=== PATIENT | male | born 1940 | race Caucasian/White ===

== ENCOUNTER 2017-02-08 19:48 | Inpatient (IN) | payer OTHER ==
[~2017-02-08] VITALS: Ht 180.3 cm; Wt 93.9 kg
[~2017-02-08 19:48] MED LIST: ASPI81TA28 PO; ATOR-26 PO; FERRTAB18 PO; FLV400 PO; FRS/40 PO; GLIP10TA3 PO; ISOS60TA2 PO; METF-383 PO; METO-217 PO; NSP/1000 PO; NTRGSL/4 UT; SITA1TAB27 PO; SLWMEC PO; WARF5TAB7 PO
[2017-02-08] MEDS ORDERED: SODIUM CHLORIDE 0.9% 1000ML 1,000 ML IV STA (20:06)
[2017-02-08] MEDS ORDERED: OPTIRAY 320 IV PRN (20:15)
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
[2017-02-08 20:18] LABS: BASO % 0.5 %; BASO ABS # 0.04 K/uL (0-0.2); COMPLETE YES; EOS % 2.1 %; HEMATOCRIT 32.8 % (42-52); IG% 0.4 %; LYMPH % 10.5 %; LYMPH ABS # 0.79 K/uL (1.2-3.4); MEAN CELL VOLUME 88.9 fL (80-100); MEAN CORPUSCULAR HEMOGLOBIN 30.1 pg (25-34); MEAN CORPUSCULAR HGB CONC 33.8 g/dl (32-36); MEAN PLATELET VOLUME 10.9 fL (7.4-10.4); MONO % 9.3 %; NEUT % 77.2 %; PLATELET COUNT 155 K/uL (130-400); RED BLOOD COUNT 3.69 M/uL (4.7-6.1); WHITE BLOOD COUNT 7.51 K/uL (4.8-10.8)
[2017-02-08 20:31] LABS: PROTHROMBIN TIME (PATIENT) 41.3 SECONDS (9.0-12.0)
[2017-02-08 20:36] LABS: BUN/CREATININE RATIO 16.3 (10-20); CALCIUM 8.6 mg/dl (8.5-10.1); CREATININE 1.5 mg/dl (0.60-1.40); MAGNESIUM 1.8 mg/dl (1.8-2.4); POTASSIUM 4.9 mmol/L (3.5-5.1)
[2017-02-08 20:37] LABS: INR 3.7 (0.9-1.1)
[2017-02-08] MEDS ORDERED: GLIP5TAB3 PO (20:44)
[2017-02-08] MEDS ORDERED: LISI-789 PO (20:44)
[2017-02-08] MEDS ORDERED: WARF5TAB90 PO ×2 (20:44)
--- NOTE | 2017-02-08 21:29 | DIAGNOSTIC IMAGING REPORT ---
HEAD CT NONCONTRAST CT DOSE: HISTORY: syncope TECHNIQUE: Multiaxial CT images of the head were performed without the use of intravenous contrast. Automated exposure control was utilized for this study. A dose lowering technique was utilized adhering to the principles of ALARA. Comparison: None. Findings: The paranasal sinuses and mastoid air cells are clear. The calvarium and skull base are intact. The ventricles and sulci are within normal limits. There is no mass, hematoma, midline shift, or acute infarct. Impression: No acute intracranial abnormality. Electronically signed by: Kings Rodrigez M.D. 02/08/2017 9:28 PM Dictated Date/Time: 02/08/2017 9:25 PM
--- NOTE | 2017-02-08 21:58 | DIAGNOSTIC IMAGING REPORT ---
CHEST, ABDOMEN AND PELVIS CTA for AORTIC DISSECTION CT DOSE: 4914.46 mGy.cm HISTORY: Syncope. Mid CHEST PAIN, DISSECTION PROTOCOL PER DR MICHAEL TECHNIQUE: Multiaxial CT images of the chest were performed both before and after the intravenous administration of contrast to evaluate the aorta. Maximal intensity projection images were also obtained. A dose lowering technique was utilized adhering to the principles of ALARA. COMPARISON STUDY: None. FINDINGS: Noncontrast imaging through the chest shows no evidence for an intramural hematoma within the thoracic aorta. The heart is mildly enlarged. Left-sided pacemaker is noted. No evidence for an aortic dissection or aneurysm. The central pulmonary arteries are patent. Moderate calcified plaque within the abdominal aorta and iliac arteries. Moderate to large right and small to moderate left pleural effusions. No pericardial effusion. No mediastinal hematoma. Mild mediastinal lymphadenopathy. Dominant subcarinal lymph node measures 2.7 x 1.4 cm. No hilar lymphadenopathy. Poststernotomy changes. The central airways are patent. No pneumothorax. A few scattered punctate calcified granulomas. Bilateral groundglass airspace opacities favor mild posterior edema. Bibasilar densities are nonspecific but favor compressive atelectasis. This is most pronounced within the right lower lobe. Multiple bilateral rib deformities favor old, healed fractures. No pneumoperitoneum. No pneumatosis. A right total hip arthroplasty. There are few small gallstones. The liver, spleen, adrenal glands, and pancreas are unremarkable. No hydronephrosis. There are 2 cysts within the right kidney both measuring approximate 2 cm. No retroperitoneal hematoma. No retroperitoneal lymphadenopathy. Bladder is not well visualized but appears to be unremarkable. Colonic diverticulosis. No bowel wall thickening or obstruction. IMPRESSION: 1. No evidence for an aortic dissection. 2. Moderate to large right and envtf-ar-vepiwoha left pleural effusions. 3. Groundglass airspace opacities within the lungs favor mild pulmonary edema. 4. Right greater than left bibasilar airspace opacities. This favors compressive atelectasis from the pleural effusions. A pneumonia could also have a similar appearance in the appropriate clinical setting. 5. No acute traumatic process within the abdomen or pelvis. 6. Additional findings as described above. Electronically signed by: Kings Rodrigez M.D. 02/08/2017 9:56 PM Dictated Date/Time: 02/08/2017 9:28 PM
[2017-02-08] MEDS ORDERED: FUROSEMIDE 40 MG/4 ML VIAL IV STA (22:28)
[2017-02-09] VITALS (12 sets, daily range): BP systolic 110–155; BP diastolic 38–83; PULSE 53–77; TEMP 36.5–36.8; O2SAT 92–98; Ht 180.3 cm; Wt 93.9 kg
[2017-02-09] MEDS ORDERED: ACETAMINOPHEN 325 MG TAB PO PRN (02:00)
[2017-02-09] MEDS ORDERED: GLUCOSE 10 TABS/TUBE PO PRN (02:15)
[2017-02-09] MEDS ORDERED: DEXTROSE 50% 50 ML SYR IV PRN (02:15)
[2017-02-09] MEDS ORDERED: GLUCOSE 40% GEL 15 GM TUBE PO PRN (02:15)
[2017-02-09] MEDS ORDERED: GLUCAGON FOR INJ 1 MG VIAL SQ PRN (02:15)
[2017-02-09 02:39] LABS: BASO % 0.3 %; BASO ABS # 0.02 K/uL (0-0.2); COMPLETE YES; EOS % 0.4 %; HEMATOCRIT 30.3 % (42-52); IG% 0.3 %; LYMPH % 13.3 %; MEAN CELL VOLUME 88.1 fL (80-100); MEAN CORPUSCULAR HEMOGLOBIN 29.4 pg (25-34); MEAN CORPUSCULAR HGB CONC 33.3 g/dl (32-36); MEAN PLATELET VOLUME 10.2 fL (7.4-10.4); MONO % 6.5 %; NEUT % 79.2 %; PLATELET COUNT 142 K/uL (130-400); RED BLOOD COUNT 3.44 M/uL (4.7-6.1); WHITE BLOOD COUNT 6.75 K/uL (4.8-10.8)
[2017-02-09 02:58] LABS: PROTHROMBIN TIME (PATIENT) 42.6 SECONDS (9.0-12.0)
[2017-02-09 03:00] LABS: INR 3.8 (0.9-1.1)
[2017-02-09 03:08] LABS: CALCIUM 8.5 mg/dl (8.5-10.1); CKMB/CK RATIO 4.4 (0-3.0); CREATININE 1.3 mg/dl (0.60-1.40); POTASSIUM 4.7 mmol/L (3.5-5.1)
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
[2017-02-09 08:05] LABS: BASO % 0.2 %; BASO ABS # 0.01 K/uL (0-0.2); COMPLETE YES; EOS % 1.7 %; HEMATOCRIT 31.1 % (42-52); IG% 0.2 %; LYMPH % 15.7 %; LYMPH ABS # 0.85 K/uL (1.2-3.4); MEAN CELL VOLUME 88.1 fL (80-100); MEAN CORPUSCULAR HEMOGLOBIN 29.5 pg (25-34); MEAN CORPUSCULAR HGB CONC 33.4 g/dl (32-36); MEAN PLATELET VOLUME 9.9 fL (7.4-10.4); NEUT % 74.2 %; PLATELET COUNT 138 K/uL (130-400); RED BLOOD COUNT 3.53 M/uL (4.7-6.1)
[2017-02-09] MEDS: LISINOPRIL 2.5 MG TAB PO SCH (08:12)
[2017-02-09] MEDS: MAGNESIUM CHLORIDE 64MG DELAYED REL TAB PO SCH ×2 (08:12→20:31)
[2017-02-09] MEDS: METOPROLOL SUCC 50MG EXT REL TAB PO SCH (08:12)
[2017-02-09] MEDS: ASPIRIN 81 MG ECTAB PO SCH (08:12)
[2017-02-09] MEDS: ISOSORBIDE MONONITRATE 60 MG TABCR PO SCH (08:13)
[2017-02-09 08:14] LABS: INR 3.5 (0.9-1.1); PROTHROMBIN TIME (PATIENT) 39.6 SECONDS (9.0-12.0)
[2017-02-09] MEDS: FUROSEMIDE INJ 40 MG in SYRINGE 0 ML IV SCH (08:15)
[2017-02-09 08:32] LABS: BUN/CREATININE RATIO 19.1 (10-20); CALCIUM 8.9 mg/dl (8.5-10.1); CREATININE 1.2 mg/dl (0.60-1.40); POTASSIUM 4.3 mmol/L (3.5-5.1)
[2017-02-09] MEDS ORDERED: AMIODARONE IV BOLUS / DRIP IV STA (08:32)
[2017-02-09 08:43] LABS: CKMB/CK RATIO 4.7 (0-3.0)
[2017-02-09] MEDS ORDERED: AMIODARONE / D5W 100 ML IV ONE (08:45)
--- NOTE | 2017-02-09 08:52 | ECHOCARDIOGRAM REPORT ---
*NOTICE TO RECEIVING [employer]PUBL[employer] AGENCY This information is strictly Confidential and protected under [place] law. [place] law prohibits you from making any further disclosure of this information unless further disclosure is expressly permitted by the written consent of the person to whom it pertains or is authorized by law. A general authorization for the release of medical or other information is not sufficient for this purpose. Hospital accepts no responsibility if the information is made available to any other person, INCLUDING THE PATIENT. Interpretation Summary * Name: ELOSIA BLANC Study Date: 02/09/2017 07:05 AM BP: 136/72 mmHg * Patient Location: C.2T\S\S239\S\1 HR: 53 * : 1940 (M/d/yyyy) Gender: Male Height: 71 in * Age: 76 yrs Ethnicity: [place] Weight: 213 lb * Ordering Physician: Ranjeet Veelz * Referring Physician: Self, Referred * Performed By: Marina Jerome RDCS * * Reason For Study: CHF * BSA: 2.2 m2 * -- Conclusions -- * Mildly dilated LV chamber size with global wall thinning. * Severely reduced LV systolic function, EF 20-25%. * The inferior and inferoseptal lew are akinetic. All other segments are severely hypokinetic except the posterior wall which contracts normally. * Grade II diastolic dysfunction. * Aortic valve sclerosis mild, without significant aortic valvular stenosis. * Moderate mitral regurgitation. * Mild left atrial enlargement. Procedure Details * A complete two-dimensional transthoracic echocardiogram was performed (2D, M-mode, Doppler and color flow Doppler). * A contrast injection of Definity was performed to improve assessment of LV function. * Contrast was injected into an intravenous site in the right arm. * One vial of Definity ultrasound contrast was diluted in normal saline to a total volume of 10 ml. A total of '3' ml of solution was administered during imaging. * Lot # [id number] of Definity utilized for procedure. * Expiration date MAR 21. * The attending nurse who injected the contrast agent was Ashley Zimmerman RN. Left Ventricle * The left ventricle is mildly dilated. * There is no thrombus. * There is global thinning of the left ventricular lew. * Left ventricular systolic function is severely reduced. * Ejection Fraction = 20-25%. * The inferior and inferoseptal lew are akinetic. All other segments are severely hypokinetic except the posterior wall which contracts normally. Right Ventricle * The right ventricular cavity size is normal (basal dimension <4.2 cm in right ventricular apical 4-chamber view). * The right ventricular systolic function is normal as assessed by tricuspid annular plane systolic excursion (TAPSE) (normal >1.5 cm). Atria * The left atrium is mildly dilated. * Right atrial size is normal. * No ASD detected; PFO is not assessed. Mitral Valve * The mitral valve anatomy is normal. * There is no mitral valve stenosis. * There is moderate mitral regurgitation. Tricuspid Valve * The tricuspid valve is normal in structure and function. Aortic Valve * The aortic valve is trileaflet. * Aortic valve sclerosis mild, without significant aortic valvular stenosis. * There is no significant aortic regurgitation. Pulmonic Valve * The pulmonary valve is not well seen, but the Doppler examination is normal without significant regurgitation or stenosis. Great Vessels * The aortic root and proximal ascending aorta are normal sized. Pericardium/Pleural * There is no pericardial effusion. Left Ventricular Diastolic Function * Diastolic dysfunction, Grade II (pseudonormalization pattern). MMode 2D Measurements and Calculations IVSd 1.0 cm LVIDd 5.9 cm LVIDs 4.7 cm LVPWd 0.97 cm IVS/LVPW 1.1 FS 19.8 % EDV(Teich) 173.6 ml ESV(Teich) 104.2 ml EF(Teich) 40.0 % EDV(cubed) 205.9 ml ESV(cubed) 106.2 ml EF(cubed) 48.4 % LV mass(C)d 239.8 grams LV mass(C)dI 110.7 grams/m\S\2 SV(Teich) 69.4 ml SI(Teich) 32.0 ml/m\S\2 SV(cubed) 99.7 ml SI(cubed) 46.0 ml/m\S\2 Ao root diam 3.3 cm Ao root area 8.6 cm\S\2 ACS 1.8 cm LA dimension 4.0 cm asc Aorta Diam 3.3 cm LA/Ao 1.2 LVOT diam 1.9 cm LVOT area 2.9 cm\S\2 Doppler Measurements and Calculations MV E max murray 117.2 cm/sec MV A max murray 85.5 cm/sec MV E/A 1.4 MV dec time 0.19 sec LV V1 max PG 1.9 mmHg LV V1 max 68.0 cm/sec MR max murray 483.2 cm/sec MR max PG 93.4 mmHg MR mean murray 386.0 cm/sec MR mean PG 66.0 mmHg MR VTI 178.7 cm PA V2 max 63.0 cm/sec PA max PG 1.6 mmHg PA acc slope 220.0 cm/sec\S\2 PA acc time 0.17 sec PA pr(Accel) 4.0 mmHg
[2017-02-09] MEDS: INSULIN ASPART 100 UNITS/ML 3 ML PEN SC SCH ×4 (08:57→20:34)
[2017-02-09] MEDS: AMIODARONE 200 MG TAB PO SCH ×3 (09:00→20:31)
[2017-02-09] MEDS ORDERED: AMIODARONE / D5W 200 ML IV SCH (09:00)
[2017-02-09] MEDS ORDERED: ATORVASTATIN 40 MG TAB PO SCH (09:00)
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
[2017-02-09] MEDS: AMIODARONE / D5W 200 ML IV SCH (14:26)
[2017-02-09 14:51] LABS: CKMB/CK RATIO 3.5 (0-3.0)
[2017-02-10] VITALS (11 sets, daily range): BP systolic 107–167; BP diastolic 54–90; PULSE 58–79; TEMP 36.5–36.8; O2SAT 93–97
[2017-02-10] MEDS: AMIODARONE / D5W 200 ML IV SCH (02:31)
[2017-02-10 06:45] LABS: BASO % 0.4 %; BASO ABS # 0.02 K/uL (0-0.2); COMPLETE YES; EOS % 4.3 %; HEMATOCRIT 31.1 % (42-52); IG% 0.4 %; LYMPH % 13.8 %; LYMPH ABS # 0.77 K/uL (1.2-3.4); MEAN CELL VOLUME 87.6 fL (80-100); MEAN CORPUSCULAR HEMOGLOBIN 29.3 pg (25-34); MEAN CORPUSCULAR HGB CONC 33.4 g/dl (32-36); MEAN PLATELET VOLUME 10.3 fL (7.4-10.4); MONO % 8.2 %; NEUT % 72.9 %; PLATELET COUNT 144 K/uL (130-400); RED BLOOD COUNT 3.55 M/uL (4.7-6.1); WHITE BLOOD COUNT 5.58 K/uL (4.8-10.8)
[2017-02-10 07:00] LABS: INR 2.8 (0.9-1.1); PROTHROMBIN TIME (PATIENT) 30.8 SECONDS (9.0-12.0)
[2017-02-10 07:21] LABS: BUN/CREATININE RATIO 17.9 (10-20); CALCIUM 8.2 mg/dl (8.5-10.1); CREATININE 1.3 mg/dl (0.60-1.40); POTASSIUM 4.1 mmol/L (3.5-5.1)
[2017-02-10] MEDS: FUROSEMIDE INJ 40 MG in SYRINGE 0 ML IV SCH (08:05)
[2017-02-10] MEDS: AMIODARONE 200 MG TAB PO SCH ×3 (08:06→20:49)
[2017-02-10] MEDS: MAGNESIUM CHLORIDE 64MG DELAYED REL TAB PO SCH ×2 (08:07→20:50)
[2017-02-10] MEDS: LISINOPRIL 2.5 MG TAB PO SCH (08:07)
[2017-02-10] MEDS: METOPROLOL SUCC 50MG EXT REL TAB PO SCH (08:07)
[2017-02-10] MEDS: ISOSORBIDE MONONITRATE 60 MG TABCR PO SCH (08:08)
[2017-02-10] MEDS: ATORVASTATIN 40 MG TAB PO SCH (08:08)
[2017-02-10] MEDS: ASPIRIN 81 MG ECTAB PO SCH (08:08)
[2017-02-10] MEDS: INSULIN ASPART 100 UNITS/ML 3 ML PEN SC SCH ×4 (08:15→20:49)
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
[2017-02-11 03:30] VITALS: BP 123/69; PULSE 60; TEMP 36.7; O2SAT 95
[2017-02-11 06:54] VITALS: BP 127/72; PULSE 59; TEMP 36.7; O2SAT 96
[2017-02-11 07:10] LABS: BASO % 0.3 %; BASO ABS # 0.02 K/uL (0-0.2); COMPLETE YES; HEMATOCRIT 30.5 % (42-52); IG% 0.6 %; LYMPH % 10.4 %; LYMPH ABS # 0.73 K/uL (1.2-3.4); MEAN CELL VOLUME 87.4 fL (80-100); MEAN CORPUSCULAR HEMOGLOBIN 29.2 pg (25-34); MEAN CORPUSCULAR HGB CONC 33.4 g/dl (32-36); MEAN PLATELET VOLUME 10.6 fL (7.4-10.4); MONO % 10.7 %; PLATELET COUNT 149 K/uL (130-400); RED BLOOD COUNT 3.49 M/uL (4.7-6.1)
[2017-02-11 07:19] LABS: INR 1.9 (0.9-1.1); PROTHROMBIN TIME (PATIENT) 20.5 SECONDS (9.0-12.0)
[2017-02-11] MEDS: MAGNESIUM CHLORIDE 64MG DELAYED REL TAB PO SCH (07:35)
[2017-02-11] MEDS: LISINOPRIL 2.5 MG TAB PO SCH (07:35)
[2017-02-11] MEDS: ATORVASTATIN 40 MG TAB PO SCH (07:36)
[2017-02-11] MEDS: METOPROLOL SUCC 50MG EXT REL TAB PO SCH (07:36)
[2017-02-11] MEDS: ISOSORBIDE MONONITRATE 60 MG TABCR PO SCH (07:36)
[2017-02-11] MEDS: ASPIRIN 81 MG ECTAB PO SCH (07:36)
[2017-02-11] MEDS: AMIODARONE 200 MG TAB PO SCH (07:36)
[2017-02-11 07:38] LABS: BUN/CREATININE RATIO 19.9 (10-20); CALCIUM 8.4 mg/dl (8.5-10.1); CREATININE 1.4 mg/dl (0.60-1.40); POTASSIUM 4.8 mmol/L (3.5-5.1)
[2017-02-11] MEDS: INSULIN ASPART 100 UNITS/ML 3 ML PEN SC SCH ×2 (07:42→11:00)
[2017-02-11] MEDS: FUROSEMIDE INJ 40 MG in SYRINGE 0 ML IV SCH (07:43)
[2017-02-11 11:36] VITALS: BP 121/70; PULSE 59; TEMP 36.4; O2SAT 95
[2017-02-11] MEDS ORDERED: WARFARIN SOD 2.5 MG TAB PO ONE (13:38)
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
[2017-02-11 14:19] VITALS: BP 121/70; PULSE 59; TEMP 36.4; O2SAT 95
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
[2017-02-11] MEDS ORDERED: WARF5TAB90 PO (16:49)
[2017-02-11] MEDS ORDERED: CRD200 PO (16:49)
[2017-02-11] MEDS ORDERED: ATOR-26 PO (16:49)
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
[2017-02-11] MEDS ORDERED: AMIODARONE 200 MG TAB PO SCH (21:00)
[2017-02-12] MEDS ORDERED: WARFARIN SOD 2.5 MG TAB PO SCH (16:00)
== END 2017-02-11 17:36 | disposition home or self-care (01) | DRG 308 ==
LOC: EDBD 19:48 → C.EDC 19:49 → C.2T 22:37 → ENRESERV 22:46
PROVIDERS: ADMIT Internal Medicine; ATTEND Hospitalist
DX: I47.2 Ventricular tachycardia (principal); I50.23 Acute on chronic systolic (congestive) heart failure; E87.1 Hypo-osmolality and hyponatremia; R55 Syncope and collapse; I11.9 Hypertensive heart disease without heart failure; I48.0 Paroxysmal atrial fibrillation; I25.10 Atherosclerotic heart disease of native coronary artery without angina pectoris; I25.5 Ischemic cardiomyopathy; E11.9 Type 2 diabetes mellitus without complications; E78.5 Hyperlipidemia, unspecified; Z79.899 Other long term (current) drug therapy; Z79.01 Long term (current) use of anticoagulants; Z79.84 Long term (current) use of oral hypoglycemic drugs; Z79.82 Long term (current) use of aspirin; Z95.1 Presence of aortocoronary bypass graft; Z95.5 Presence of coronary angioplasty implant and graft; Z86.718 Personal history of other venous thrombosis and embolism; Z95.810 Presence of automatic (implantable) cardiac defibrillator; Z87.891 Personal history of nicotine dependence; Z83.3 Family history of diabetes mellitus; Z82.49 Family history of ischemic heart disease and other diseases of the circulatory system; V48.9XXA Unspecified car occupant injured in noncollision transport accident in traffic accident, initial encounter; Y93.I9 Activity, other involving external motion; Y99.8 Other external cause status

== ENCOUNTER 2017-03-06 16:32 | Inpatient (IN) | payer OTHER ==
[~2017-03-06] VITALS: Ht 180.3 cm; Wt 92.4 kg
[~2017-03-06 16:32] MED LIST changes: +CRD200 PO; -GLIP10TA3 PO; +GLIP5TAB3 PO; +LISI-789 PO; -NSP/1000 PO; -SITA1TAB27 PO; -WARF5TAB7 PO; +WARF5TAB90 PO
[2017-03-06] MEDS ORDERED: SODIUM CHLORIDE 0.9% 1000ML 250 ML IV STA (16:54)
[2017-03-06 17:27] LABS: BASO % 0.4 %; BASO ABS # 0.03 K/uL (0-0.2); COMPLETE YES; EOS % 2.8 %; HEMATOCRIT 34.4 % (42-52); IG% 0.3 %; LYMPH % 5.8 %; LYMPH ABS # 0.43 K/uL (1.2-3.4); MEAN CELL VOLUME 87.1 fL (80-100); MEAN CORPUSCULAR HEMOGLOBIN 28.6 pg (25-34); MEAN CORPUSCULAR HGB CONC 32.8 g/dl (32-36); MEAN PLATELET VOLUME 10.4 fL (7.4-10.4); MONO % 9.2 %; NEUT % 81.5 %; PLATELET COUNT 161 K/uL (130-400); RED BLOOD COUNT 3.95 M/uL (4.7-6.1); WHITE BLOOD COUNT 7.38 K/uL (4.8-10.8)
[2017-03-06 17:41] LABS: PROTHROMBIN TIME (PATIENT) 58.9 SECONDS (9.0-12.0)
--- NOTE | 2017-03-06 17:42 | DIAGNOSTIC IMAGING REPORT ---
SINGLE VIEW CHEST CLINICAL HISTORY: Generalized abdominal pain. Dyspnea. FINDINGS: An AP, portable, upright chest radiograph is compared to study dated 07/14/2013 and correlated with chest CT dated 02/08/2017. The examination is degraded by portable technique and patient rotation. A 2-lead cardiac AICD is unchanged in position and largely obscures the left mid chest. The patient is status post midline sternotomy. The heart is markedly enlarged and there is atherosclerotic calcification of the thoracic aorta. There is pulmonary vascular congestion. There are moderate right and small left pleural effusions with bibasilar consolidation. No pneumothorax is seen. The skeletal structures are osteopenic. The bony thorax is grossly intact. IMPRESSION: 1. Cardiomegaly and AICD with evidence of congestive failure. 2. Right larger left pleural effusions with bibasilar consolidation. This likely represents atelectasis. Clinical correlation will be required. Electronically signed by: Albino Malave M.D. 03/06/2017 5:40 PM Dictated Date/Time: 03/06/2017 5:39 PM
[2017-03-06 17:44] LABS: BUN/CREATININE RATIO 18.7 (10-20); CALCIUM 8.9 mg/dl (8.5-10.1); CREATININE 1.4 mg/dl (0.60-1.40); MAGNESIUM 2.1 mg/dl (1.8-2.4); POTASSIUM 5.2 mmol/L (3.5-5.1)
[2017-03-06] MEDS ORDERED: METO50TA7 PO (17:48)
[2017-03-06] MEDS ORDERED: WARF5TAB7 PO (17:48)
[2017-03-06 18:34] LABS: INR 5.1 (0.9-1.1)
--- NOTE | 2017-03-06 18:49 | EMERGENCY ROOM VISIT NOTE ---
History Report prepared by Stephen: Alaina Martinez Under the Supervision of: Dr. Abdulaziz Mullins M.D. First contact with patient: 16:45 Chief Complaint: ABNORMAL LABS Stated Complaint: HIGH POTASSIUM- PHYSICIAN REFERRED History of Present Illness The patient is a 77 year old male who presents to the Emergency Room with complaints of persistent high potassium starting earlier today. The patient has a pacemaker defibrillator in place. It has shocked him 2 times recently because his heart has gone out of rhythm. He has been having regular blood work to monitor his sodium and potassium levels because of this. Today his potassium was found to be 6.1 and he was referred to the ED by his PCP. He has been feeling well recently. He has had SOB with exertion. He denies any fever, chills , cough, congestion, dysuria, chest pain, weight gain, or diarrhea. He was started on amiodarone recently. He denies any history of kidney problems. He is on Lasix and coumadin. He has a history of diabetes. Source of History: patient, spouse/significant other Onset: earlier today Position: other (global) Symptom Intensity: 6.1 Quality: other (high potassium) Timing: other (persistent) Associated Symptoms: + SOB (with exertion), No fevers, No chills, No cough, No chest pain, No diarrhea, No urinary symptoms Note: Pt denies congestion or diarrhea. Review of Systems See HPI for pertinent positives and negatives. A total of ten systems were reviewed and were otherwise negative. Past Medical & Surgical Medical Problems: (1) Coronary artery disease (2) Diabetes mellitus, type II (3) Diverticula of colon (4) Dyslipidemia (5) History of adenomatous polyp of colon (6) History of DVT (deep vein thrombosis) (7) History of pneumothorax (8) Hypertension (9) Systolic CHF (10) V tach Surgical Problems: (1) H/O parathyroidectomy (2) Status post coronary artery bypass grafting (3) Status post coronary artery stent placement (4) Status post placement of cardiac pacemaker Social History Problems: (1) Ischemic cardiomyopathy Family History Diabetes mellitus FATHER MOTHER Heart disease FATHER MOTHER Social History Smoking Status: Former Smoker Alcohol Use: none Current/Historical Medications Scheduled Amiodarone HCl (Amiodarone HCl), 200 MG PO BID Aspirin (Aspirin Ec), 81 MG PO DAILY Atorvastatin (Lipitor), 40 MG PO DAILY Cholecalciferol (Vitamin D3), 2,000 INTER.UNIT PO DAILY Folic Acid (Folic Acid), 400 MCG PO DAILY Furosemide (Lasix), 40 MG PO DIRECTED Glipizide (Glucotrol), 5 MG PO BID Isosorbide Mononitrate (Imdur Ext Rel), 120 MG PO QAM Magnesium Chloride (Slow-Mag Tab), 2 TAB PO BID Metoprolol Succ (Toprol Xl) (Toprol-Xl), 50 MG PO UD Nitroglycerin (Nitrostat), 0.4 MG UT PRN Warfarin Sod (Jantoven), 5 MG PO QPM [Ferrous fum-vit c], 1 TAB PO BID Allergies Coded Allergies: Clopidogrel (Verified Allergy, Unknown, RASH,EDEMA, 03/06/17) Physical Exam Vital Signs Date Time Temp Pulse Resp B/P (MAP) Pulse Ox O2 Delivery O2 Flow Rate FiO2 03/06/17 19:30 60 18 97 Room Air 03/06/17 19:00 60 16 98 Room Air 03/06/17 18:30 59 26 96 Room Air 03/06/17 18:05 60 16 135/65 97 Room Air 03/06/17 16:58 60 03/06/17 16:41 36.5 64 20 141/67 91 Room Air Physical Exam GENERAL: Awake, alert, well-appearing, in no distress HENT: Normocephalic, atraumatic. Dry mucous membranes. EYES: Normal conjunctiva. Sclera non-icteric. NECK: Supple. No nuchal rigidity. FROM. No JVD. RESPIRATORY: Clear to auscultation. CARDIAC: Regular rate, normal rhythm. Extremities warm and well perfused. Pulses equal. ABDOMEN: Soft, non-distended. No tenderness to palpation. No rebound or guarding. No masses. RECTAL: Deferred. MUSCULOSKELETAL: Chest examination reveals no tenderness. The back is symmetrical on inspection without obvious abnormality. There is no CVA tenderness to palpation. No joint edema. LOWER EXTREMITIES: Calves are equal size bilaterally and non-tender. No edema. No discoloration. NEURO: Normal sensorium. No sensory or motor deficits noted. SKIN: No rash or jaundice noted. Medical Decision & Procedures ER Provider Diagnostic Interpretation: Radiology results as stated below per my review and radiologist interpretation: SINGLE VIEW CHEST CLINICAL HISTORY: Generalized abdominal pain. Dyspnea. FINDINGS: An AP, portable, upright chest radiograph is compared to study dated 07/14/2013 and correlated with chest CT dated 02/08/2017. The examination is degraded by portable technique and patient rotation. A 2-lead cardiac AICD is unchanged in position and largely obscures the left mid chest. The patient is status post midline sternotomy. The heart is markedly enlarged and there is atherosclerotic calcification of the thoracic aorta. There is pulmonary vascular congestion. There are moderate right and small left pleural effusions with bibasilar consolidation. No pneumothorax is seen. The skeletal structures are osteopenic. The bony thorax is grossly intact. IMPRESSION: 1. Cardiomegaly and AICD with evidence of congestive failure. 2. Right larger left pleural effusions with bibasilar consolidation. This likely represents atelectasis. Clinical correlation will be required. Electronically signed by: Albino Malave M.D. 03/06/2017 5:40 PM Dictated Date/Time: 03/06/2017 5:39 PM Laboratory Results Test 03/06/17 17:10 Immature Granulocyte % (Auto) 0.3 % White Blood Count 7.38 K/uL (4.8-10.8) Red Blood Count 3.95 M/uL (4.7-6.1) Hemoglobin 11.3 g/dL (14.0-18.0) Hematocrit 34.4 % (42-52) Mean Corpuscular Volume 87.1 fL (80-100) Mean Corpuscular Hemoglobin 28.6 pg (25-34) Mean Corpuscular Hemoglobin Concent 32.8 g/dl (32-36) Platelet Count 161 K/uL (130-400) Mean Platelet Volume 10.4 fL (7.4-10.4) Neutrophils (%) (Auto) 81.5 % Lymphocytes (%) (Auto) 5.8 % Monocytes (%) (Auto) 9.2 % Eosinophils (%) (Auto) 2.8 % Basophils (%) (Auto) 0.4 % Neutrophils # (Auto) 6.01 K/uL (1.4-6.5) Lymphocytes # (Auto) 0.43 K/uL (1.2-3.4) Monocytes # (Auto) 0.68 K/uL (0.11-0.59) Eosinophils # (Auto) 0.21 K/uL (0-0.5) Basophils # (Auto) 0.03 K/uL (0-0.2) Immature Granulocyte # (Auto) 0.02 K/uL (0.00-0.02) Direct Bilirubin 0.3 mg/dl (0-0.2) Troponin I 0.021 ng/ml (0-0.045) Pro-B-Type Natriuretic Peptide 77590 pg/ml (0-900) Lipase 140 U/L (73-393) Laboratory results reviewed by me Medications Administered Medications (Trade) Dose Ordered Sig/Gustavo Route Start Time Stop Time Status Last Admin Dose Admin Sodium Chloride 250 ml @ 100 mls/hr Q2H30M STAT IV 03/06/17 16:54 03/07/17 07:32 DC 03/06/17 17:17 100 MLS/HR ECG Indication: other (hyperkalemia) Rate (beats per minute): 61 Rhythm: other (atrial paced) Findings: LBBB, no acute ischemic change, left axis deviation Comparison ECG Date: 11-Feb-2017 Change: no significant change ED Course 1651: The patient was evaluated in room A2. A complete history and physical exam was performed. 1653: NSS 250 ml @ 100 mls/hr IV. 1825: Upon reexamination, the patient was resting comfortably. I discussed the test results and treatment plan with him.He verbalized agreement of the treatment plan. The patient will be evaluated for further management. 1901: I discussed the patient's case with Dr. Michel, [place] [facility]. The patient will be evaluated for further treatment and disposition. Medical Decision I reviewed the patient's past medical history, medications, and the nursing notes as described above. Differential diagnosis: dehydration, electrolyte abnormality, renal failure, pneumonia, bronchitis, ACS, arrhythmia. The patient is a 77-year-old gentleman with a past medical history of CAD, CHF status post AICD recently admitted for repeated appropriate defibrillations from his device presents emergency department after having follow-up lab work to monitor his electrolytes and was found to have a potassium of 6.1. Otherwise the patient reports his same dyspnea on exertion since his discharge but otherwise has been feeling okay. Potassium here is 5.1 however the patient's sodium is 122. BUN/creatinine < 20 over patient does appear clinically dry. ENT [id number] and the elevated from recent. Chest x-ray with question of venous congestion but patient denies any new respiratory symptoms since his discharge. The patient's multiple comorbidities and declining sodium will need admission for appropriate diagnosis and treatment. Case d/w Monica Shabazz hospitalist, who will admit the patient for further management. Medication Reconcilliation Current Medication List: was personally reviewed by me Blood Pressure Screening Patient's blood pressure: Normal blood pressure Blood pressure disposition: Did not require urgent referral Consults Time Called: [id number] Consulting Physician: Monica Shabazz hospitalist Returned Call: [phone] Discussed the patient's case. The patient will be evaluated for further treatment and disposition. Impression Primary Impression: Hyponatremia Scribe Attestation The scribe's documentation has been prepared under my direction and personally reviewed by me in its entirety. I confirm that the note above accurately reflects all work, treatment, procedures, and medical decision making performed by me. Departure Information Dispostion Being Evaluated By Hospitalist Referrals Krystian Ellis D.OWaylon (PCP) Patient Instructions My [facility]
[2017-03-06] MEDS ORDERED: ASCORBIC ACID PO (19:52)
[2017-03-06] MEDS ORDERED: FERROUS FUMARATE PO (19:52)
[2017-03-06 20:11] VITALS: BMI 28.3; BMI 28.9
[2017-03-06] MEDS ORDERED: GLUCAGON FOR INJ 1 MG VIAL SQ PRN (20:15)
[2017-03-06] MEDS ORDERED: POLYETHYLENE (MIRALAX) 17 GM PACK PO PRN (20:15)
[2017-03-06] MEDS ORDERED: GLUCOSE 10 TABS/TUBE PO PRN (20:15)
[2017-03-06] MEDS ORDERED: GLUCOSE 40% GEL 15 GM TUBE PO PRN (20:15)
[2017-03-06] MEDS ORDERED: NITROGLYCERIN 0.4 MG SL PER TAB CHARGE SL PRN (20:15)
[2017-03-06] MEDS ORDERED: DEXTROSE 50% 50 ML SYR IV PRN (20:15)
[2017-03-06] MEDS ORDERED: ACETAMINOPHEN 325 MG TAB PO PRN (20:15)
[2017-03-06] MEDS ORDERED: ONDANSETRON INJ 2 MG/ML 2 ML VIAL IV PRN (20:15)
[2017-03-06] MEDS ORDERED: VTMD1000 PO (20:36)
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
[2017-03-06] MEDS: INSULIN ASPART 100 UNITS/ML 3 ML PEN SC SCH (21:00)
[2017-03-06] MEDS ORDERED: INFLUENZA ADMINISTRATION CHARGE ONE (21:30)
[2017-03-06] MEDS ORDERED: INFLUENZA VACCINE HIGH DOSE 65+ 0.5 ML SYR IM. ONE (21:30)
[2017-03-06 21:40] VITALS: BP 137/62; PULSE 54; TEMP 36.6; Ht 180.3 cm; Wt 92.4 kg
[2017-03-06] MEDS: METOPROLOL SUCC 50MG EXT REL TAB PO SCH (22:09)
[2017-03-06] MEDS: AMIODARONE 200 MG TAB PO SCH (22:09)
[2017-03-06] MEDS: INSULIN GLARGINE SOLOSTAR 100 UNITS/ML 3 ML PEN SC SCH (22:10)
[2017-03-06] MEDS: SODIUM CHLORIDE 0.9% 1000ML 1,000 ML IV SCH (22:20)
[2017-03-06 23:09] VITALS: BP 114/63; PULSE 59; TEMP 36.5; O2SAT 98
[2017-03-06 23:53] LABS: BUN/CREATININE RATIO 18.8 (10-20); CALCIUM 8.7 mg/dl (8.5-10.1); CREATININE 1.3 mg/dl (0.60-1.40); POTASSIUM 4.8 mmol/L (3.5-5.1)
[2017-03-07] VITALS (7 sets, daily range): BP systolic 120–133; BP diastolic 57–71; PULSE 56–79; TEMP 36.4–37.1; O2SAT 85–98
[2017-03-07] MEDS: MAGNESIUM CHLORIDE 64MG DELAYED REL TAB PO SCH ×3 (00:16→20:46)
[2017-03-07] MEDS: SODIUM CHLORIDE 0.9% 1000ML 1,000 ML IV SCH (00:19)
[2017-03-07 01:32] LABS: URINE APPEARANCE CLEAR (CLEAR); URINE BILIRUBIN NEG (NEG); URINE COLOR YELLOW; URINE EPITHELIAL CELL AUTO 0-5 /lpf (0-5); URINE NITRITE NEG (NEG); URINE PH 5.5 (4.5-7.5); URINE SPECIFIC GRAVITY 1.016 (1.000-1.030); UROBILINOGEN NEG (NEG)
[2017-03-07 01:36] LABS: MANUAL MICROSCOPIC REQUIRED? NO; REVIEW REQ? NO
[2017-03-07 03:47] LABS: HEMATOCRIT 30.6 % (42-52); MEAN CELL VOLUME 86.4 fL (80-100); MEAN CORPUSCULAR HEMOGLOBIN 29.1 pg (25-34); MEAN PLATELET VOLUME 9.5 fL (7.4-10.4); PLATELET COUNT 127 K/uL (130-400); RED BLOOD COUNT 3.54 M/uL (4.7-6.1); WHITE BLOOD COUNT 7.31 K/uL (4.8-10.8)
[2017-03-07 04:12] LABS: PROTHROMBIN TIME (PATIENT) 53.9 SECONDS (9.0-12.0)
[2017-03-07 04:15] LABS: MEAN CORPUSCULAR HGB CONC 33.7 g/dl (32-36)
[2017-03-07 04:17] LABS: INR 4.7 (0.9-1.1)
[2017-03-07 04:29] LABS: BUN/CREATININE RATIO 19.8 (10-20); CALCIUM 8.5 mg/dl (8.5-10.1); CREATININE 1.3 mg/dl (0.60-1.40); POTASSIUM 5.7 mmol/L (3.5-5.1)
[2017-03-07] MEDS: INSULIN ASPART 100 UNITS/ML 3 ML PEN SC SCH ×4 (07:00→20:47)
[2017-03-07] MEDS ORDERED: SODIUM POLYST. SULF SUSP 15G/60ML PO STA (07:19)
[2017-03-07] MEDS ORDERED: INSULIN ASPART 100 UNITS/ML 3 ML PEN SC STA (07:20)
[2017-03-07] MEDS ORDERED: DEXTROSE 50% 50 ML SYR IV STA (07:20)
[2017-03-07] MEDS ORDERED: ALBUTEROL 0.5% NEB SOLN 2.5 MG/0.5 ML VIAL INH STA (07:20)
[2017-03-07] MEDS ORDERED: DEXTROSE 50% 50 ML SYR IV SCH (07:45)
[2017-03-07] MEDS ORDERED: INSULIN HUMAN REGULAR PER UNIT 10 UNITS in SYRINGE 9.9 ML IV SCH (07:46)
[2017-03-07] MEDS: CHOLECALCIFEROL 1000 INTER.UNIT TAB PO SCH (08:12)
[2017-03-07] MEDS: AMIODARONE 200 MG TAB PO SCH ×2 (08:13→20:46)
[2017-03-07] MEDS: METOPROLOL SUCC 50MG EXT REL TAB PO SCH ×2 (08:13→20:46)
[2017-03-07] MEDS: ATORVASTATIN 40 MG TAB PO SCH (08:13)
[2017-03-07] MEDS: FoLIC ACID TAB 400 MCG TAB PO SCH (08:14)
[2017-03-07] MEDS: INSULIN GLARGINE SOLOSTAR 100 UNITS/ML 3 ML PEN SC SCH ×2 (08:17→20:48)
[2017-03-07 08:29] LABS: BUN/CREATININE RATIO 17.1 (10-20); CREATININE 1.2 mg/dl (0.60-1.40); POTASSIUM 4.7 mmol/L (3.5-5.1)
[2017-03-07] MEDS: ASPIRIN 81 MG ECTAB PO SCH (08:37)
[2017-03-07] MEDS: ISOSORBIDE MONONITRATE 60 MG TABCR PO SCH (08:37)
[2017-03-07] MEDS ORDERED: FUROSEMIDE 40 MG TAB PO SCH (09:00)
[2017-03-07 16:26] LABS: BUN/CREATININE RATIO 16.4 (10-20); CALCIUM 8.5 mg/dl (8.5-10.1); CREATININE 1.3 mg/dl (0.60-1.40); POTASSIUM 4.7 mmol/L (3.5-5.1)
[2017-03-07 16:29] LABS: ALB/GLOB RATIO 0.8 (0.9-2)
[2017-03-07] MEDS ORDERED: SODIUM CHLORIDE 0.9% 1000ML 1,000 ML IV ONE (17:28)
--- NOTE | 2017-03-07 17:35 | Progress Note ---
Internal Med Progress Note Date of Service: Mar 07, 2017. Provider Documentation: SUBJECTIVE: patient seen and examined today at bedside. patient is comfortable and denies symptoms of chest pain or shortness of breath. denies feeling lightheaded. denies edema. he is aware that he is in the hospital for lab abnormalities. OBJECTIVE: Exam: General Appearance: no apparent distress Head: normocephalic, atraumatic Eyes: normal inspection ENT: normal ENT inspection, hearing grossly normal, pharynx normal Neck: supple, no JVD, trachea midline Respiratory/Chest: lungs clear, normal breath sounds, no respiratory distress, no accessory muscle use Cardiovascular: heart rate around 60 beats per minute, regular rhythm Abdomen/GI: normal bowel sounds, non tender, soft Back: normal inspection Extremities: normal inspection, no pedal edema Neurologic/Psych: no motor/sensory deficits, alert, normal mood/affect, oriented x 3 ASSESSMENT & PLAN: 77 yoM with h/o ICD for chronic systolic heart failure with recent appropriate firings for electrolyte abnormalities in recent weeks presents with hyponatremia and hyperkalemia 1. Hyperkalemia - avoid RICK inhibitors or other potassium sparing agents, resolving after Kayexalate, insulin with dextrose, and neb treatments 2. Hypovolemic hypotonic hyponatremia - likely due to history of low salt diet and on diuretics at home. hold home dose Lasix of 20 mg q48 hours. Serum sodium improved from 122 to 127 after IV hydration. will restart IV hydration 3. chronic systolic heart failure with ICD - stable issues 4. DMII-recently taken off Metformin with request from patient and his to stay off it and use insulin instead. However, PCP opted to increase glipizide from 5mg daily to 5mg BID recently. Sugar is at goal. Cont Lantus/ISS with carb coverage while in the hospital. 5. CAD-cont medical management with Toprol XL, Lipitor, ASA 81 6. Supratherapeutic INR-hold warfarin on admission. No active bleeding at this time. 7. Atrial fibrillation-on coumadin-held as above. Recently started on amiodarone one month ago and doing well overall with this medication. Cont Toprol (recently increased after vtach episode). 8. Anemia-chronic stable since prior discharge, likely multifactorial including 2/2 recent hospitalization with frequent phlebotomy and anemia of chronic inflammation. Cont to monitor. No active bleeding or bruising per patient report. DVT PROPHYLAXIS serotherapeutic INR, hold warfarin DISPOSITION will re-assess labs in the AM. if supratherapeutic INR continues to trend down, serum potassium stable, and near normal levels of serum sodium, paient may be potentially discharged to home tomorrow Vital Signs: Date Time Temp Pulse Resp B/P (MAP) Pulse Ox O2 Delivery O2 Flow Rate FiO2 03/07/17 16:00 Room Air 03/07/17 15:13 36.9 56 20 121/67 (85) 98 Nasal Cannula 1.0 03/07/17 11:52 36.7 60 20 133/66 (88) 98 Nasal Cannula 1.0 03/07/17 08:00 Nasal Cannula 2.0 03/07/17 07:40 79 18 85 Room Air 03/07/17 07:38 37.1 62 20 132/71 (91) 86 Room Air 03/07/17 04:00 Room Air 03/07/17 03:10 36.8 58 19 122/66 (84) 95 Room Air 03/07/17 00:05 Room Air 03/06/17 23:09 36.5 59 19 114/63 (80) 98 Room Air 03/06/17 21:40 36.6 54 20 137/62 03/06/17 21:00 Room Air 03/06/17 20:11 Room Air 03/06/17 20:00 60 25 96 Room Air 03/06/17 19:30 60 18 97 Room Air 03/06/17 19:00 60 16 98 Room Air 03/06/17 18:30 59 26 96 Room Air 03/06/17 18:05 60 16 135/65 97 Room Air Lab Results: Results Past 24 Hours Test 03/06/17 22:31 03/06/17 23:15 03/07/17 01:14 03/07/17 03:36 Range/Units Bedside Glucose 158 70-99 mg/dl Sodium Level 126 127 136-145 mmol/L Potassium Level 4.8 5.7 3.5-5.1 mmol/L Chloride Level 93 97 98-107 mmol/L Carbon Dioxide Level 24 26 21-32 mmol/L Anion Gap 9.0 4.0 3-11 mmol/L Blood Urea Nitrogen 24 26 7-18 mg/dl Creatinine 1.30 1.30 0.60-1.40 mg/dl Est Creatinine Clear Calc Drug Dose 57.0 57.0 ml/min Estimated GFR () 61.9 61.9 Estimated GFR (Non- 53.4 53.4 BUN/Creatinine Ratio 18.8 19.8 10-20 Random Glucose 208 159 70-99 mg/dl Osmolality 270 280-300 mOsm/kg Calcium Level 8.7 8.5 8.5-10.1 mg/dl Magnesium Level 2.0 1.8-2.4 mg/dl Urine Color YELLOW Urine Appearance CLEAR CLEAR Urine pH 5.5 4.5-7.5 Urine Specific [place] 1.016 1.000-1.030 Urine Protein TRACE NEG Urine Glucose (UA) NEG NEG Urine Ketones NEG NEG Urine Occult Blood NEG NEG Urine Nitrite NEG NEG Urine Bilirubin NEG NEG Urine Urobilinogen NEG NEG Urine Leukocyte Esterase NEG NEG Urine WBC (Auto) 0 0-5 /hpf Urine RBC (Auto) 0-4 0-4 /hpf Urine Hyaline Casts (Auto) 0 0-5 /lpf Urine Epithelial Cells (Auto) 0-5 0-5 /lpf Urine Bacteria (Auto) NEG NEG Urine Osmolality 266 500-800 mOms/kg Urine Random Creatinine 43.0 mg/dl Urine Random Sodium 24 mEq/L Urine Random Urea Nitrogen 465 mg/dl White Blood Count 7.31 4.8-10.8 K/uL Red Blood Count 3.54 4.7-6.1 M/uL Hemoglobin 10.3 14.0-18.0 g/dL Hematocrit 30.6 42-52 % Mean Corpuscular Volume 86.4 80-100 fL Mean Corpuscular Hemoglobin 29.1 25-34 pg Mean Corpuscular Hemoglobin Concent 33.7 32-36 g/dl RDW Standard Deviation 49.3 36.4-46.3 fL RDW Coefficient of Variation 15.2 11.5-14.5 % Platelet Count 127 130-400 K/uL Mean Platelet Volume 9.5 7.4-10.4 fL Prothrombin Time 53.9 9.0-12.0 SECONDS Prothromb Time International Ratio 4.7 0.9-1.1 Estimated Average Glucose 157 mg/dl Hemoglobin A1c 7.1 4.5-5.6 % Test 03/07/17 06:06 03/07/17 07:51 03/07/17 11:31 03/07/17 15:33 Range/Units Bedside Glucose 131 123 70-99 mg/dl Sodium Level 127 127 136-145 mmol/L Potassium Level 4.7 4.7 3.5-5.1 mmol/L Chloride Level 95 95 98-107 mmol/L Carbon Dioxide Level 25 24 21-32 mmol/L Anion Gap 7.0 8.0 3-11 mmol/L Blood Urea Nitrogen 21 21 7-18 mg/dl Creatinine 1.20 1.30 0.60-1.40 mg/dl Est Creatinine Clear Calc Drug Dose 61.7 57.0 ml/min Estimated GFR () 68.1 61.9 Estimated GFR (Non- 58.8 53.4 BUN/Creatinine Ratio 17.1 16.4 10-20 Random Glucose 144 180 70-99 mg/dl Calcium Level 9.0 8.5 8.5-10.1 mg/dl Total Bilirubin 0.7 0.2-1 mg/dl Aspartate Amino Transf (AST/SGOT) 28 15-37 U/L Alanine Aminotransferase (ALT/SGPT) 32 12-78 U/L Alkaline Phosphatase 91 45-117 U/L Total Protein 6.2 6.4-8.2 gm/dl Albumin 2.8 3.4-5.0 gm/dl Globulin 3.4 2.5-4.0 gm/dl Albumin/Globulin Ratio 0.8 0.9-2 Test 03/07/17 16:20 Range/Units Bedside Glucose 165 70-99 mg/dl
[2017-03-08 03:14] VITALS: BP 122/67; PULSE 60; TEMP 36.6; O2SAT 85
[2017-03-08 03:15] VITALS: O2SAT 93
[2017-03-08 05:44] LABS: PROTHROMBIN TIME (PATIENT) 43.7 SECONDS (9.0-12.0)
[2017-03-08 05:46] LABS: INR 3.9 (0.9-1.1)
[2017-03-08 05:54] LABS: BUN/CREATININE RATIO 17.1 (10-20); CREATININE 1.1 mg/dl (0.60-1.40); POTASSIUM 4.4 mmol/L (3.5-5.1)
[2017-03-08 05:57] LABS: ALB/GLOB RATIO 0.9 (0.9-2)
[2017-03-08 07:53] VITALS: BP 132/61; PULSE 61; TEMP 36.8; O2SAT 95
[2017-03-08 08:00] VITALS: O2SAT 92
[2017-03-08] MEDS: AMIODARONE 200 MG TAB PO SCH (08:02)
[2017-03-08] MEDS: FoLIC ACID TAB 400 MCG TAB PO SCH (08:02)
[2017-03-08] MEDS: ATORVASTATIN 40 MG TAB PO SCH (08:02)
[2017-03-08] MEDS: ASPIRIN 81 MG ECTAB PO SCH (08:02)
[2017-03-08] MEDS: MAGNESIUM CHLORIDE 64MG DELAYED REL TAB PO SCH (08:03)
[2017-03-08] MEDS: ISOSORBIDE MONONITRATE 60 MG TABCR PO SCH (08:03)
[2017-03-08] MEDS: METOPROLOL SUCC 50MG EXT REL TAB PO SCH (08:03)
[2017-03-08] MEDS: CHOLECALCIFEROL 1000 INTER.UNIT TAB PO SCH (08:03)
[2017-03-08] MEDS: INSULIN ASPART 100 UNITS/ML 3 ML PEN SC SCH ×2 (08:08→12:02)
[2017-03-08] MEDS: INSULIN GLARGINE SOLOSTAR 100 UNITS/ML 3 ML PEN SC SCH (08:09)
[2017-03-08] MEDS ORDERED: FUROSEMIDE 20 MG TAB PO SCH (09:00)
[2017-03-08 11:32] VITALS: BP 107/61; PULSE 51; TEMP 36.9; O2SAT 96
--- NOTE | 2017-03-08 12:06 | Progress Note ---
Internal Med Progress Note Date of Service: Mar 08, 2017. Provider Documentation: SUBJECTIVE: patient seen and examined today at bedside. patient is comfortable and denies symptoms of chest pain or shortness of breath. OBJECTIVE: Exam: General Appearance: no apparent distress Head: normocephalic, atraumatic Eyes: normal inspection ENT: normal ENT inspection, hearing grossly normal, pharynx normal Neck: supple, no JVD, trachea midline Respiratory/Chest: lungs clear, normal breath sounds, no respiratory distress, no accessory muscle use Cardiovascular: heart rate around 60 beats per minute, regular rhythm Abdomen/GI: normal bowel sounds, non tender, soft Back: normal inspection Extremities: normal inspection, no pedal edema Neurologic/Psych: no motor/sensory deficits, alert, normal mood/affect, oriented x 3 ASSESSMENT & PLAN: 77 yo M with h/o ICD for chronic systolic heart failure with recent appropriate firings for electrolyte abnormalities in recent weeks presents with hyponatremia and hyperkalemia 1. Hyperkalemia - avoid RICK inhibitors or other potassium sparing agents, resolving after Kayexalate, insulin with dextrose, and neb treatments 2. Hypovolemic hypotonic hyponatremia - likely due to history of low salt diet and on diuretics at home. Lasix has been held while inpatient. Patient's serum sodium has improved from 122 on presentation to 133 while on IV fluids. IV fluids now stopped. Patient to be discharged home on reduced lasix. Prior at home he was taking 40 mg once a day and alternating to 20 mg once on the following day. Will discharge on Lasix 20 mg daily for now. 3. chronic systolic heart failure with ICD - stable, continue Lasix in lowered doses 4. DMII-recently taken off Metformin with request from patient and his to stay off it and use insulin instead. However, PCP opted to increase glipizide from 5mg daily to 5mg BID recently. Sugar is at goal. Cont Lantus/ISS with carb coverage while in the hospital. Can resume prior diabetes medications on discharge 5. CAD-cont medical management with Toprol XL, Lipitor, ASA 81 6. Atrial fibrillation-on coumadin-held as above. Recently started on amiodarone one month ago and doing well overall with this medication. Cont Toprol (recently increased after vtach episode). 7. Supratherapeutic INR 5.1, 4.7, 3.9. Continuing holding warfarin today on discharge. Patient has been taking coumadin 5 mg daily. Will advise to take 2.5 mg of warfarin starting on 03/09/17 and follow up with anticoagulation clinic for dosing re-adjustment 8. Anemia-chronic stable since prior discharge, likely multifactorial including 2/2 recent hospitalization with frequent phlebotomy and anemia of chronic inflammation. Cont to monitor. No active bleeding or bruising per patient report. DISPOSITION discharge to home follow up with primary care doctor 03/09/2017 10:40 AM Krystian Ellis DO General Internal Medicine [facility] follow up with anticoagulation clinic 03/09/2017 12:00 PM Coag Clinic [facility], [facility] Vital Signs: Date Time Temp Pulse Resp B/P (MAP) Pulse Ox O2 Delivery O2 Flow Rate FiO2 03/08/17 11:32 36.9 51 20 107/61 (76) 96 Room Air 03/08/17 08:00 92 Room Air 03/08/17 07:53 36.8 61 20 132/61 (84) 95 Nasal Cannula 1.0 03/08/17 04:00 Room Air 03/08/17 03:15 93 Nasal Cannula 1.0 03/08/17 03:14 36.6 60 18 122/67 (85) 85 Room Air 03/07/17 23:59 Room Air 03/07/17 23:27 36.5 60 20 125/57 (79) 97 Nasal Cannula 1.0 03/07/17 20:00 Room Air 03/07/17 18:54 36.4 60 20 120/60 (80) 98 Nasal Cannula 1.0 03/07/17 16:00 Room Air 03/07/17 15:13 36.9 56 20 121/67 (85) 98 Nasal Cannula 1.0 Lab Results: Results Past 24 Hours Test 03/07/17 15:33 03/07/17 16:20 03/07/17 20:25 03/08/17 05:18 Range/Units Sodium Level 127 133 136-145 mmol/L Potassium Level 4.7 4.4 3.5-5.1 mmol/L Chloride Level 95 100 98-107 mmol/L Carbon Dioxide Level 24 26 21-32 mmol/L Anion Gap 8.0 7.0 3-11 mmol/L Blood Urea Nitrogen 21 19 7-18 mg/dl Creatinine 1.30 1.10 0.60-1.40 mg/dl Est Creatinine Clear Calc Drug Dose 57.0 67.3 ml/min Estimated GFR () 61.9 75.7 Estimated GFR (Non- 53.4 65.3 BUN/Creatinine Ratio 16.4 17.1 10-20 Random Glucose 180 131 70-99 mg/dl Calcium Level 8.5 8.0 8.5-10.1 mg/dl Total Bilirubin 0.7 0.8 0.2-1 mg/dl Aspartate Amino Transf (AST/SGOT) 28 17 15-37 U/L Alanine Aminotransferase (ALT/SGPT) 32 29 12-78 U/L Alkaline Phosphatase 91 87 45-117 U/L Total Protein 6.2 6.0 6.4-8.2 gm/dl Albumin 2.8 2.8 3.4-5.0 gm/dl Globulin 3.4 3.2 2.5-4.0 gm/dl Albumin/Globulin Ratio 0.8 0.9 0.9-2 Bedside Glucose 165 252 70-99 mg/dl Prothrombin Time 43.7 9.0-12.0 SECONDS Prothromb Time International Ratio 3.9 0.9-1.1 Test 03/08/17 06:45 03/08/17 11:30 Range/Units Bedside Glucose 120 208 70-99 mg/dl
[2017-03-08] MEDS ORDERED: WARF5TAB7 PO (12:17)
[2017-03-08] MEDS ORDERED: FRS/40 PO (12:17)
--- NOTE | 2017-03-08 12:23 | Discharge Instructions ---
Discharge Instructions Date of Service Mar 08, 2017. Admission Reason for Admission: Hyponatremia Discharge Discharge Diagnosis / Problem: hypokalemia, hyponatremia, supratherapeutic INR on coumadin Discharge Goals Goal(s): Improve disease control Activity Recommendations Activity Limitations: per Instructions/Follow-up section Lifting Limitations: until after follow-up appointment Exercise/Sports Limitations: until after follow-up appointment Shower/Bathe: no limitations Driving or Machine Use: no driving . Instructions / Follow-Up Instructions / Follow-Up 77 yo M with h/o ICD for chronic systolic heart failure with recent appropriate firings for electrolyte abnormalities in recent weeks presents with hyponatremia and hyperkalemia 1. Hyperkalemia - avoid RICK inhibitors or other potassium sparing agents, resolving after Kayexalate, insulin with dextrose, and neb treatments 2. Hypovolemic hypotonic hyponatremia - likely due to history of low salt diet and on diuretics at home. Lasix has been held while inpatient. Patient's serum sodium has improved from 122 on presentation to 133 while on IV fluids. IV fluids now stopped. Patient to be discharged home on reduced lasix. Prior at home he was taking 40 mg once a day and alternating to 20 mg once on the following day. Will discharge on Lasix 20 mg daily for now. 3. chronic systolic heart failure with ICD - stable, continue Lasix in lowered doses 4. DMII-recently taken off Metformin with request from patient and his to stay off it and use insulin instead. However, PCP opted to increase glipizide from 5mg daily to 5mg BID recently. Sugar is at goal. Cont Lantus/ISS with carb coverage while in the hospital. Can resume prior diabetes medications on discharge 5. CAD-cont medical management with Toprol XL, Lipitor, ASA 81 6. Atrial fibrillation-on coumadin-held as above. Recently started on amiodarone one month ago and doing well overall with this medication. Cont Toprol (recently increased after vtach episode). 7. Supratherapeutic INR 5.1, 4.7, 3.9. Continuing holding warfarin today on discharge. Patient has been taking coumadin 5 mg daily. Will advise to take 2.5 mg of warfarin starting on 03/09/17 and follow up with anticoagulation clinic for dosing re-adjustment 8. Anemia-chronic stable since prior discharge, likely multifactorial including 2/2 recent hospitalization with frequent phlebotomy and anemia of chronic inflammation. Cont to monitor. No active bleeding or bruising per patient report. DISPOSITION discharge to home follow up with primary care doctor 03/09/2017 10:40 AM Krystian Ellis DO General Internal Medicine [facility] follow up with anticoagulation clinic 03/09/2017 12:00 PM Coag Clinic [facility], [facility] Current Hospital Diet Patient's current hospital diet: Low Sodium Diet (2gm Na), Diabetes Type 2 Diet , Low Potassium Diet (2g K) Discharge Diet Recommended Diet: AHA Diet (Heart Healthy) Pending Studies Studies pending at discharge: no Laboratory Results 03/07/17 03:36 03/08/17 05:18 Test 03/06/17 17:10 03/06/17 23:15 03/07/17 01:14 03/07/17 03:36 Immature Granulocyte % (Auto) 0.3 % White Blood Count 7.38 K/uL (4.8-10.8) Red Blood Count 3.95 M/uL (4.7-6.1) 3.54 M/uL (4.7-6.1) Hemoglobin 11.3 g/dL (14.0-18.0) Hematocrit 34.4 % (42-52) Mean Corpuscular Volume 87.1 fL (80-100) 86.4 fL (80-100) Mean Corpuscular Hemoglobin 28.6 pg (25-34) 29.1 pg (25-34) Mean Corpuscular Hemoglobin Concent 32.8 g/dl (32-36) 33.7 g/dl (32-36) Platelet Count 161 K/uL (130-400) Mean Platelet Volume 10.4 fL (7.4-10.4) 9.5 fL (7.4-10.4) Neutrophils (%) (Auto) 81.5 % Lymphocytes (%) (Auto) 5.8 % Monocytes (%) (Auto) 9.2 % Eosinophils (%) (Auto) 2.8 % Basophils (%) (Auto) 0.4 % Neutrophils # (Auto) 6.01 K/uL (1.4-6.5) Lymphocytes # (Auto) 0.43 K/uL (1.2-3.4) Monocytes # (Auto) 0.68 K/uL (0.11-0.59) Eosinophils # (Auto) 0.21 K/uL (0-0.5) Basophils # (Auto) 0.03 K/uL (0-0.2) Immature Granulocyte # (Auto) 0.02 K/uL (0.00-0.02) Direct Bilirubin 0.3 mg/dl (0-0.2) Troponin I 0.021 ng/ml (0-0.045) Pro-B-Type Natriuretic Peptide 92435 pg/ml (0-900) Lipase 140 U/L (73-393) Osmolality 270 mOsm/kg (280-300) Magnesium Level 2.0 mg/dl (1.8-2.4) Urine Color YELLOW Urine Appearance CLEAR (CLEAR) Urine pH 5.5 (4.5-7.5) Urine Specific [place] 1.016 (1.000-1.030) Urine Protein TRACE (NEG) Urine Glucose (UA) NEG (NEG) Urine Ketones NEG (NEG) Urine Occult Blood NEG (NEG) Urine Nitrite NEG (NEG) Urine Bilirubin NEG (NEG) Urine Urobilinogen NEG (NEG) Urine Leukocyte Esterase NEG (NEG) Urine WBC (Auto) 0 /hpf (0-5) Urine RBC (Auto) 0-4 /hpf (0-4) Urine Hyaline Casts (Auto) 0 /lpf (0-5) Urine Epithelial Cells (Auto) 0-5 /lpf (0-5) Urine Bacteria (Auto) NEG (NEG) Urine Osmolality 266 mOms/kg (500-800) Urine Random Creatinine 43.0 mg/dl Urine Random Sodium 24 mEq/L Urine Random Urea Nitrogen 465 mg/dl RDW Standard Deviation 49.3 fL (36.4-46.3) RDW Coefficient of Variation 15.2 % (11.5-14.5) Estimated Average Glucose 157 mg/dl Hemoglobin A1c 7.1 % (4.5-5.6) Test 03/08/17 05:18 03/08/17 11:30 Prothrombin Time 43.7 SECONDS (9.0-12.0) Prothromb Time International Ratio 3.9 (0.9-1.1) Anion Gap 7.0 mmol/L (3-11) Est Creatinine Clear Calc Drug Dose 67.3 ml/min Estimated GFR () 75.7 Estimated GFR (Non- 65.3 BUN/Creatinine Ratio 17.1 (10-20) Calcium Level 8.0 mg/dl (8.5-10.1) Total Bilirubin 0.8 mg/dl (0.2-1) Aspartate Amino Transf (AST/SGOT) 17 U/L (15-37) Alanine Aminotransferase (ALT/SGPT) 29 U/L (12-78) Alkaline Phosphatase 87 U/L (45-117) Total Protein 6.0 gm/dl (6.4-8.2) Albumin 2.8 gm/dl (3.4-5.0) Globulin 3.2 gm/dl (2.5-4.0) Albumin/Globulin Ratio 0.9 (0.9-2) Bedside Glucose 208 mg/dl (70-99) Hemoglobin A1c Test 03/07/17 03:36 Range/Units Estimated Average Glucose 157 mg/dl Hemoglobin A1c 7.1 H 4.5-5.6 % Medical Emergencies . Who to Call and When: Medical Emergencies: If at any time you feel your situation is an emergency, please call 911 immediately. . Non-Emergent Contact Non-Emergency issues call your: Primary Care Provider . . "Provider Documentation" section prepared by David Swenson. . VTE Core Measure Inpt VTE Proph given/why not?: Warfarin (Coumadin) (couamdin held as inpatient because of elevated INR)
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
[2017-03-08 12:28] VITALS: BP 107/61; PULSE 51; TEMP 36.9; O2SAT 96
== END 2017-03-08 13:13 | disposition home or self-care (01) | DRG 641 ==
LOC: C.EDB 16:33 → C.2T 19:52 → ENRESERV 20:06
PROVIDERS: ADMIT Hospitalist; ATTEND Hospitalist
DX: E87.1 Hypo-osmolality and hyponatremia (principal); I50.22 Chronic systolic (congestive) heart failure; I11.0 Hypertensive heart disease with heart failure; Z95.810 Presence of automatic (implantable) cardiac defibrillator; T46.4X5A Adverse effect of angiotensin-converting-enzyme inhibitors, initial encounter; E11.9 Type 2 diabetes mellitus without complications; I25.10 Atherosclerotic heart disease of native coronary artery without angina pectoris; E78.5 Hyperlipidemia, unspecified; E87.5 Hyperkalemia; Z79.01 Long term (current) use of anticoagulants; D64.9 Anemia, unspecified; Z86.718 Personal history of other venous thrombosis and embolism; Z95.1 Presence of aortocoronary bypass graft; Z87.891 Personal history of nicotine dependence; Y92.009 Unspecified place in unspecified non-institutional (private) residence as the place of occurrence of the external cause

== ENCOUNTER 2017-04-27 12:43 | Inpatient (IN) | payer OTHER ==
[~2017-04-27] VITALS: Ht 180.3 cm; Wt 81.6 kg
[~2017-04-27 12:43] MED LIST changes: +ASCORBIC ACID PO; +FERROUS FUMARATE PO; -FERRTAB18 PO; -LISI-789 PO; -METF-383 PO; -METO-217 PO; +METO50TA7 PO; +VTMD1000 PO; +WARF5TAB7 PO; -WARF5TAB90 PO
[2017-04-27] MEDS ORDERED: FERRTAB18 PO (15:10)
[2017-04-27 15:24] LABS: BUN/CREATININE RATIO 22.4 (10-20); CALCIUM 8.3 mg/dl (8.5-10.1); CREATININE 1.54 mg/dl (0.60-1.40)
[2017-04-27] MEDS ORDERED: SODIUM CHLORIDE 0.9% 1000ML 1,000 ML IV STA (15:27)
[2017-04-27 15:36] LABS: MANUAL MICROSCOPIC REQUIRED? YES; URINE APPEARANCE CLEAR (CLEAR); URINE BILIRUBIN NEG (NEG); URINE COLOR YELLOW; URINE NITRITE NEG (NEG); URINE PH 5.5 (4.5-7.5); URINE SPECIFIC GRAVITY <= 1.005 (1.000-1.030); UROBILINOGEN NEG (NEG)
[2017-04-27 15:39] LABS: REVIEW REQ? NO
[2017-04-27 15:54] LABS: URINE BACTERIA NEG (NEG); URINE RBC 0-4 /hpf (0-4); ZZUR CULT IF INDIC CLEAN CATCH NO
[2017-04-27] MEDS ORDERED: ACETAMINOPHEN 325 MG TAB PO PRN (17:15)
[2017-04-27] MEDS ORDERED: GLUCOSE 40% GEL 15 GM TUBE PO PRN (17:15)
[2017-04-27] MEDS ORDERED: GLUCAGON FOR INJ 1 MG VIAL SQ PRN (17:15)
[2017-04-27] MEDS ORDERED: SODIUM CHLORIDE 0.9% 1000ML 1,000 ML IV SCH (17:15)
[2017-04-27] MEDS ORDERED: GLUCOSE 10 TABS/TUBE PO PRN (17:15)
[2017-04-27] MEDS ORDERED: DEXTROSE 50% 50 ML SYR IV PRN (17:15)
[2017-04-27] MEDS ORDERED: ONDANSETRON INJ 2 MG/ML 2 ML VIAL IV PRN (17:15)
[2017-04-27] MEDS ORDERED: FURO40TA3 PO (17:23)
[2017-04-27 17:24] LABS: HEMATOCRIT 31.7 % (42-52); MEAN CELL VOLUME 87.6 fL (80-100); MEAN CORPUSCULAR HEMOGLOBIN 29.3 pg (25-34); MEAN CORPUSCULAR HGB CONC 33.4 g/dl (32-36); MEAN PLATELET VOLUME 10.8 fL (7.4-10.4); PLATELET COUNT 152 K/uL (130-400); RED BLOOD COUNT 3.62 M/uL (4.7-6.1); WHITE BLOOD COUNT 7.07 K/uL (4.8-10.8)
[2017-04-27 17:28] LABS: INR 2.2 (0.9-1.1); PROTHROMBIN TIME (PATIENT) 24.8 SECONDS (9.0-12.0)
[2017-04-27] MEDS ORDERED: METO50TA7 PO (17:28)
[2017-04-27] MEDS ORDERED: NITROGLYCERIN 0.4 MG SL PER TAB CHARGE SL PRN (17:30)
--- NOTE | 2017-04-27 17:46 | DIAGNOSTIC IMAGING REPORT ---
CHEST 2 VIEWS ROUTINE CLINICAL HISTORY: Lower extremity edema COMPARISON STUDY: March 06, 2017 FINDINGS: The heart is enlarged. There are postsurgical changes of a midline sternotomy. There is a left subclavian pacer/defibrillator present. There is an increasing right pleural effusion with associated right mid and lower lung zone atelectasis/consolidation. There is a trace left pleural effusion. There is mild central vascular prominence without evidence of overt failure. IMPRESSION: Increasing right pleural effusion with associated right lower lobe atelectasis/consolidation Electronically signed by: Rafi Lambert M.D. 04/27/2017 5:45 PM Dictated Date/Time: 04/27/2017 5:42 PM
[2017-04-27 17:48] LABS: CKMB/CK RATIO 3.5 (0-3.0); MAGNESIUM 2.1 mg/dl (1.8-2.4)
[2017-04-27 18:38] VITALS: BP 99/51; PULSE 60; TEMP 36.4; O2SAT 98; Ht 180.3 cm; Wt 81.6 kg
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
[2017-04-27 20:52] VITALS: BP 120/72; PULSE 60
[2017-04-27] MEDS: WARFARIN SOD 2.5 MG TAB PO SCH (20:57)
[2017-04-27] MEDS: AMIODARONE 200 MG TAB PO SCH (20:57)
[2017-04-27] MEDS: METOPROLOL SUCC 25MG EXT REL TAB PO SCH (20:58)
[2017-04-27] MEDS: MAGNESIUM CHLORIDE 64MG DELAYED REL TAB PO SCH (20:58)
[2017-04-27] MEDS: INSULIN ASPART 100 UNITS/ML 3 ML PEN SC SCH (21:03)
--- NOTE | 2017-04-27 21:03 | EMERGENCY ROOM VISIT NOTE ---
History Report prepared by Stephen: Nandini Carranza Under the Supervision of: Dr. Wali Oates M.D. First contact with patient: 14:15 Chief Complaint: REFERRED BY DOCTOR Stated Complaint: REF'D BY DOC FOR DIRECT ADMIT THROUGH ER History of Present Illness The patient is a 77 year old male who presents to the Emergency Room with complaints of an episode of abnormal labs occurring this morning. The patient had blood work done as a recheck at [facility] and was referred to the ED. The patient's labs showed high potassium and low sodium. The patient notes feeling short of breath when walking long distances which he reports is baseline for him. The patient had an episode like this on March 06 and was seen in the ED then. The patient states he had an episode of where he "blacked out" and his pacemaker defibrillator shocked him. 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 The patient stopped taking Lasix 3 days ago. The patient has a history of a bypass and stents put in place. Pt denies LOC, headache, fevers, chills, diaphoresis, visual changes, neck pain, chest pain, breathing difficulties, nausea, vomiting, abdominal pain, back pain, melena, hematochezia, urinary symptoms, numbness, no focal weakness, lymphadenopathy, rash, or other complaints. Source of History: patient Onset: this morning Position: other (global ) Quality: other (abnormal labs ) Timing: other (episode) Associated Symptoms: + SOB Review of Systems See HPI for pertinent positives and negatives. A total of ten systems were reviewed and were otherwise negative. Past Medical & Surgical Medical Problems: (1) Coronary artery disease (2) Diabetes mellitus, type II (3) Diverticula of colon (4) Dyslipidemia (5) History of adenomatous polyp of colon (6) History of DVT (deep vein thrombosis) (7) History of pneumothorax (8) Hypertension (9) Systolic CHF (10) V tach Surgical Problems: (1) H/O parathyroidectomy (2) Status post coronary artery bypass grafting (3) Status post coronary artery stent placement (4) Status post placement of cardiac pacemaker Social History Problems: (1) Ischemic cardiomyopathy Family History Diabetes mellitus FATHER MOTHER Heart disease FATHER MOTHER Social History Smoking Status: Former Smoker Alcohol Use: none Drug Use: none Marital Status: Occupation Status: retired Current/Historical Medications Scheduled Amiodarone HCl (Amiodarone HCl), 200 MG PO BID Aspirin (Aspirin Ec), 81 MG PO DAILY Atorvastatin (Lipitor), 40 MG PO DAILY Cholecalciferol (Vitamin D3), 2,000 INTER.UNIT PO DAILY Folic Acid (Folic Acid), 400 MCG PO DAILY Furosemide (Lasix), 0.5 TAB PO DAILY Glipizide (Glucotrol), 5 MG PO UD Iron-Vitamin C (Vitron-C), 1 TAB PO BID Isosorbide Mononitrate (Imdur Ext Rel), 120 MG PO QAM Magnesium Chloride (Slow-Mag Tab), 2 TAB PO BID Metoprolol Succ (Toprol Xl) (Toprol-Xl), 2 TAB PO DAILY Metoprolol Succ (Toprol Xl) (Toprol-Xl), 1.5 TAB PO PM Nitroglycerin (Nitrostat), 0.4 MG UT PRN Warfarin Sod (Jantoven), 2.5 MG PO QPM Allergies Coded Allergies: Clopidogrel (Verified Allergy, Unknown, RASH,EDEMA, 04/27/17) Physical Exam Vital Signs Date Time Temp Pulse Resp B/P (MAP) Pulse Ox O2 Delivery O2 Flow Rate FiO2 04/27/17 17:13 36.8 62 16 124/76 98 Room Air 04/27/17 15:36 54 04/27/17 15:35 55 16 122/69 96 Room Air 04/27/17 13:03 36.3 50 20 108/56 99 Room Air Physical Exam GENERAL: Awake, alert, well-appearing, in no distress HENT: Normocephalic, atraumatic. Oropharynx unremarkable. EYES: Normal conjunctiva. Sclera non-icteric. NECK: Supple. No nuchal rigidity. FROM. No JVD. RESPIRATORY: Clear to auscultation. CARDIAC: Regular rate, normal rhythm. Extremities warm and well perfused. Pulses equal. ABDOMEN: Soft, non-distended. No tenderness to palpation. No rebound or guarding. No masses. RECTAL: Deferred. MUSCULOSKELETAL: Chest examination reveals no tenderness. The back is symmetrical on inspection without obvious abnormality. There is no CVA tenderness to palpation. No joint edema. LOWER EXTREMITIES: Calves are equal size bilaterally and non-tender. 1+ edema. No discoloration. NEURO: Normal sensorium. No sensory or motor deficits noted. No focal weaknesses noted. SKIN: No rash or jaundice noted. Medical Decision & Procedures Laboratory Results 04/27/17 14:40 04/27/17 14:40 Test 04/27/17 14:40 04/27/17 15:24 04/27/17 17:04 Red Blood Count 3.62 M/uL (4.7-6.1) Mean Corpuscular Volume 87.6 fL (80-100) Mean Corpuscular Hemoglobin 29.3 pg (25-34) Mean Corpuscular Hemoglobin Concent 33.4 g/dl (32-36) RDW Standard Deviation 56.8 fL (36.4-46.3) RDW Coefficient of Variation 17.6 % (11.5-14.5) Mean Platelet Volume 10.8 fL (7.4-10.4) Prothrombin Time 24.8 SECONDS (9.0-12.0) Prothromb Time International Ratio 2.2 (0.9-1.1) Anion Gap 6.0 mmol/L (3-11) Est Creatinine Clear Calc Drug Dose 44.1 ml/min Estimated GFR () 50.4 Estimated GFR (Non- 43.5 BUN/Creatinine Ratio 22.4 (10-20) Osmolality 267 mOsm/kg (280-300) Calcium Level 8.3 mg/dl (8.5-10.1) Magnesium Level 2.1 mg/dl (1.8-2.4) Total Creatine Kinase 80 U/L (39-308) Creatine Kinase MB 2.8 ng/ml (0.5-3.6) Troponin I 0.020 ng/ml (0-0.045) Urine Color YELLOW Urine Appearance CLEAR (CLEAR) Urine pH 5.5 (4.5-7.5) Urine Specific [place] <= 1.005 (1.000-1.030) Urine Protein NEG (NEG) Urine Glucose (UA) NEG (NEG) Urine Ketones NEG (NEG) Urine Occult Blood TRACE (NEG) Urine Nitrite NEG (NEG) Urine Bilirubin NEG (NEG) Urine Urobilinogen NEG (NEG) Urine Leukocyte Esterase NEG (NEG) Urine RBC 0-4 /hpf (0-4) Urine WBC 1-5 /hpf (0-5) Urine Epithelial Cells 0-5 /lpf (0-5) Urine Bacteria NEG (NEG) Urine Osmolality 203 mOms/kg (500-800) Creatine Kinase MB Ratio (0-3.0) Laboratory results reviewed by me Medications Administered Medications (Trade) Dose Ordered Sig/Gustavo Route Start Time Stop Time Status Last Admin Dose Admin Sodium Chloride 1,000 ml @ 125 mls/hr Q8H STAT IV 04/27/17 15:27 04/27/17 18:17 DC 04/27/17 15:27 125 MLS/HR ECG Indication: other (abnormal labs ) Rate (beats per minute): 49 Rhythm: other (paced rhythm) Findings: PVC, T-wave inversion (Inferior and lateral) Comparison ECG Date: 03/06/17 Change: no significant change ED Course 1422: The patient was evaluated in room B8. A complete history and physical exam was performed. 1527: Ordered Sodium Chloride 1000 ml @ 125 mls/hr IV. 1535: Discussed the patient's case with Gila Mak PA-C. The patient will be evaluated for further treatment and disposition. Medical Decision Triage Nursing notes reviewed. The patient's presentation and history were concerning for lab abnormalities. Etiologies such as metabolic, infection, hypo/hyperglycemia, electrolyte abnormalities, cardiac sources, intracerebral event, toxicologic, neurologic, as well as others were entertained. The patient was evaluated. He clinically he was doing well but his laboratory testing as an outpatient was very concerning. The patient had blood work obtained. He had gentle fluid hydration ordered but then this was held. He was found to have significant hyponatremia. Potassium was not dangerous. ECG as above. Given the progressive issues with hyponatremia further evaluation and management in the hospital was deemed appropriate. Consultation was made with internal medicine. The patient was evaluated in the Emergency Room for further management. Blood Pressure Screening Patient's blood pressure: Normal blood pressure Blood pressure disposition: Referred to PCP (to be evaluated by hospitalist) Consults Time Called: 1528 Consulting Physician: Gila Mak PA-C Returned Call: [phone] Discussed the patient's case. The patient will be evaluated for further treatment and disposition. Impression Primary Impression: Hyponatremia Scribe Attestation The scribe's documentation has been prepared under my direction and personally reviewed by me in its entirety. I confirm that the note above accurately reflects all work, treatment, procedures, and medical decision making performed by me. Departure Information Dispostion Being Evaluated By Hospitalist Referrals Krystian Ellis D.O. (PCP) Patient Instructions [facility]
[2017-04-27] MEDS: INSULIN GLARGINE SOLOSTAR 100 UNITS/ML 3 ML PEN SC SCH (21:04)
[2017-04-27 23:30] LABS: BUN/CREATININE RATIO 17.4 (10-20); CALCIUM 8.3 mg/dl (8.5-10.1); CREATININE 1.85 mg/dl (0.60-1.40)
[2017-04-27 23:39] VITALS: BP 123/70; PULSE 60; TEMP 36.3; O2SAT 89
[2017-04-28] VITALS (10 sets, daily range): BP systolic 102–118; BP diastolic 49–65; PULSE 54–80; TEMP 36.4–37.1; O2SAT 90–98
[2017-04-28 07:00] LABS: HEMATOCRIT 32.7 % (42-52); MEAN CELL VOLUME 87.9 fL (80-100); MEAN CORPUSCULAR HEMOGLOBIN 29.3 pg (25-34); MEAN CORPUSCULAR HGB CONC 33.3 g/dl (32-36); MEAN PLATELET VOLUME 10.5 fL (7.4-10.4); PLATELET COUNT 141 K/uL (130-400); RED BLOOD COUNT 3.72 M/uL (4.7-6.1)
[2017-04-28 07:08] LABS: INR 2.4 (0.9-1.1); PROTHROMBIN TIME (PATIENT) 26.6 SECONDS (9.0-12.0)
[2017-04-28 07:34] LABS: BUN/CREATININE RATIO 19.8 (10-20); CALCIUM 8.6 mg/dl (8.5-10.1); CREATININE 1.54 mg/dl (0.60-1.40); POTASSIUM 4.9 mmol/L (3.5-5.1)
[2017-04-28] MEDS: INSULIN ASPART 100 UNITS/ML 3 ML PEN SC SCH ×4 (08:34→20:36)
[2017-04-28] MEDS: INSULIN GLARGINE SOLOSTAR 100 UNITS/ML 3 ML PEN SC SCH ×2 (08:35→20:50)
[2017-04-28] MEDS: FoLIC ACID TAB 400 MCG TAB PO SCH (08:35)
[2017-04-28] MEDS: AMIODARONE 200 MG TAB PO SCH ×2 (08:35→20:45)
[2017-04-28] MEDS: ASPIRIN 81 MG ECTAB PO SCH (08:36)
[2017-04-28] MEDS: MAGNESIUM CHLORIDE 64MG DELAYED REL TAB PO SCH ×2 (08:36→20:45)
[2017-04-28] MEDS: ISOSORBIDE MONONITRATE 60 MG TABCR PO SCH (08:36)
[2017-04-28] MEDS: ATORVASTATIN 40 MG TAB PO SCH (08:36)
[2017-04-28] MEDS: METOPROLOL SUCC 50MG EXT REL TAB PO SCH (08:37)
[2017-04-28] MEDS: CHOLECALCIFEROL 1000 INTER.UNIT TAB PO SCH (08:37)
--- NOTE | 2017-04-28 10:37 | DIAGNOSTIC IMAGING REPORT ---
CHEST ONE VIEW PORTABLE CLINICAL HISTORY: Congestion. COMPARISON STUDY: Chest radiograph April 27, 2017. FINDINGS: A dual lead left subclavian pacemaker/AICD is noted. There are median sternotomy wires. No pneumothorax is present. Cardiomediastinal silhouette is stable. Moderate to large right pleural effusion persists with extensive associated airspace opacity. There is mild left basilar opacity with interstitial thickening. A small left pleural effusion is noted. IMPRESSION: 1. No significant change in a moderate to large right pleural effusion with associated airspace opacity. Radiographic follow up is recommended. Small left pleural effusion. 2. Pulmonary vascular congestion with possible mild pleural edema. Electronically signed by: Kodak Calderón M.D. 04/28/2017 10:35 AM Dictated Date/Time: 04/28/2017 10:34 AM
[2017-04-28 12:28] LABS: BUN/CREATININE RATIO 21.5 (10-20); CALCIUM 8.3 mg/dl (8.5-10.1); CREATININE 1.55 mg/dl (0.60-1.40); POTASSIUM 4.9 mmol/L (3.5-5.1)
--- NOTE | 2017-04-28 15:51 | NEPHROLOGY CONSULTATION ---
DATE OF CONSULTATION: 04/28/2017 REASON FOR CONSULT: Hyponatremia. HISTORY OF PRESENT ILLNESS: The patient is a 77-year-old male with history of ischemic cardiomyopathy as well as multiple cardiac problems who presented to the Emergency Department yesterday after outpatient labs showed hyponatremia. The patient has been having increasing dyspnea on exertion as well as issues with low sodium and high potassium for a while. His Lasix was stopped a few days ago after which he started to get some lower extremity edema as well as weight gain. Sodium was 123. As an outpatient, repeat labs in the Emergency Department showed a sodium of 119. The patient had a similar history of hyponatremia just last month. Since admission, the patient has got some normal saline and with that sodium has gone up to 126, most recently. At this time, the patient does have some evidence of congestive heart failure on the x-ray. The patient denies having any fever, chills, diaphoresis, nausea, vomiting, diarrhea, chest pain, headaches or syncope. The patient was drinking about 64 ounces of liquid per day, which included water, ice tea, and coffee. His most recent outpatient dose of Lasix was 20 mg daily even that was stopped about 4 or 5 days ago. PAST MEDICAL AND SURGICAL HISTORY: Coronary artery disease status post CABG x3 stented in 2011, type 2 diabetes, colonic diverticulosis, dyslipidemia, history of DVT, pneumothorax, hypertension, systolic congestive heart failure, ventricular tachycardia, history of parathyroidectomy, status post CABG, status post stent, status post cardiac pacemaker. FAMILY HISTORY: Positive for diabetes in father and mother as well as heart disease, former smoker. No drugs, no alcohol. , lives with significant other. ALLERGIES: TO PLAVIX. HOME MEDICATION LIST: Reviewed in full detail and is as per the medicine reconciliation list. Of special interest to nephrology, he was on Lasix 20 mg daily. REVIEW OF SYSTEMS: As detailed in HPI. A total of 12 systems reviewed and negative. PHYSICAL EXAMINATION: GENERAL: An elderly white male who does not appear to be in any apparent distress at this time. HEENT: Mucous membrane is moist. NECK: Supple. No jugular venous distention. VITAL SIGNS: Blood pressure 108/65, 93% on room air, temperature 37 degrees Celsius, pulse 69 per minute. HEENT: Mucous membrane is moist. NECK: Supple. Urine output 700 mL. CARDIOVASCULAR: Regular rate and rhythm, heart rate about 60 per minute. ABDOMEN: Soft, nontender. EXTREMITIES: Shows trace edema. NEUROLOGIC: Alert and oriented x3. Normal speech. Moving all 4 extremities. SKIN: Normal color. RESPIRATORY: Chest nontender, no respiratory distress, decreased breath sounds, especially in the right lung. LABORATORY TESTS: Reviewed. Sodium on admission was 119, potassium was 5.0, BUN 35, creatinine 1.54. Most recent lab from 12:00, sodium 126, potassium 4.9, BUN 33, creatinine 1.55, calcium 8.3. Urine osmolality was 203. Urine specific gravity was very low at 1.005. Chest x-ray shows pulmonary vascular congestion with possible mild pleural edema as well as moderate to large right pleural effusion. ASSESSMENT AND PLAN: A 77-year-old male with hyponatremia. The patient has extensive cardiac disease including systolic congestive heart failure. Hyponatremia. This is a case of hypervolemic hyponatremia secondary to congestive heart failure. Systolic congestive heart failure has led to elevated BNP and this is a type of hormone, which makes you lose sodium in urine. The patient is also retaining significant amount of fluid as he is drinking a lot and I do not think he is on adequate Lasix at this time. He has a pleural effusion, which is most likely related with congestive heart failure as well as pulmonary edema. RECOMMENDATION: 1. Lasix 40 mg IV twice daily. 2. Fluid restriction to 1500 mL per day. 3. As an outpatient, he would need a much higher dose of Lasix. I would use probably 40 mg twice daily. Lasix being a loop diuretic, predominantly causes aquaresis meaning loss of free water and should be aggressively used in this patient. With more free water loss, the serum sodium should go up and potassium should go down and overall, should help with the congestive heart failure as well as electrolyte management. Continue to do labs every 6 hours. Thank you very much for the consult. JESUS
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
[2017-04-28 16:20] LABS: BUN/CREATININE RATIO 21.3 (10-20); CALCIUM 8.5 mg/dl (8.5-10.1); CREATININE 1.57 mg/dl (0.60-1.40); POTASSIUM 5.1 mmol/L (3.5-5.1)
[2017-04-28] MEDS: WARFARIN SOD 2.5 MG TAB PO SCH (16:27)
[2017-04-28] MEDS: FUROSEMIDE INJ 40 MG in SYRINGE 0 ML IV SCH (16:31)
--- NOTE | 2017-04-28 18:21 | Progress Note ---
Internal Med Progress Note Date of Service: Apr 28, 2017. Provider Documentation: SUBJECTIVE: feeling somewhat more sob today denies chest pain afebrile eating ok slept ok micturating fine OBJECTIVE: Vital Signs-as noted below Exam: General-alert and oriented. Not in distress ENT-Normal hearing Neck-no neck masses Lungs-CTA b/l no wheezing mild bibasilar crackles present Heart-S1 and S2 heard. Regular rate and rhythm, no murmurs Abdomen-Soft Bowel sounds present no tenderness present no distension Extremities-b/l lower extremity edema present no erythema Neuro-alert and awake moves extremities Lab data as noted below. ASSESSMENT & PLAN: HYPONATREMIA presented with na 119 hx of recurrent hyponatremia thought to be from hypovolemia and intially lasix dose was decreased and recewntly about 4 days ago lasix is stopped placed on gentle fluids NA improved to 125 today am But patinet was getting more sob and also gaining weight with lower extremity so since lasix is stopped fluids are stopped amaris by nephrology and cardiology currently hyponatremia thought to be from hypervolemia and started on iv Lasix 40mg bid will f/u bmp closely. HYPERKALEMIA thought to be from above on iv lasix f/u labs Acute on CHRONIC SYSTOLIC HEART FAILURE As per H and P: 'Pt reports hx PND and weight gain 4lbs after stopping lasix 4 days ago. CXR: increasing R pleural effusion, RLL atelectasis vs consolidation" . Lasix as above will f/u daily weights i/o Pleural effusion moderate to large right pleural effusion from chf f/u chest US ARF f/u labs while on Lasix. A-Fib rate controlled. On Coumadin. INR 2.4 today continue B desmond CAD: asymptomatic on Lipitor Imdur and ASA DM II -A1C 7.1 on 03/07/17 holding po meds started on lantus 5 BID and NovoLog sliding scale per protocol will monitor DVT PROPHYLAXIS on Coumadin Disposition Monitor in tele Vital Signs: Date Time Temp Pulse Resp B/P (MAP) Pulse Ox O2 Delivery O2 Flow Rate FiO2 04/28/17 15:47 36.8 80 16 112/54 (73) 92 Nasal Cannula 2.0 04/28/17 15:41 93 Room Air 04/28/17 13:26 93 Room Air 04/28/17 12:25 37.0 69 16 108/65 (79) 97 04/28/17 12:11 93 Nasal Cannula 2.0 04/28/17 08:18 37.1 62 16 118/53 (74) 93 Nasal Cannula 04/28/17 08:10 93 Nasal Cannula 2.0 04/28/17 04:03 36.7 58 20 114/49 (70) 90 Nasal Cannula 2.0 04/28/17 04:00 Nasal Cannula 2.0 04/28/17 00:00 Nasal Cannula 2.0 04/27/17 23:39 36.3 60 20 123/70 (87) 89 Room Air 04/27/17 20:52 60 120/72 (88) 04/27/17 20:16 Room Air 04/27/17 18:38 36.4 60 16 99/51 98 Room Air Lab Results: Results Past 24 Hours Test 04/27/17 19:17 04/27/17 20:11 04/27/17 22:48 04/28/17 06:31 Range/Units Bedside Glucose 138 176 70-99 mg/dl Sodium Level 123 123 136-145 mmol/L Potassium Level 5.0 4.9 3.5-5.1 mmol/L Chloride Level 93 95 98-107 mmol/L Carbon Dioxide Level 24 23 21-32 mmol/L Anion Gap 5.0 5.0 3-11 mmol/L Blood Urea Nitrogen 32 30 7-18 mg/dl Creatinine 1.85 1.54 0.60-1.40 mg/dl Est Creatinine Clear Calc Drug Dose 36.7 44.1 ml/min Estimated GFR () 40.4 50.4 Estimated GFR (Non- 34.8 43.5 BUN/Creatinine Ratio 17.4 19.8 10-20 Random Glucose 189 137 70-99 mg/dl Calcium Level 8.3 8.6 8.5-10.1 mg/dl White Blood Count 6.20 4.8-10.8 K/uL Red Blood Count 3.72 4.7-6.1 M/uL Hemoglobin 10.9 14.0-18.0 g/dL Hematocrit 32.7 42-52 % Mean Corpuscular Volume 87.9 80-100 fL Mean Corpuscular Hemoglobin 29.3 25-34 pg Mean Corpuscular Hemoglobin Concent 33.3 32-36 g/dl RDW Standard Deviation 56.6 36.4-46.3 fL RDW Coefficient of Variation 17.5 11.5-14.5 % Platelet Count 141 130-400 K/uL Mean Platelet Volume 10.5 7.4-10.4 fL Prothrombin Time 26.6 9.0-12.0 SECONDS Prothromb Time International Ratio 2.4 0.9-1.1 Test 04/28/17 06:38 04/28/17 11:24 04/28/17 11:50 04/28/17 15:43 Range/Units Bedside Glucose 127 160 70-99 mg/dl Sodium Level 126 126 136-145 mmol/L Potassium Level 4.9 5.1 3.5-5.1 mmol/L Chloride Level 95 94 98-107 mmol/L Carbon Dioxide Level 25 22 21-32 mmol/L Anion Gap 6.0 10.0 3-11 mmol/L Blood Urea Nitrogen 33 33 7-18 mg/dl Creatinine 1.55 1.57 0.60-1.40 mg/dl Est Creatinine Clear Calc Drug Dose 43.8 43.3 ml/min Estimated GFR () 50.0 49.2 Estimated GFR (Non- 43.2 42.5 BUN/Creatinine Ratio 21.5 21.3 10-20 Random Glucose 133 119 70-99 mg/dl Calcium Level 8.3 8.5 8.5-10.1 mg/dl Pro-B-Type Natriuretic Peptide 12205 0-900 pg/ml Test 04/28/17 16:30 Range/Units Bedside Glucose 131 70-99 mg/dl
--- NOTE | 2017-04-28 18:43 | DIAGNOSTIC IMAGING REPORT ---
EFFUSION-CHEST/MEDIASTINUM CLINICAL HISTORY: Bilateral pleural effusions. COMPARISON STUDY: Chest radiograph performed earlier today. FINDINGS: Sonography of the right hemithorax demonstrated a large right pleural effusion with estimated volume of 2724 cc. Suitable right rib interspace was marked for possible subsequent thoracentesis. Sonography of the left hemithorax demonstrated a small to moderate left pleural effusion with estimated volume of 559 cc. No suitable rib interspace was identified given underlying lung. IMPRESSION: 1. Large right pleural effusion. A suitable right rib interspace was marked for possible subsequent thoracentesis. 2. Small to moderate left pleural effusion. No left chest wall tom placed given underlying lung. Electronically signed by: Kodak Calderón M.D. 04/28/2017 6:42 PM Dictated Date/Time: 04/28/2017 6:40 PM
[2017-04-28 20:58] LABS: BUN/CREATININE RATIO 21.6 (10-20); CALCIUM 8.5 mg/dl (8.5-10.1); CREATININE 1.74 mg/dl (0.60-1.40); POTASSIUM 4.8 mmol/L (3.5-5.1)
[2017-04-28] MEDS: METOPROLOL SUCC 25MG EXT REL TAB PO SCH (21:11)
[2017-04-29] VITALS (8 sets, daily range): BP systolic 97–119; BP diastolic 45–62; PULSE 45–66; TEMP 36.3–36.5; O2SAT 93–100
[2017-04-29] MEDS: INSULIN ASPART 100 UNITS/ML 3 ML PEN SC SCH ×4 (07:00→20:47)
[2017-04-29 08:30] LABS: BUN/CREATININE RATIO 23.3 (10-20); CALCIUM 8.9 mg/dl (8.5-10.1); CREATININE 1.5 mg/dl (0.60-1.40); POTASSIUM 3.9 mmol/L (3.5-5.1)
[2017-04-29] MEDS: FUROSEMIDE INJ 40 MG in SYRINGE 0 ML IV SCH ×2 (09:06→16:59)
[2017-04-29] MEDS: AMIODARONE 200 MG TAB PO SCH ×2 (09:07→20:46)
[2017-04-29] MEDS: MAGNESIUM CHLORIDE 64MG DELAYED REL TAB PO SCH ×2 (09:07→20:43)
[2017-04-29] MEDS: METOPROLOL SUCC 50MG EXT REL TAB PO SCH (09:07)
[2017-04-29] MEDS: ISOSORBIDE MONONITRATE 60 MG TABCR PO SCH (09:08)
[2017-04-29] MEDS: CHOLECALCIFEROL 1000 INTER.UNIT TAB PO SCH (09:08)
[2017-04-29] MEDS: FoLIC ACID TAB 400 MCG TAB PO SCH (09:08)
[2017-04-29] MEDS: ATORVASTATIN 40 MG TAB PO SCH (09:08)
[2017-04-29] MEDS: ASPIRIN 81 MG ECTAB PO SCH (09:08)
[2017-04-29] MEDS: INSULIN GLARGINE SOLOSTAR 100 UNITS/ML 3 ML PEN SC SCH ×2 (09:10→20:50)
--- NOTE | 2017-04-29 12:42 | Cardiology Follow-Up ---
Subjective General Date of Service: Apr 29, 2017. Chief Complaint: follow up exertional shortness of breath, hyponatremia, hyperkalemia Pt evaluation today including: conversation w/ patient, conversation w/ family , physical exam History of Present Illness The patient is a 77 year old male seen in cardiology follow up. His spouse accompanied him at the bedside. Pt note mild improvement in his shortness of breath. Telemetry reveals stable SR with occasional PVCs. Allergies Coded Allergies: Clopidogrel (Verified Allergy, Unknown, RASH,EDEMA, 04/27/17) Social History Smoking Status: Former Smoker Hx Tobacco Use In Past Year?: No Hx Alcohol Use - Type And Amou: No Hx Substance Use - Type And Am: No Problem List Medical Problems: (1) Chest pain Status: Acute (2) Hyponatremia Status: Acute (3) Pleural effusion Status: Acute (4) Pulmonary edema Status: Acute (5) Supratherapeutic INR Status: Acute (6) Syncope Status: Acute Physical Exam Vital Signs Last Vital Signs Documentation Date Time Temp Pulse Resp B/P (MAP) Pulse Ox O2 Delivery O2 Flow Rate FiO2 04/29/17 12:11 93 Nasal Cannula 3.0 04/29/17 12:02 36.4 60 16 119/62 (81) Physical Exam Constitutional: Level of Distress: NAD ENMT: TMs normal Neck: supple Lungs: Auscultation: pertinent finding (decreased BS at right base) Cardiovascular: Heart Auscultation: RRR, no murmurs Extremities: no edema Neurologic: Gait & Station: pertinent finding (no focal deficits ) Assessment and Plan Assessment and Plan CXR : large R pleural effusion Chest US: large R pleural effusion, estimated pleural fluid volume of 2.7 L Impression: 77-year-old male 1. Acute on chronic systolic heart failure, large R pleural effusion, small left pleural effusion 2. Ischemic cardiomyopathy, LVEF 20-25% 3. History of was felt to be scar mediated sustained ventricular tachycardia with resultant syncope and AICD discharge February, 4. Stage III chronic kidney disease 5. Recurrent hyponatremia hyperkalemia, trending toward improvement with diuretic therapy. Discussion/recommendations: 3 L of urine outpt noted 04/28 on furosemide 40 mg IV BID. Avoiding ACEI / ARB, KCl supplements, aldactone given h/o elevated potassium given recurrent elevated potassium. Continue current diuretic dose. Will discuss US guided thoracentesis with pulmonary tomorrow. Continue coumadin for now, pending input from pulmonary regarding goal INR for thoracentesis. Check INR in am. Laboratory Results Last 24 Hours Test 04/28/17 15:43 04/28/17 16:30 04/28/17 20:12 04/28/17 20:22 Sodium Level 126 mmol/L 129 mmol/L Potassium Level 5.1 mmol/L 4.8 mmol/L Chloride Level 94 mmol/L 95 mmol/L Carbon Dioxide Level 22 mmol/L 24 mmol/L Anion Gap 10.0 mmol/L 10.0 mmol/L Blood Urea Nitrogen 33 mg/dl 38 mg/dl Creatinine 1.57 mg/dl 1.74 mg/dl Est Creatinine Clear Calc Drug Dose 43.3 ml/min 39.0 ml/min Estimated GFR () 49.2 43.5 Estimated GFR (Non- 42.5 37.5 BUN/Creatinine Ratio 21.3 21.6 Random Glucose 119 mg/dl 105 mg/dl Calcium Level 8.5 mg/dl 8.5 mg/dl Pro-B-Type Natriuretic Peptide 38383 pg/ml Bedside Glucose 131 mg/dl 128 mg/dl Test 04/29/17 06:34 04/29/17 07:42 04/29/17 11:34 Bedside Glucose 79 mg/dl 174 mg/dl Sodium Level 130 mmol/L Potassium Level 3.9 mmol/L Chloride Level 96 mmol/L Carbon Dioxide Level 26 mmol/L Anion Gap 8.0 mmol/L Blood Urea Nitrogen 35 mg/dl Creatinine 1.50 mg/dl Est Creatinine Clear Calc Drug Dose 49.1 ml/min Estimated GFR () 52.0 Estimated GFR (Non- 44.9 BUN/Creatinine Ratio 23.3 Random Glucose 131 mg/dl Calcium Level 8.9 mg/dl
--- NOTE | 2017-04-29 14:52 | NEPHROLOGY PROGRESS NOTE ---
DATE: 04/29/2017 SUBJECTIVE: Overnight, the patient feels better. He is less short of breath. He got Lasix 40 mg IV yesterday and he did make 3 liters of urine. Sodium is steadily going up and is now up to 130. Urine output 3050 mL. PHYSICAL EXAMINATION: VITAL SIGNS: Blood pressure 119/62, 93% on 3-liter nasal cannula, pulse rate 60 per minute, temperature 36.4. HEENT: Mucous membrane is moist. NECK: Supple. No jugular venous distention. CHEST: Bilateral decreased breath sounds in the right lung with occasional crackles. CARDIOVASCULAR: S1 and S2, regular. EXTREMITIES: No edema. IMAGING STUDIES: Chest x-ray shows large right pleural effusion. ASSESSMENT AND PLAN: A 77-year-old male with [id number] systolic failure, large right pleural effusion as well as small left pleural effusion, ischemic cardiomyopathy with an ejection fraction of 20%-25%, recurrent hyponatremia and hyperkalemia, now getting better with more aggressive diuresis therapy. RECOMMENDATION: 1. Continue Lasix 40 mg IV twice daily as an inpatient. 2. He will need substantially higher dose of Lasix as an outpatient. 3. Continue low salt and fluid restriction. I would recommend fluid restriction of about 1200 mL per day. 4. We can discontinue the frequent labs now and make it once daily. MTDD
[2017-04-29] MEDS: WARFARIN SOD 2.5 MG TAB PO SCH (16:59)
--- NOTE | 2017-04-29 17:58 | Progress Note ---
Internal Med Progress Note Date of Service: Apr 29, 2017. Provider Documentation: SUBJECTIVE: sob is better denies chest pain eating great resting comfortably denies any complaints OBJECTIVE: Vital Signs-as noted below Exam: General-alert and oriented. Not in distress ENT-Normal hearing Neck-no neck masses Lungs-CTA b/l no wheezing mild bibasilar crackles present Heart-S1 and S2 heard. Regular rate and rhythm, no murmurs Abdomen-Soft Bowel sounds present no tenderness present no distension Extremities-b/l lower extremity edema present no erythema Neuro-alert and awake moves extremities Lab data as noted below. ASSESSMENT & PLAN: HYPONATREMIA presented with na 119 hx of recurrent hyponatremia thought to be from hypovolemia and intially lasix dose was decreased and recewntly about 4 days ago lasix is stopped placed on gentle fluids NA improved to 125 today am But patinet was getting more sob and also gaining weight with lower extremity so since lasix is stopped fluids are stopped amaris by nephrology and cardiology currently hyponatremia thought to be from hypervolemia and started on iv Lasix 40mg bid na 130 today to continue current diuretics and fluid restriction of 1200ml/day. f/u labs in am HYPERKALEMIA thought to be from above on iv lasix resolved f/u labs Acute on CHRONIC SYSTOLIC HEART FAILURE As per H and P: 'Pt reports hx PND and weight gain 4lbs after stopping lasix 4 days ago. CXR: increasing R pleural effusion, RLL atelectasis vs consolidation" . Lasix as above will f/u daily weights i/o Pleural effusion moderate to large right pleural effusion from chf chest US shows about 2lts on right side and about 500ml on left side will consult pulmonary in am for possible thoracocentesis ARF f/u labs while on Lasix. cr 1.5 today A-Fib rate controlled. On Coumadin. INR 2.4 continue B desmond CAD: asymptomatic on Lipitor Imdur and ASA DM II -A1C 7.1 on 03/07/17 holding po meds started on lantus 5 BID 79/131/174/248 and NovoLog sliding scale per protocol will monitor DVT PROPHYLAXIS on Coumadin Disposition Monitor in tele Vital Signs: Date Time Temp Pulse Resp B/P (MAP) Pulse Ox O2 Delivery O2 Flow Rate FiO2 04/29/17 16:15 97 Nasal Cannula 3.0 04/29/17 15:19 36.4 60 16 100/45 (63) 97 Nasal Cannula 3.0 04/29/17 12:11 93 Nasal Cannula 3.0 04/29/17 12:02 36.4 60 16 119/62 (81) 93 Nasal Cannula 04/29/17 08:00 Nasal Cannula 3.0 04/29/17 07:54 36.5 66 16 112/48 (69) 04/29/17 04:23 36.4 59 22 97/51 (66) 93 Nasal Cannula 3.0 04/29/17 04:00 Nasal Cannula 3.0 04/28/17 23:59 Nasal Cannula 2.0 04/28/17 23:46 36.8 54 15 102/53 (69) 91 Nasal Cannula 2.0 04/28/17 20:00 Nasal Cannula 2.0 04/28/17 19:58 36.4 55 107/57 (74) 98 Nasal Cannula 2.0 Lab Results: Results Past 24 Hours Test 04/28/17 20:12 04/28/17 20:22 04/29/17 06:34 04/29/17 07:42 Range/Units Sodium Level 129 130 136-145 mmol/L Potassium Level 4.8 3.9 3.5-5.1 mmol/L Chloride Level 95 96 98-107 mmol/L Carbon Dioxide Level 24 26 21-32 mmol/L Anion Gap 10.0 8.0 3-11 mmol/L Blood Urea Nitrogen 38 35 7-18 mg/dl Creatinine 1.74 1.50 0.60-1.40 mg/dl Est Creatinine Clear Calc Drug Dose 39.0 49.1 ml/min Estimated GFR () 43.5 52.0 Estimated GFR (Non- 37.5 44.9 BUN/Creatinine Ratio 21.6 23.3 10-20 Random Glucose 105 131 70-99 mg/dl Calcium Level 8.5 8.9 8.5-10.1 mg/dl Bedside Glucose 128 79 70-99 mg/dl Test 04/29/17 11:34 04/29/17 16:25 Range/Units Bedside Glucose 174 248 70-99 mg/dl
[2017-04-29] MEDS: METOPROLOL SUCC 25MG EXT REL TAB PO SCH (20:45)
[2017-04-30] VITALS (7 sets, daily range): BP systolic 100–125; BP diastolic 49–56; PULSE 57–60; TEMP 36.4–36.9; O2SAT 91–99
[2017-04-30 06:19] LABS: BASO % 0.6 %; BASO ABS # 0.05 K/uL (0-0.2); COMPLETE YES; EOS % 2.2 %; HEMATOCRIT 30.8 % (42-52); IG% 0.4 %; LYMPH % 8.3 %; LYMPH ABS # 0.64 K/uL (1.2-3.4); MEAN CELL VOLUME 89.3 fL (80-100); MEAN CORPUSCULAR HEMOGLOBIN 28.7 pg (25-34); MEAN CORPUSCULAR HGB CONC 32.1 g/dl (32-36); MEAN PLATELET VOLUME 9.3 fL (7.4-10.4); MONO % 11.5 %; PLATELET COUNT 135 K/uL (130-400); RED BLOOD COUNT 3.45 M/uL (4.7-6.1); WHITE BLOOD COUNT 7.72 K/uL (4.8-10.8)
[2017-04-30 06:32] LABS: INR 3.1 (0.9-1.1); PROTHROMBIN TIME (PATIENT) 35.3 SECONDS (9.0-12.0)
[2017-04-30 06:57] LABS: BUN/CREATININE RATIO 22.2 (10-20); CALCIUM 8.8 mg/dl (8.5-10.1); CREATININE 1.56 mg/dl (0.60-1.40); MAGNESIUM 1.9 mg/dl (1.8-2.4); POTASSIUM 3.7 mmol/L (3.5-5.1)
[2017-04-30] MEDS: MAGNESIUM CHLORIDE 64MG DELAYED REL TAB PO SCH ×2 (09:23→21:28)
[2017-04-30] MEDS: ISOSORBIDE MONONITRATE 60 MG TABCR PO SCH (09:23)
[2017-04-30] MEDS: FUROSEMIDE INJ 40 MG in SYRINGE 0 ML IV SCH ×2 (09:23→17:14)
[2017-04-30] MEDS: FoLIC ACID TAB 400 MCG TAB PO SCH (09:23)
[2017-04-30] MEDS: ATORVASTATIN 40 MG TAB PO SCH (09:23)
[2017-04-30] MEDS: CHOLECALCIFEROL 1000 INTER.UNIT TAB PO SCH (09:23)
[2017-04-30] MEDS: METOPROLOL SUCC 50MG EXT REL TAB PO SCH (09:24)
[2017-04-30] MEDS: AMIODARONE 200 MG TAB PO SCH ×2 (09:24→21:27)
[2017-04-30] MEDS: ASPIRIN 81 MG ECTAB PO SCH (09:24)
[2017-04-30] MEDS: INSULIN GLARGINE SOLOSTAR 100 UNITS/ML 3 ML PEN SC SCH ×2 (09:26→21:26)
[2017-04-30] MEDS: INSULIN ASPART 100 UNITS/ML 3 ML PEN SC SCH ×4 (09:26→21:26)
--- NOTE | 2017-04-30 09:26 | Procedure Note ---
Procedure Note Date of Service Apr 30, 2017. Procedure Note Procedures: right sided Thoracentesis Consent: obtained via the patient and placed into the chart Pre-Procedural Dx: CHF induced pleural effusion Post-Procedural Dx: CHF induced pleural effusion Analgesia: 8cc of 1% Liquid Lidocaine Procedure: The patient was placed in an upright position and thoracic US was used to select a spot for the procedure. A spot along the posterior axillary line was marked in the 7th intercostal space. The patient was then draped and prepped in a sterile fashion. A modified Seldinger technique was then used for catheter placement. Flowing this approximately 1500cc of dark yellow pleural fluid was removed. The patient was then cleaned and placed at a 60 degree angle in the bed were the US was used to evaluate for possible pneumothorax. The US showed good lung sliding and starry night sign. EBL: none Complications: none
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
[2017-04-30 10:38] LABS: PLEURAL FLUID TOTAL PROTEIN 3.6 g/dl
[2017-04-30 11:08] LABS: PLEURAL FLUID APPEARANCE TURBID; PLEURAL FLUID COLOR AMBER; PLEURAL FLUID MONONUC RELAT 87.1 %; PLEURAL FLUID POLYNUC 12.9 %; PLEURAL FLUID SOURCE RIGHT LUNG; PLEURAL FLUID WBC (A) 88 /uL
--- NOTE | 2017-04-30 15:14 | Cardiology Follow-Up ---
Subjective General Date of Service: Apr 30, 2017. Chief Complaint: follow up exertional shortness of breath, hyponatremia, hyperkalemia Pt evaluation today including: conversation w/ patient, physical exam History of Present Illness The patient is a 77 year old male seen in cardiology follow up. SR noted on telemetry. Pt tolerated R thoracentesis today, yielding 1500 ml. 3.8 L of urine output noted yesterday. Allergies Coded Allergies: Clopidogrel (Verified Allergy, Unknown, RASH,EDEMA, 04/27/17) Social History Smoking Status: Former Smoker Hx Tobacco Use In Past Year?: No Hx Alcohol Use - Type And Amou: No Hx Substance Use - Type And Am: No Problem List Medical Problems: (1) Chest pain Status: Acute (2) Hyponatremia Status: Acute (3) Pleural effusion Status: Acute (4) Pulmonary edema Status: Acute (5) Supratherapeutic INR Status: Acute (6) Syncope Status: Acute Physical Exam Vital Signs Last Vital Signs Documentation Date Time Temp Pulse Resp B/P (MAP) Pulse Ox O2 Delivery O2 Flow Rate FiO2 04/30/17 12:00 Room Air 04/30/17 11:51 36.5 59 18 100/49 (66) 99 2.0 Physical Exam Constitutional: Level of Distress: NAD ENMT: TMs normal Neck: supple Lungs: Auscultation: pertinent finding (decreased BS at right base) Cardiovascular: Heart Auscultation: RRR, no murmurs Extremities: no edema Neurologic: Gait & Station: pertinent finding (no focal deficits ) Assessment and Plan Assessment and Plan Impression: 77-year-old male 1. Acute on chronic systolic heart failure, large R pleural effusion, small left pleural effusion 2. Ischemic cardiomyopathy, LVEF 20-25% 3. History of was felt to be scar mediated sustained ventricular tachycardia with resultant syncope and AICD discharge February, 4. Stage III chronic kidney disease 5. Recurrent hyponatremia hyperkalemia, trending toward improvement with diuretic therapy. Discussion/recommendations: Pt feels much improved after thoracentesis. Update CXR to re-establish for future comparison. Continue IV furosemide, will consider transitioning to oral torsemide 05/01. Avoiding ACEI / ARB, KCl supplements, aldactone given h/o elevated potassium given recurrent elevated potassium. Continue coumadin. Laboratory Results Last 24 Hours Test 04/29/17 16:25 04/29/17 20:09 04/30/17 05:46 04/30/17 06:17 Bedside Glucose 248 mg/dl 117 mg/dl 88 mg/dl White Blood Count 7.72 K/uL Red Blood Count 3.45 M/uL Hemoglobin 9.9 g/dL Hematocrit 30.8 % Mean Corpuscular Volume 89.3 fL Mean Corpuscular Hemoglobin 28.7 pg Mean Corpuscular Hemoglobin Concent 32.1 g/dl Platelet Count 135 K/uL Mean Platelet Volume 9.3 fL Neutrophils (%) (Auto) 77.0 % Lymphocytes (%) (Auto) 8.3 % Monocytes (%) (Auto) 11.5 % Eosinophils (%) (Auto) 2.2 % Basophils (%) (Auto) 0.6 % Neutrophils # (Auto) 5.94 K/uL Lymphocytes # (Auto) 0.64 K/uL Monocytes # (Auto) 0.89 K/uL Eosinophils # (Auto) 0.17 K/uL Basophils # (Auto) 0.05 K/uL RDW Standard Deviation 59.1 fL RDW Coefficient of Variation 18.1 % Immature Granulocyte % (Auto) 0.4 % Immature Granulocyte # (Auto) 0.03 K/uL Prothrombin Time 35.3 SECONDS Prothromb Time International Ratio 3.1 Sodium Level 133 mmol/L Potassium Level 3.7 mmol/L Chloride Level 97 mmol/L Carbon Dioxide Level 30 mmol/L Anion Gap 7.0 mmol/L Blood Urea Nitrogen 35 mg/dl Creatinine 1.56 mg/dl Est Creatinine Clear Calc Drug Dose 43.6 ml/min Estimated GFR () 49.6 Estimated GFR (Non- 42.8 BUN/Creatinine Ratio 22.2 Random Glucose 84 mg/dl Calcium Level 8.8 mg/dl Magnesium Level 1.9 mg/dl Test 04/30/17 09:29 04/30/17 11:27 Pleural Fluid Source RIGHT LUNG Pleural Fluid Color BIJU Pleural Fluid Appearance TURBID Pleural Fluid WBC 88 /uL Pleural Fluid RBC 3000 /uL Pleural Fluid pH 7.40 Pleural Fluid Polynuclear WBCs % 12.9 % Pleural Fluid Mononuclear WBCs % 87.1 % Pleural Fluid Total Protein 3.6 g/dl Pleural Fluid LDH 70 IU Pleural Fluid Glucose 118 mg/dl Pleural Fluid Amylase 32 U/L Bedside Glucose 172 mg/dl
[2017-04-30] MEDS: WARFARIN SOD 2.5 MG TAB PO SCH (16:13)
--- NOTE | 2017-04-30 16:27 | Progress Note ---
Internal Med Progress Note Date of Service: Apr 30, 2017. Provider Documentation: SUBJECTIVE: s/p thoracocentesis today sob improving no cough denies chest pain eating fine resting comfortably OBJECTIVE: Vital Signs-as noted below Exam: General-alert and oriented. Not in distress ENT-Normal hearing Neck-no neck masses Lungs-CTA b/l no wheezing mild bibasilar crackles present Heart-S1 and S2 heard. Regular rate and rhythm, no murmurs Abdomen-Soft Bowel sounds present no tenderness present no distension Extremities-b/l lower extremity edema present no erythema Neuro-alert and awake moves extremities Lab data as noted below. ASSESSMENT & PLAN: 77m with hx of chf, cad presents with hyponatremia.Having hyponatremia for some time and initially was thought to be hypovolemic and Lasix was stopped 4 days prior to admission.But gaining weight and Na 119 on admission. Initially received gentle fluids Na improved to 125 but was getting more sob. Fluids were stopped CXR showed b/l pleural effusions. cardiology and nephrology consulted. Hyponatremia thought to be from hypervolemia and was placed on iv Lasix. Na improved to 133 today. sob improved. s/p right thoracocentesis today and 1500ml taken out. Plan to adjust diuretics and pt/ot prior to discharge. possible d/c in 1-2 days. HYPONATREMIA presented with na 119 hx of recurrent hyponatremia thought to be from hypovolemia and initially Lasix dose was decreased and recently about 4 days ago prior to admission Lasix was stopped placed on gentle fluids NA improved to 125 next day But patient was getting more sob and also gaining weight with lower extremity edema since Lasix is stopped- fluids are stopped seen by nephrology and cardiology currently hyponatremia thought to be from hypervolemia and started on iv Lasix 40mg bid Na levels slowly improving to continue current diuretics and fluid restriction of 1200ml/day. na 133 today HYPERKALEMIA thought to be from above on iv lasix resolved f/u labs Acute on CHRONIC SYSTOLIC HEART FAILURE As per H and P: 'Pt reports hx PND and weight gain 4lbs after stopping lasix 4 days ago. CXR: increasing R pleural effusion, RLL atelectasis vs consolidation" . Lasix as above will f/u daily weights i/o Pleural effusion moderate to large right pleural effusion from chf chest US shows about 2lts on right side and about 500ml on left side will consult pulmonary in am for possible thoracocentesis s/p right thoracocentesis today 1500ml fluid taken out ARF f/u labs while on Lasix. cr 1.5 today A-Fib rate controlled. On Coumadin. INR 3.1 today continue B desmond CAD: asymptomatic on Lipitor Imdur and ASA DM II -A1C 7.1 on 03/07/17 holding po meds started on lantus 5 BID and NovoLog sliding scale per protocol 117//84/88/172 will monitor DVT PROPHYLAXIS on Coumadin Disposition Monitor in tele pt/ot possible d/c in 1-2 days Vital Signs: Date Time Temp Pulse Resp B/P (MAP) Pulse Ox O2 Delivery O2 Flow Rate FiO2 04/30/17 15:33 36.9 60 16 103/54 (70) 95 Room Air 04/30/17 12:00 Room Air 04/30/17 11:51 36.5 59 18 100/49 (66) 99 2.0 04/30/17 08:00 36.9 60 18 115/54 (74) 91 3.0 04/30/17 08:00 Nasal Cannula 3.0 04/30/17 04:00 Nasal Cannula 3.0 04/30/17 03:53 36.4 57 18 111/53 (72) 95 Nasal Cannula 3.0 04/30/17 00:00 Nasal Cannula 3.0 04/29/17 23:57 36.3 55 18 117/51 (73) 99 Nasal Cannula 3.0 04/29/17 20:00 Nasal Cannula 3.0 04/29/17 19:32 36.4 60 16 102/54 (70) 100 Nasal Cannula 3.0 Lab Results: Results Past 24 Hours Test 04/29/17 20:09 04/30/17 05:46 04/30/17 06:17 04/30/17 09:29 Range/Units Bedside Glucose 117 88 70-99 mg/dl White Blood Count 7.72 4.8-10.8 K/uL Red Blood Count 3.45 4.7-6.1 M/uL Hemoglobin 9.9 14.0-18.0 g/dL Hematocrit 30.8 42-52 % Mean Corpuscular Volume 89.3 80-100 fL Mean Corpuscular Hemoglobin 28.7 25-34 pg Mean Corpuscular Hemoglobin Concent 32.1 32-36 g/dl Platelet Count 135 130-400 K/uL Mean Platelet Volume 9.3 7.4-10.4 fL Neutrophils (%) (Auto) 77.0 % Lymphocytes (%) (Auto) 8.3 % Monocytes (%) (Auto) 11.5 % Eosinophils (%) (Auto) 2.2 % Basophils (%) (Auto) 0.6 % Neutrophils # (Auto) 5.94 1.4-6.5 K/uL Lymphocytes # (Auto) 0.64 1.2-3.4 K/uL Monocytes # (Auto) 0.89 0.11-0.59 K/uL Eosinophils # (Auto) 0.17 0-0.5 K/uL Basophils # (Auto) 0.05 0-0.2 K/uL RDW Standard Deviation 59.1 36.4-46.3 fL RDW Coefficient of Variation 18.1 11.5-14.5 % Immature Granulocyte % (Auto) 0.4 % Immature Granulocyte # (Auto) 0.03 0.00-0.02 K/uL Prothrombin Time 35.3 9.0-12.0 SECONDS Prothromb Time International Ratio 3.1 0.9-1.1 Sodium Level 133 136-145 mmol/L Potassium Level 3.7 3.5-5.1 mmol/L Chloride Level 97 98-107 mmol/L Carbon Dioxide Level 30 21-32 mmol/L Anion Gap 7.0 3-11 mmol/L Blood Urea Nitrogen 35 7-18 mg/dl Creatinine 1.56 0.60-1.40 mg/dl Est Creatinine Clear Calc Drug Dose 43.6 ml/min Estimated GFR () 49.6 Estimated GFR (Non- 42.8 BUN/Creatinine Ratio 22.2 10-20 Random Glucose 84 70-99 mg/dl Calcium Level 8.8 8.5-10.1 mg/dl Magnesium Level 1.9 1.8-2.4 mg/dl Pleural Fluid Source RIGHT LUNG Pleural Fluid Color BIJU Pleural Fluid Appearance TURBID Pleural Fluid WBC 88 /uL Pleural Fluid RBC 3000 /uL Pleural Fluid pH 7.40 7.3-7.4 Pleural Fluid Polynuclear WBCs % 12.9 % Pleural Fluid Mononuclear WBCs % 87.1 % Pleural Fluid Total Protein 3.6 g/dl Pleural Fluid LDH 70 IU Pleural Fluid Glucose 118 mg/dl Pleural Fluid Amylase 32 U/L Test 04/30/17 11:27 04/30/17 16:21 Range/Units Bedside Glucose 172 187 70-99 mg/dl Microbiology Results 04/30/17 Acid Fast Stain, Received Pending 04/30/17 Mycobacterial Culture, Received Pending 04/30/17 Gram Stain - Final, Resulted 04/30/17 Bacterial Culture, Resulted Pending
--- NOTE | 2017-04-30 17:29 | DIAGNOSTIC IMAGING REPORT ---
CHEST 2 VIEWS ROUTINE HISTORY: Pleural effusions. COMPARISON: Chest 04/28/2017. FINDINGS: Small right pleural effusion has significantly decreased in size. No pneumothorax. Small left pleural effusion, unchanged. The heart remains mildly enlarged. Left-sided pacemaker/defibrillator. Poststernotomy changes. Mild emphysema. Improved aeration seen within the lungs suggestive of resolving pulmonary edema. A few linear densities at the right lung base favor subsegmental atelectasis or scarring. IMPRESSION: 1. Decrease in size in the small right pleural effusion. No pneumothorax. 2. A small left pleural effusion persists. 3. Improved aeration within the lungs suggestive of resolving pulmonary edema. Electronically signed by: Kings Rodrigez M.D. 04/30/2017 5:28 PM Dictated Date/Time: 04/30/2017 5:26 PM
[2017-04-30] MEDS: METOPROLOL SUCC 25MG EXT REL TAB PO SCH (21:28)
[2017-05-01 00:13] VITALS: BP 118/59; PULSE 60; TEMP 36.8; O2SAT 94
[2017-05-01 03:49] VITALS: BP 120/54; PULSE 60; TEMP 36.5; O2SAT 91
[2017-05-01 06:52] LABS: BASO % 0.7 %; BASO ABS # 0.04 K/uL (0-0.2); COMPLETE YES; EOS % 2.3 %; HEMATOCRIT 30.7 % (42-52); IG% 0.2 %; LYMPH % 9.6 %; LYMPH ABS # 0.58 K/uL (1.2-3.4); MEAN CELL VOLUME 88.5 fL (80-100); MEAN CORPUSCULAR HEMOGLOBIN 29.1 pg (25-34); MEAN CORPUSCULAR HGB CONC 32.9 g/dl (32-36); MEAN PLATELET VOLUME 9.4 fL (7.4-10.4); MONO % 10.4 %; NEUT % 76.8 %; PLATELET COUNT 138 K/uL (130-400); RED BLOOD COUNT 3.47 M/uL (4.7-6.1); WHITE BLOOD COUNT 6.04 K/uL (4.8-10.8)
[2017-05-01 06:58] LABS: INR 2.9 (0.9-1.1); PROTHROMBIN TIME (PATIENT) 32.8 SECONDS (9.0-12.0)
[2017-05-01 07:24] LABS: BUN/CREATININE RATIO 24.2 (10-20); CALCIUM 8.5 mg/dl (8.5-10.1); CREATININE 1.46 mg/dl (0.60-1.40); MAGNESIUM 1.8 mg/dl (1.8-2.4); POTASSIUM 3.3 mmol/L (3.5-5.1)
[2017-05-01 07:58] VITALS: BP 96/53; PULSE 60; TEMP 36.3; O2SAT 93
[2017-05-01] MEDS: AMIODARONE 200 MG TAB PO SCH ×2 (08:14→20:40)
[2017-05-01] MEDS: FUROSEMIDE INJ 40 MG in SYRINGE 0 ML IV SCH (08:14)
[2017-05-01] MEDS: ASPIRIN 81 MG ECTAB PO SCH (08:14)
[2017-05-01] MEDS: METOPROLOL SUCC 50MG EXT REL TAB PO SCH (08:14)
[2017-05-01] MEDS: ATORVASTATIN 40 MG TAB PO SCH (08:14)
[2017-05-01] MEDS: ISOSORBIDE MONONITRATE 60 MG TABCR PO SCH (08:15)
[2017-05-01] MEDS: FoLIC ACID TAB 400 MCG TAB PO SCH (08:15)
[2017-05-01] MEDS: CHOLECALCIFEROL 1000 INTER.UNIT TAB PO SCH (08:15)
[2017-05-01] MEDS: MAGNESIUM CHLORIDE 64MG DELAYED REL TAB PO SCH ×2 (08:15→20:39)
[2017-05-01] MEDS: INSULIN GLARGINE SOLOSTAR 100 UNITS/ML 3 ML PEN SC SCH ×2 (08:17→20:39)
[2017-05-01] MEDS: INSULIN ASPART 100 UNITS/ML 3 ML PEN SC SCH ×3 (08:17→16:51)
--- NOTE | 2017-05-01 09:22 | Cardiology Follow-Up ---
Subjective General Date of Service: May 01, 2017. Chief Complaint: follow up exertional shortness of breath, hyponatremia, hyperkalemia Pt evaluation today including: conversation w/ patient, conversation w/ family , physical exam, chart review, lab review, review of studies, review of inpatient medication list History of Present Illness Patient seen and examined. and daughter at bedside Chart, medications, and telemetry reviewed. Status post 04/30/2017 right thoracentesis. + Cough. Maintaining SP02 without supplemental oxygen No chest pain, palpations, resting dyspnea, or peripheral edema. Telemetry: Sinus at 60 bpm. Allergies Coded Allergies: Clopidogrel (Verified Allergy, Unknown, RASH,EDEMA, 04/27/17) Social History Smoking Status: Former Smoker Hx Tobacco Use In Past Year?: No Hx Alcohol Use - Type And Amou: No Hx Substance Use - Type And Am: No Problem List Medical Problems: (1) Chest pain Status: Acute (2) Hyponatremia Status: Acute (3) Pleural effusion Status: Acute (4) Pulmonary edema Status: Acute (5) Supratherapeutic INR Status: Acute (6) Syncope Status: Acute Physical Exam Vital Signs Last Vital Signs Documentation Date Time Temp Pulse Resp B/P (MAP) Pulse Ox O2 Delivery O2 Flow Rate FiO2 05/01/17 07:58 36.3 60 16 96/53 (67) 93 05/01/17 04:00 Room Air 05/01/17 00:00 3.0 Physical Exam Constitutional: Level of Distress: NAD Psychiatric: Mental Status: active & alert Orientation: to time, to place, to person Memory: recent memory normal, remote memory normal Head: normocephalic, atraumatic Neck: supple, pertinent finding (Normal JVP) Lungs: Respiratory effort: no dyspnea Auscultation: no wheezing, no rales/crackles, no rhonchi, pertinent finding (absent breath sounds at the right base. ) Cardiovascular: Heart Auscultation: RRR, no murmurs Extremities: no edema Neurologic: Gait & Station: pertinent finding (no focal deficits ) Assessment and Plan Assessment and Plan ASSESSMENT Acute on chronic systolic heart failure Large right pleural effusion and a small left pleural effusion, status post right thoracentesis on 04/30/2017 Hyponatremia Mild hypokalemia with history of longstanding hyperkalemia. Severe ischemic cardiomyopathy, LVEF 20-25% Probable scar mediated sustained ventricular tachycardia with resultant syncope , AICD discharge February 2017 Stage III chronic kidney disease RECOMMENDATIONS: Repeat PRP this morning PA and lateral chest x-ray this afternoon. Transition to oral Torsemide, 20 mg twice a day, this evening. Fluid restrictions reiterated. Continue to avoid ACEI, ARB, and Aldactone. Continue Toprol XL and amiodarone. CARDIOLOGY ATTENDING ADDENDUM: The patient was seen and personally examined. Agree with Gonzalo Sykes PA-C's findings and plans as documented above with additions as noted below. S: feeling well. Objective: minimally decreased BS at R base, much improved. No LE edema Data: Repeat chem panel drawn, results pending CXR: minimal residual R pleural fluid Imp: as above Plan: await repeat chem panel. transition to oral torsemide. Laboratory Results Last 24 Hours Test 04/30/17 09:29 04/30/17 11:27 04/30/17 16:21 04/30/17 19:54 Pleural Fluid Source RIGHT LUNG Pleural Fluid Color BIJU Pleural Fluid Appearance TURBID Pleural Fluid WBC 88 /uL Pleural Fluid RBC 3000 /uL Pleural Fluid pH 7.40 Pleural Fluid Polynuclear WBCs % 12.9 % Pleural Fluid Mononuclear WBCs % 87.1 % Pleural Fluid Total Protein 3.6 g/dl Pleural Fluid LDH 70 IU Pleural Fluid Glucose 118 mg/dl Pleural Fluid Amylase 32 U/L Bedside Glucose 172 mg/dl 187 mg/dl 201 mg/dl Test 05/01/17 06:14 05/01/17 06:20 White Blood Count 6.04 K/uL Red Blood Count 3.47 M/uL Hemoglobin 10.1 g/dL Hematocrit 30.7 % Mean Corpuscular Volume 88.5 fL Mean Corpuscular Hemoglobin 29.1 pg Mean Corpuscular Hemoglobin Concent 32.9 g/dl Platelet Count 138 K/uL Mean Platelet Volume 9.4 fL Neutrophils (%) (Auto) 76.8 % Lymphocytes (%) (Auto) 9.6 % Monocytes (%) (Auto) 10.4 % Eosinophils (%) (Auto) 2.3 % Basophils (%) (Auto) 0.7 % Neutrophils # (Auto) 4.64 K/uL Lymphocytes # (Auto) 0.58 K/uL Monocytes # (Auto) 0.63 K/uL Eosinophils # (Auto) 0.14 K/uL Basophils # (Auto) 0.04 K/uL RDW Standard Deviation 57.9 fL RDW Coefficient of Variation 17.9 % Immature Granulocyte % (Auto) 0.2 % Immature Granulocyte # (Auto) 0.01 K/uL Prothrombin Time 32.8 SECONDS Prothromb Time International Ratio 2.9 Sodium Level 130 mmol/L Potassium Level 3.3 mmol/L Chloride Level 96 mmol/L Carbon Dioxide Level 27 mmol/L Anion Gap 7.0 mmol/L Blood Urea Nitrogen 35 mg/dl Creatinine 1.46 mg/dl Est Creatinine Clear Calc Drug Dose 46.5 ml/min Estimated GFR () 53.8 Estimated GFR (Non- 46.4 BUN/Creatinine Ratio 24.2 Random Glucose 114 mg/dl Calcium Level 8.5 mg/dl Magnesium Level 1.8 mg/dl Bedside Glucose 122 mg/dl
[2017-05-01] MEDS ORDERED: POTASSIUM CHLORIDE 10 MEQ TABCR PO STA (09:38)
--- NOTE | 2017-05-01 09:41 | Nephrology Progress Note ---
Nephrology Progress Note Date of Service: May 01, 2017. Subjective 77 yo male seen for follow up of volume overload and ckd and hyponatremia. on lasix 40 iv bid. had thoracentesis yesterday and breathing well. Objective Date Time Temp Pulse Resp B/P (MAP) Pulse Ox O2 Delivery O2 Flow Rate FiO2 05/01/17 07:58 36.3 60 16 96/53 (67) 93 05/01/17 04:00 Room Air 05/01/17 03:49 36.5 60 17 120/54 (76) 91 Room Air 05/01/17 00:13 36.8 60 18 118/59 (78) 94 Room Air 05/01/17 00:00 Nasal Cannula 3.0 04/30/17 21:20 60 125/56 (79) 04/30/17 20:00 Room Air 04/30/17 19:40 36.8 60 16 106/55 (72) 97 Room Air 04/30/17 16:00 95 Room Air 04/30/17 15:33 36.9 60 16 103/54 (70) 95 Room Air 04/30/17 12:00 Room Air 04/30/17 11:51 36.5 59 18 100/49 (66) 99 2.0 Physical Exam: General-aaox3 Eyes-no scleral icterus ENT-mmm Neck-supple Lungs-cta Heart-rrr Abdomen-bs+ s/nt/nd Extremities-no edema Neuro-nonfocal Current Inpatient Medications Medications (Trade) Dose Ordered Sig/Gustavo Route Start Time Stop Time Status Last Admin Dose Admin Acetaminophen (Tylenol Tab) 650 mg Q4H PRN PO 04/27/17 17:15 05/27/17 17:14 Ondansetron HCl (Zofran Inj) 4 mg Q6H PRN IV 04/27/17 17:15 05/27/17 17:14 Insulin Glargine (Lantus Solostar Pen) 5 units Q12 SC 04/27/17 21:00 05/27/17 20:59 05/01/17 08:17 5 UNITS Insulin Aspart (novoLOG ASPART) SLIDING SCALE If C... ACHS SC 04/27/17 21:00 05/27/17 20:59 05/01/17 08:17 3 UNITS Glucose (Glucose 40% Gel) 15-30 GRAMS 15 GRAMS... UD PRN PO 04/27/17 17:15 05/27/17 17:14 Glucose (Glucose Chew Tab) 4-8 Tablets 4 Tabl... UD PRN PO 04/27/17 17:15 05/27/17 17:14 Dextrose (Dextrose 50% 50ML Syringe) 25-50ML OF 50% DW IV FOR... UD PRN IV 04/27/17 17:15 05/27/17 17:14 Glucagon (Glucagon Inj) 1 mg UD PRN SQ 04/27/17 17:15 05/27/17 17:14 Amiodarone HCl (Cordarone Tab) 200 mg BID PO 04/27/17 21:00 05/27/17 20:59 05/01/17 08:14 200 MG Aspirin (Ecotrin Tab) 81 mg DAILY PO 04/28/17 09:00 05/28/17 08:59 05/01/17 08:14 81 MG Atorvastatin Calcium (Lipitor Tab) 40 mg DAILY PO 04/28/17 09:00 05/28/17 08:59 05/01/17 08:14 40 MG Cholecalciferol (Vitamin D Tab) 2,000 inter.unit DAILY PO 04/28/17 09:00 05/28/17 08:59 05/01/17 08:15 2,000 INTER.UNIT Folic Acid (Folvite Tab) 400 mcg DAILY PO 04/28/17 09:00 05/28/17 08:59 05/01/17 08:15 400 MCG Isosorbide Mononitrate (Imdur Ext Rel Tab) 120 mg QAM PO 04/28/17 09:00 05/28/17 08:59 05/01/17 08:15 120 MG Magnesium Chloride (Slow-Mag Tab) 128 mg BID PO 04/27/17 21:00 05/27/17 20:59 05/01/17 08:15 128 MG Metoprolol Succinate (Toprol Xl Tab) 75 mg PM PO 04/27/17 21:00 05/27/17 20:59 04/30/17 21:28 75 MG Metoprolol Succinate (Toprol Xl Tab) 100 mg DAILY PO 04/28/17 09:00 05/28/17 08:59 05/01/17 08:14 100 MG Warfarin Sodium (Coumadin Tab) 2.5 mg DAILY@1600 PO 04/27/17 21:00 05/27/17 20:59 04/30/17 16:13 2.5 MG Nitroglycerin (Nitrostat Tab) 0.4 mg UD PRN SL 04/27/17 17:30 05/27/17 17:29 Torsemide (Demadex Tab) 20 mg BID17 PO 05/01/17 17:00 05/31/17 16:59 Last 24 Hours Test 04/30/17 11:27 04/30/17 16:21 04/30/17 19:54 05/01/17 06:14 Bedside Glucose 172 mg/dl 187 mg/dl 201 mg/dl White Blood Count 6.04 K/uL Red Blood Count 3.47 M/uL Hemoglobin 10.1 g/dL Hematocrit 30.7 % Mean Corpuscular Volume 88.5 fL Mean Corpuscular Hemoglobin 29.1 pg Mean Corpuscular Hemoglobin Concent 32.9 g/dl Platelet Count 138 K/uL Mean Platelet Volume 9.4 fL Neutrophils (%) (Auto) 76.8 % Lymphocytes (%) (Auto) 9.6 % Monocytes (%) (Auto) 10.4 % Eosinophils (%) (Auto) 2.3 % Basophils (%) (Auto) 0.7 % Neutrophils # (Auto) 4.64 K/uL Lymphocytes # (Auto) 0.58 K/uL Monocytes # (Auto) 0.63 K/uL Eosinophils # (Auto) 0.14 K/uL Basophils # (Auto) 0.04 K/uL RDW Standard Deviation 57.9 fL RDW Coefficient of Variation 17.9 % Immature Granulocyte % (Auto) 0.2 % Immature Granulocyte # (Auto) 0.01 K/uL Prothrombin Time 32.8 SECONDS Prothromb Time International Ratio 2.9 Sodium Level 130 mmol/L Potassium Level 3.3 mmol/L Chloride Level 96 mmol/L Carbon Dioxide Level 27 mmol/L Anion Gap 7.0 mmol/L Blood Urea Nitrogen 35 mg/dl Creatinine 1.46 mg/dl Est Creatinine Clear Calc Drug Dose 46.5 ml/min Estimated GFR () 53.8 Estimated GFR (Non- 46.4 BUN/Creatinine Ratio 24.2 Random Glucose 114 mg/dl Calcium Level 8.5 mg/dl Magnesium Level 1.8 mg/dl Test 05/01/17 06:20 05/01/17 09:22 Bedside Glucose 122 mg/dl Assessment & Plan ckd stage [id number] stable despite diuresis. Hyponatremia-diuresing nicely and goal sodium of 130 or higher. at acceptable level. on 1200cc fluid restriction and lasix. hypokalemia-k trending down at 3.3. mag levels are good at 1.8. give 40meq of kdur now and recheck around 2pm.
[2017-05-01 12:02] VITALS: BP 100/58; PULSE 61; TEMP 36.4; O2SAT 96
--- NOTE | 2017-05-01 13:32 | DIAGNOSTIC IMAGING REPORT ---
CHEST 2 VIEWS ROUTINE CLINICAL HISTORY: 77 years-old Male presenting with ? Reaccumulation of r pleural effusion. TECHNIQUE: PA and lateral views of the chest were obtained. COMPARISON: 04/30/2017. FINDINGS: Left subclavian implanted cardiac defibrillator with leads to the right atrium and right ventricular apex. Median sternotomy wires and mediastinal surgical clips unchanged. Atherosclerosis of aortic arch. Cardiac silhouette mildly enlarged, unchanged. Mitral annular calcification may be present. Persistent vague and linear opacities at the lung bases, right greater than left. Improved aeration of the left lung base with decreased left pleural fluid, now trace. Persistent small right pleural effusion. No pneumothorax. Degenerative changes of the thoracic spine. Upper abdomen normal. IMPRESSION: 1. Persistent small right pleural effusion with right greater than left basilar atelectasis. Decreased left pleural fluid, now trace. Electronically signed by: Miguel Carranza M.D. 05/01/2017 1:31 PM Dictated Date/Time: 05/01/2017 1:29 PM
[2017-05-01 15:48] LABS: BUN/CREATININE RATIO 21.5 (10-20); CALCIUM 8.8 mg/dl (8.5-10.1); CREATININE 1.82 mg/dl (0.60-1.40); POTASSIUM 3.9 mmol/L (3.5-5.1)
[2017-05-01] MEDS: WARFARIN SOD 2.5 MG TAB PO SCH (15:48)
[2017-05-01 15:50] VITALS: BP 110/55; PULSE 59; TEMP 36.5; O2SAT 96
--- NOTE | 2017-05-01 16:01 | Progress Note ---
Internal Med Progress Note Date of Service: May 01, 2017. Provider Documentation: SUBJECTIVE: Patient seen and examined at the bedside. Able to sit up on his own. Breathing and speaking comfortably on room air OBJECTIVE: Exam: General- no acute distress Eyes- EOMI ENT- no epistaxis Neck- no JVD Lungs- good air entry Heart- regular rate Abdomen- soft, nontender, + bowel sounds Extremities- no edema Neuro-no focal deficits ASSESSMENT & PLAN: 77m with hx of chf, cad presents with hyponatremia.Having hyponatremia for some time and initially was thought to be hypovolemic and Lasix was stopped 4 days prior to admission.But gaining weight and Na 119 on admission. Initially received gentle fluids Na improved to 125 but was getting more sob. Fluids were stopped CXR showed b/l pleural effusions. cardiology and nephrology consulted. Hyponatremia thought to be from hypervolemia and was placed on iv Lasix. Na improved to 133 today. sob improved. s/p right thoracocentesis on 04/30/17 and 1500ml taken out. Problems Acute on chronic systolic heart failure, Severe ischemic cardiomyopathy, LVEF 20 -25%, Probable scar mediated sustained ventricular tachycardia with resultant syncope, AICD discharge February 2017 -Large right pleural effusion and a small left pleural effusion, status post right thoracentesis on 04/30/2017, CXR on 05/01/17 Persistent small right pleural effusion with right greater than left basilar atelectasis. Decreased left pleural fluid, now trace -Transition from Lasix to oral Torsemide, 20 mg twice a day -Continue to avoid ACEI, ARB, and Aldactone. -Continue Toprol XL and amiodarone. -A-Fib rate controlled. On Coumadin. INR 2.9 on 05/01/17 Stage III chronic kidney disease -followed by nephrology consult -patient able to urinate Electrolytes Serum Sodium and Serum Potassium affected by diuresis and at time fluid overload. Serum hyponatremia still present but stabilizing and patient is clinically not fluid overloaded today. Will also expect these numbers to affected by switch from Lasix to Torsemide. Trend and replete serum potassium if hypokalemic while on diuretics DM II -A1C 7.1 on 03/07/17 holding po meds continue on lantus 5 BID and NovoLog sliding scale per protocol DVT PROPHYLAXIS on Coumadin Vital Signs: Date Time Temp Pulse Resp B/P (MAP) Pulse Ox O2 Delivery O2 Flow Rate FiO2 05/01/17 15:50 36.5 59 20 110/55 (73) 96 Room Air 05/01/17 12:02 36.4 61 19 100/58 (72) 96 05/01/17 12:00 Room Air 05/01/17 08:00 Room Air 05/01/17 07:58 36.3 60 16 96/53 (67) 93 05/01/17 04:00 Room Air 05/01/17 03:49 36.5 60 17 120/54 (76) 91 Room Air 05/01/17 00:13 36.8 60 18 118/59 (78) 94 Room Air 05/01/17 00:00 Nasal Cannula 3.0 04/30/17 21:20 60 125/56 (79) 04/30/17 20:00 Room Air 04/30/17 19:40 36.8 60 16 106/55 (72) 97 Room Air Lab Results: Results Past 24 Hours Test 04/30/17 16:21 04/30/17 19:54 05/01/17 06:14 05/01/17 06:20 Range/Units Bedside Glucose 187 201 122 70-99 mg/dl White Blood Count 6.04 4.8-10.8 K/uL Red Blood Count 3.47 4.7-6.1 M/uL Hemoglobin 10.1 14.0-18.0 g/dL Hematocrit 30.7 42-52 % Mean Corpuscular Volume 88.5 80-100 fL Mean Corpuscular Hemoglobin 29.1 25-34 pg Mean Corpuscular Hemoglobin Concent 32.9 32-36 g/dl Platelet Count 138 130-400 K/uL Mean Platelet Volume 9.4 7.4-10.4 fL Neutrophils (%) (Auto) 76.8 % Lymphocytes (%) (Auto) 9.6 % Monocytes (%) (Auto) 10.4 % Eosinophils (%) (Auto) 2.3 % Basophils (%) (Auto) 0.7 % Neutrophils # (Auto) 4.64 1.4-6.5 K/uL Lymphocytes # (Auto) 0.58 1.2-3.4 K/uL Monocytes # (Auto) 0.63 0.11-0.59 K/uL Eosinophils # (Auto) 0.14 0-0.5 K/uL Basophils # (Auto) 0.04 0-0.2 K/uL RDW Standard Deviation 57.9 36.4-46.3 fL RDW Coefficient of Variation 17.9 11.5-14.5 % Immature Granulocyte % (Auto) 0.2 % Immature Granulocyte # (Auto) 0.01 0.00-0.02 K/uL Prothrombin Time 32.8 9.0-12.0 SECONDS Prothromb Time International Ratio 2.9 0.9-1.1 Sodium Level 130 136-145 mmol/L Potassium Level 3.3 3.5-5.1 mmol/L Chloride Level 96 98-107 mmol/L Carbon Dioxide Level 27 21-32 mmol/L Anion Gap 7.0 3-11 mmol/L Blood Urea Nitrogen 35 7-18 mg/dl Creatinine 1.46 0.60-1.40 mg/dl Est Creatinine Clear Calc Drug Dose 46.5 ml/min Estimated GFR () 53.8 Estimated GFR (Non- 46.4 BUN/Creatinine Ratio 24.2 10-20 Random Glucose 114 70-99 mg/dl Calcium Level 8.5 8.5-10.1 mg/dl Magnesium Level 1.8 1.8-2.4 mg/dl Test 05/01/17 11:33 05/01/17 14:21 Range/Units Bedside Glucose 216 70-99 mg/dl Sodium Level 130 136-145 mmol/L Potassium Level 3.9 3.5-5.1 mmol/L Chloride Level 95 98-107 mmol/L Carbon Dioxide Level 31 21-32 mmol/L Anion Gap 4.0 3-11 mmol/L Blood Urea Nitrogen 39 7-18 mg/dl Creatinine 1.82 0.60-1.40 mg/dl Est Creatinine Clear Calc Drug Dose 37.3 ml/min Estimated GFR () 41.2 Estimated GFR (Non- 35.5 BUN/Creatinine Ratio 21.5 10-20 Random Glucose 211 70-99 mg/dl Calcium Level 8.8 8.5-10.1 mg/dl
[2017-05-01] MEDS: TORSEMIDE 20 MG TAB PO SCH (16:51)
[2017-05-01 19:26] VITALS: BP 110/56; PULSE 60; TEMP 36.4; O2SAT 97
[2017-05-01] MEDS ORDERED: INSULIN ASPART 100 UNITS/ML 3 ML PEN SC ONE (20:30)
[2017-05-01] MEDS: METOPROLOL SUCC 25MG EXT REL TAB PO SCH (20:41)
[2017-05-02 00:34] VITALS: BP 118/53; PULSE 60; TEMP 36.5; O2SAT 96
[2017-05-02 03:46] VITALS: BP 101/55; PULSE 60; TEMP 36.8; O2SAT 96
[2017-05-02 06:29] LABS: BASO % 0.7 %; BASO ABS # 0.04 K/uL (0-0.2); COMPLETE YES; EOS % 2.3 %; HEMATOCRIT 31.5 % (42-52); IG% 0.5 %; LYMPH % 12.1 %; LYMPH ABS # 0.74 K/uL (1.2-3.4); MEAN CORPUSCULAR HEMOGLOBIN 29.1 pg (25-34); MEAN PLATELET VOLUME 9.7 fL (7.4-10.4); MONO % 9.5 %; NEUT % 74.9 %; PLATELET COUNT 154 K/uL (130-400); RED BLOOD COUNT 3.58 M/uL (4.7-6.1)
[2017-05-02 06:37] LABS: INR 2.4 (0.9-1.1); PROTHROMBIN TIME (PATIENT) 26.5 SECONDS (9.0-12.0)
[2017-05-02 07:07] LABS: BUN/CREATININE RATIO 30.2 (10-20); CALCIUM 8.9 mg/dl (8.5-10.1); CREATININE 1.68 mg/dl (0.60-1.40); MAGNESIUM 1.7 mg/dl (1.8-2.4); POTASSIUM 3.7 mmol/L (3.5-5.1)
[2017-05-02 07:37] VITALS: BP 110/48; PULSE 60; TEMP 36.8; O2SAT 94
[2017-05-02] MEDS ORDERED: POTASSIUM CHLORIDE 20 MEQ TABCR PO STA (07:38)
[2017-05-02] MEDS: INSULIN ASPART 100 UNITS/ML 3 ML PEN SC SCH ×2 (08:14→11:42)
[2017-05-02] MEDS: INSULIN GLARGINE SOLOSTAR 100 UNITS/ML 3 ML PEN SC SCH (08:15)
[2017-05-02] MEDS: MAGNESIUM SULFATE 1GM / D5W 1 GM in PREMIXED IN D5W 100 ML IV SCH ×2 (08:15→09:24)
[2017-05-02] MEDS: AMIODARONE 200 MG TAB PO SCH (08:16)
[2017-05-02] MEDS: TORSEMIDE 20 MG TAB PO SCH (08:16)
[2017-05-02] MEDS: ATORVASTATIN 40 MG TAB PO SCH (08:16)
[2017-05-02] MEDS: ASPIRIN 81 MG ECTAB PO SCH (08:16)
[2017-05-02] MEDS: MAGNESIUM CHLORIDE 64MG DELAYED REL TAB PO SCH (08:16)
[2017-05-02] MEDS: FoLIC ACID TAB 400 MCG TAB PO SCH (08:17)
[2017-05-02] MEDS: ISOSORBIDE MONONITRATE 60 MG TABCR PO SCH (08:17)
[2017-05-02] MEDS: CHOLECALCIFEROL 1000 INTER.UNIT TAB PO SCH (08:17)
[2017-05-02] MEDS: METOPROLOL SUCC 50MG EXT REL TAB PO SCH (08:17)
--- NOTE | 2017-05-02 09:41 | Cardiology Follow-Up ---
Subjective General Date of Service: May 02, 2017. Chief Complaint: follow up exertional shortness of breath, hyponatremia, hyperkalemia Pt evaluation today including: conversation w/ patient, conversation w/ family , physical exam, chart review, lab review, review of studies, review of inpatient medication list History of Present Illness Patient seen and examined. , son, and daughter at bedside Chart, medications, and telemetry reviewed. + Cough. Maintaining SP02 without supplemental oxygen. Notes walking around the floor, tolerating activity better than he has in some time. No chest pain, palpations, resting dyspnea, or peripheral edema. Telemetry: Sinus at 60 bpm. PVC's in singles. Atrial paced with rare intermittent ventricular pacing. Allergies Coded Allergies: Clopidogrel (Verified Allergy, Unknown, RASH,EDEMA, 04/27/17) Social History Smoking Status: Former Smoker Hx Tobacco Use In Past Year?: No Hx Alcohol Use - Type And Amou: No Hx Substance Use - Type And Am: No Problem List Medical Problems: (1) Chest pain Status: Acute (2) Hyponatremia Status: Acute (3) Pleural effusion Status: Acute (4) Pulmonary edema Status: Acute (5) Supratherapeutic INR Status: Acute (6) Syncope Status: Acute Physical Exam Vital Signs Last Vital Signs Documentation Date Time Temp Pulse Resp B/P (MAP) Pulse Ox O2 Delivery O2 Flow Rate FiO2 05/02/17 07:37 36.8 60 16 110/48 (68) 94 Room Air 05/01/17 00:00 3.0 Physical Exam Constitutional: Level of Distress: NAD Psychiatric: Mental Status: active & alert Orientation: to time, to place, to person Memory: recent memory normal, remote memory normal Head: normocephalic, atraumatic Neck: supple, pertinent finding (Normal JVP) Lungs: Respiratory effort: no dyspnea Auscultation: no wheezing, no rales/crackles, no rhonchi, pertinent finding (absent breath sounds at the right base. ) Cardiovascular: Heart Auscultation: RRR, no murmurs Extremities: no edema Neurologic: Gait & Station: pertinent finding (no focal deficits ) Assessment and Plan Assessment and Plan ASSESSMENT Compensated systolic heart failure signs and symptoms. Large right pleural effusion and a small left pleural effusion, status post right thoracentesis on 04/30/2017 Hyponatremia, improved. Mild hypokalemia with IV diuresis; longstanding history of hyperkalemia Severe ischemic cardiomyopathy, LVEF 20-25% Probable scar mediated sustained ventricular tachycardia with resultant syncope , AICD discharge February 2017 Stage III chronic kidney disease RECOMMENDATIONS: Continue as prescribed. Sodium and fluid restrictions reviewed. Furosemide discontinued in favor of Torsemide, 20 mg twice a day, this admission Patient to liberalize intake of potassium foods, prior to adding supplementation potassium . Continue Toprol XL and amiodarone. Avoid ACEI, ARB, and Aldactone. CXR, CMP, and magnesium level on Sunday at [facility] Office Will arrange for Cardiology follow-up within the next two weeks CARDIOLOGY ATTENDING ADDENDUM: The patient was seen and personally examined. Agree with Gonzalo Sykes PA-C's findings and plans as documented above. S: pt feeling better Examination: Minimally decreased breath sounds at the bases bilaterally, much improved compared to prior to thoracentesis. If significant lower extremity edema. Data Last Resulted 05/02/17 06:11 Red Blood Count 3.58, Mean Corpuscular Volume 88.0, Mean Corpuscular Hemoglobin 29.1, Mean Corpuscular Hemoglobin Concent 33.0, Mean Platelet Volume 9.7, Neutrophils (%) (Auto) 74.9, Lymphocytes (%) (Auto) 12.1, Monocytes (%) (Auto) 9.5, Eosinophils (%) (Auto) 2.3, Basophils (%) (Auto) 0.7, Neutrophils # (Auto) 4.57, Lymphocytes # (Auto) 0.74, Monocytes # (Auto) 0.58, Eosinophils # (Auto) 0.14, Basophils # (Auto) 0.04 Last Resulted 05/02/17 06:11 Past 24 Hours Test 05/02/17 06:11 Range/Units Prothromb Time International Ratio 2.4 H 0.9-1.1 Prothrombin Time 26.5 H 9.0-12.0 SECONDS Impression: as above. 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 Laboratory Results Last 24 Hours Test 05/01/17 11:33 05/01/17 14:21 05/01/17 16:13 05/01/17 19:54 Bedside Glucose 216 mg/dl 197 mg/dl 273 mg/dl Sodium Level 130 mmol/L Potassium Level 3.9 mmol/L Chloride Level 95 mmol/L Carbon Dioxide Level 31 mmol/L Anion Gap 4.0 mmol/L Blood Urea Nitrogen 39 mg/dl Creatinine 1.82 mg/dl Est Creatinine Clear Calc Drug Dose 37.3 ml/min Estimated GFR () 41.2 Estimated GFR (Non- 35.5 BUN/Creatinine Ratio 21.5 Random Glucose 211 mg/dl Calcium Level 8.8 mg/dl Test 05/02/17 06:11 05/02/17 06:30 White Blood Count 6.10 K/uL Red Blood Count 3.58 M/uL Hemoglobin 10.4 g/dL Hematocrit 31.5 % Mean Corpuscular Volume 88.0 fL Mean Corpuscular Hemoglobin 29.1 pg Mean Corpuscular Hemoglobin Concent 33.0 g/dl Platelet Count 154 K/uL Mean Platelet Volume 9.7 fL Neutrophils (%) (Auto) 74.9 % Lymphocytes (%) (Auto) 12.1 % Monocytes (%) (Auto) 9.5 % Eosinophils (%) (Auto) 2.3 % Basophils (%) (Auto) 0.7 % Neutrophils # (Auto) 4.57 K/uL Lymphocytes # (Auto) 0.74 K/uL Monocytes # (Auto) 0.58 K/uL Eosinophils # (Auto) 0.14 K/uL Basophils # (Auto) 0.04 K/uL RDW Standard Deviation 57.3 fL RDW Coefficient of Variation 17.6 % Immature Granulocyte % (Auto) 0.5 % Immature Granulocyte # (Auto) 0.03 K/uL Prothrombin Time 26.5 SECONDS Prothromb Time International Ratio 2.4 Sodium Level 132 mmol/L Potassium Level 3.7 mmol/L Chloride Level 97 mmol/L Carbon Dioxide Level 29 mmol/L Anion Gap 6.0 mmol/L Blood Urea Nitrogen 51 mg/dl Creatinine 1.68 mg/dl Est Creatinine Clear Calc Drug Dose 40.4 ml/min Estimated GFR () 45.4 Estimated GFR (Non- 39.1 BUN/Creatinine Ratio 30.2 Random Glucose 152 mg/dl Calcium Level 8.9 mg/dl Magnesium Level 1.7 mg/dl Bedside Glucose 151 mg/dl
[2017-05-02 12:15] VITALS: BP 99/50; PULSE 61; TEMP 36.4; O2SAT 98
[2017-05-02 12:31] VITALS: BP 99/50; PULSE 61; TEMP 36.4; O2SAT 98
--- NOTE | 2017-05-02 12:33 | Progress Note ---
Internal Med Progress Note Date of Service: May 02, 2017. Provider Documentation: SUBJECTIVE: Patient seen and examined at the bedside. Able to sit up on his own. Breathing and speaking comfortably on room air OBJECTIVE: Exam: General- no acute distress Eyes- EOMI ENT- no epistaxis Neck- no JVD Lungs- good air entry, there are some dullness over left lung buitrago consistent with residual congestion Heart- regular rate Abdomen- soft, nontender, + bowel sounds Extremities- no edema Neuro-no focal deficits ASSESSMENT & PLAN: 77 year old Male with hx of chf, cad presents with hyponatremia.Having hyponatremia for some time and initially was thought to be hypovolemic and Lasix was stopped 4 days prior to admission.But gaining weight and Na 119 on admission. Initially received gentle fluids Na improved to 125 but was getting more sob. Fluids were stopped CXR showed b/l pleural effusions. Cardiology and Nephrology consulted. Hyponatremia thought to be from hypervolemia and was placed on Vv Lasix. Na improved to 133 today. sob improved. s/p right thoracocentesis on 04/30/17 and 1500ml taken out. Problems Acute on chronic systolic heart failure, Severe ischemic cardiomyopathy, LVEF 20 -25%, Probable scar mediated sustained ventricular tachycardia with resultant syncope, AICD discharge February 2017 -Large right pleural effusion and a small left pleural effusion, status post right thoracentesis on 04/30/2017, CXR on 05/01/17 Persistent small right pleural effusion with right greater than left basilar atelectasis. Decreased left pleural fluid, now trace -Transitioned from Lasix to oral Torsemide, 20 mg twice a day -Continue to avoid ACEI, ARB, and Aldactone. -Continue Toprol XL and amiodarone. -A-Fib rate controlled. On Coumadin. INR 2.4 on 05/02/17 Stage III chronic kidney disease -followed by nephrology consult as inpatient while on diuresis Electrolytes Serum Sodium and Serum Potassium affected by diuresis and at time fluid overload. Serum sodium 132 and serum potassium 3.7 on discharge day DM II -A1C 7.1 on 03/07/17 -continue home medications on discharge Discharge to home today Follow up appointments: 05/03/2017 6:15 PM [facility] 05/10/17 10:45 AM General Internal Medicine [facility] Krystian Ellis 05/16 2:45 PM Cardiology, [facility] [place] Gonzalo Sykes Vital Signs: Date Time Temp Pulse Resp B/P (MAP) Pulse Ox O2 Delivery O2 Flow Rate FiO2 05/02/17 12:31 36.4 61 16 99/50 (66) 98 Room Air 05/02/17 12:15 36.4 61 16 99/50 (66) 98 Room Air 05/02/17 08:00 Room Air 05/02/17 07:37 36.8 60 16 110/48 (68) 94 Room Air 05/02/17 03:46 36.8 60 18 101/55 (70) 96 Room Air 05/02/17 00:34 36.5 60 21 118/53 (74) 96 Room Air 05/01/17 23:35 Room Air 05/01/17 20:00 Room Air 05/01/17 19:26 36.4 60 20 110/56 (74) 97 Room Air 05/01/17 16:00 Room Air 05/01/17 15:50 36.5 59 20 110/55 (73) 96 Room Air Lab Results: Results Past 24 Hours Test 05/01/17 14:21 05/01/17 16:13 05/01/17 19:54 05/02/17 06:11 Range/Units Sodium Level 130 132 136-145 mmol/L Potassium Level 3.9 3.7 3.5-5.1 mmol/L Chloride Level 95 97 98-107 mmol/L Carbon Dioxide Level 31 29 21-32 mmol/L Anion Gap 4.0 6.0 3-11 mmol/L Blood Urea Nitrogen 39 51 7-18 mg/dl Creatinine 1.82 1.68 0.60-1.40 mg/dl Est Creatinine Clear Calc Drug Dose 37.3 40.4 ml/min Estimated GFR () 41.2 45.4 Estimated GFR (Non- 35.5 39.1 BUN/Creatinine Ratio 21.5 30.2 10-20 Random Glucose 211 152 70-99 mg/dl Calcium Level 8.8 8.9 8.5-10.1 mg/dl Bedside Glucose 197 273 70-99 mg/dl White Blood Count 6.10 4.8-10.8 K/uL Red Blood Count 3.58 4.7-6.1 M/uL Hemoglobin 10.4 14.0-18.0 g/dL Hematocrit 31.5 42-52 % Mean Corpuscular Volume 88.0 80-100 fL Mean Corpuscular Hemoglobin 29.1 25-34 pg Mean Corpuscular Hemoglobin Concent 33.0 32-36 g/dl Platelet Count 154 130-400 K/uL Mean Platelet Volume 9.7 7.4-10.4 fL Neutrophils (%) (Auto) 74.9 % Lymphocytes (%) (Auto) 12.1 % Monocytes (%) (Auto) 9.5 % Eosinophils (%) (Auto) 2.3 % Basophils (%) (Auto) 0.7 % Neutrophils # (Auto) 4.57 1.4-6.5 K/uL Lymphocytes # (Auto) 0.74 1.2-3.4 K/uL Monocytes # (Auto) 0.58 0.11-0.59 K/uL Eosinophils # (Auto) 0.14 0-0.5 K/uL Basophils # (Auto) 0.04 0-0.2 K/uL RDW Standard Deviation 57.3 36.4-46.3 fL RDW Coefficient of Variation 17.6 11.5-14.5 % Immature Granulocyte % (Auto) 0.5 % Immature Granulocyte # (Auto) 0.03 0.00-0.02 K/uL Prothrombin Time 26.5 9.0-12.0 SECONDS Prothromb Time International Ratio 2.4 0.9-1.1 Magnesium Level 1.7 1.8-2.4 mg/dl Test 05/02/17 06:30 05/02/17 11:24 Range/Units Bedside Glucose 151 252 70-99 mg/dl
[2017-05-02] MEDS ORDERED: DMD20 PO (12:36)
--- NOTE | 2017-05-02 12:44 | Discharge Instructions ---
Discharge Instructions Date of Service May 02, 2017. Admission Reason for Admission: Hyponatremia Discharge Discharge Diagnosis / Problem: CHF, hyponatremia and hypokalemia due to duiretics, on coumadin Discharge Goals Goal(s): Improve disease control Activity Recommendations Activity Limitations: per Instructions/Follow-up section Lifting Limitations: until after follow-up appointment Exercise/Sports Limitations: until after follow-up appointment Shower/Bathe: no limitations . Instructions / Follow-Up Instructions / Follow-Up 77 year old Male with hx of chf, cad presents with hyponatremia.Having hyponatremia for some time and initially was thought to be hypovolemic and Lasix was stopped 4 days prior to admission.But gaining weight and Na 119 on admission. Initially received gentle fluids Na improved to 125 but was getting more sob. Fluids were stopped CXR showed b/l pleural effusions. Cardiology and Nephrology consulted. Hyponatremia thought to be from hypervolemia and was placed on Vv Lasix. Na improved to 133 today. sob improved. s/p right thoracocentesis on 04/30/17 and 1500ml taken out. Problems Acute on chronic systolic heart failure, Severe ischemic cardiomyopathy, LVEF 20 -25%, Probable scar mediated sustained ventricular tachycardia with resultant syncope, AICD discharge February 2017 -Large right pleural effusion and a small left pleural effusion, status post right thoracentesis on 04/30/2017, CXR on 05/01/17 Persistent small right pleural effusion with right greater than left basilar atelectasis. Decreased left pleural fluid, now trace -Transitioned from Lasix to oral Torsemide, 20 mg twice a day -Continue to avoid ACEI, ARB, and Aldactone. -Continue Toprol XL and amiodarone. -A-Fib rate controlled. On Coumadin. INR 2.4 on 05/02/17 Stage III chronic kidney disease -followed by nephrology consult as inpatient while on diuresis Electrolytes Serum Sodium and Serum Potassium affected by diuresis and at time fluid overload. Serum sodium 132 and serum potassium 3.7 on discharge day DM II -A1C 7.1 on 03/07/17 -continue home medications on discharge Discharge to home today Follow up appointments: 05/03/2017 6:15 PM [facility] 05/10/17 10:45 AM General Internal Medicine [facility] [place] Krystian Ellis 05/16 2:45 PM Cardiology, [facility] MonyGonzalo garcia Call your Primary Care doctor if any of the following symptoms or problems start or get worse: * Shortness of breath or difficulty breathing * Wake up at night short of breath * Chest pain * Cough * Swelling of your hands, feet, or legs * More fatigued or tired with your normal activity * Palpitations - sudden fast heart beats WEIGHT * Weigh yourself every morning after using the bathroom. * Use the same scale. * Wear the same amount of clothing. * Write your weight down on a chart. * Call your Primary Care doctor if you gain more than 2-3 pounds in 1-2 days. MEDICATIONS * Use this discharge instruction sheet for medication instructions. * Take your medications at the time your doctor ordered. * Do not skip a dose of your medicines. * If you miss a dose of medicine, take it as soon as possible, but DO NOT DOUBLE A DOSE. * Read your medicine information when you get home. * Know all of the side effects of your medicine. If in doubt, ask your pharmacist * Call your Primary Care doctor's office if you have any side effects. * Be sure all of your doctors know what medicine and herbs you take (including cold, flu, and herbal medicine). Take the following with you to your follow-up doctor appointments: * Weight Chart * Medication List * List of questions Do not drink excessive alcohol, beer or wine. Current Hospital Diet Patient's current hospital diet: Diabetes Type 2 Diet, Low Potassium Diet (2g K) , Low Sodium Diet (2gm Na) Discharge Diet Recommended Diet: AHA Diet (Heart Healthy), Low Sodium Diet (2gm Na) Procedures Procedures Performed: thoracentesis Pending Studies Studies pending at discharge: no Laboratory Results 05/02/17 06:11 Red Blood Count 3.58, Mean Corpuscular Volume 88.0, Mean Corpuscular Hemoglobin 29.1, Mean Corpuscular Hemoglobin Concent 33.0, Mean Platelet Volume 9.7, Neutrophils (%) (Auto) 74.9, Lymphocytes (%) (Auto) 12.1, Monocytes (%) (Auto) 9.5, Eosinophils (%) (Auto) 2.3, Basophils (%) (Auto) 0.7, Neutrophils # (Auto) 4.57, Lymphocytes # (Auto) 0.74, Monocytes # (Auto) 0.58, Eosinophils # (Auto) 0.14, Basophils # (Auto) 0.04 05/02/17 06:11 Test 04/27/17 14:40 04/27/17 15:24 04/27/17 17:04 04/28/17 15:43 Osmolality 267 mOsm/kg (280-300) Total Creatine Kinase 80 U/L (39-308) Creatine Kinase MB 2.8 ng/ml (0.5-3.6) Troponin I 0.020 ng/ml (0-0.045) Urine Color YELLOW Urine Appearance CLEAR (CLEAR) Urine pH 5.5 (4.5-7.5) Urine Specific [place] <= 1.005 (1.000-1.030) Urine Protein NEG (NEG) Urine Glucose (UA) NEG (NEG) Urine Ketones NEG (NEG) Urine Occult Blood TRACE (NEG) Urine Nitrite NEG (NEG) Urine Bilirubin NEG (NEG) Urine Urobilinogen NEG (NEG) Urine Leukocyte Esterase NEG (NEG) Urine RBC 0-4 /hpf (0-4) Urine WBC 1-5 /hpf (0-5) Urine Epithelial Cells 0-5 /lpf (0-5) Urine Bacteria NEG (NEG) Urine Osmolality 203 mOms/kg (500-800) Creatine Kinase MB Ratio (0-3.0) Pro-B-Type Natriuretic Peptide 83690 pg/ml (0-900) Test 04/30/17 09:29 05/02/17 06:11 05/02/17 11:24 Pleural Fluid Source RIGHT LUNG Pleural Fluid Color BIJU Pleural Fluid Appearance TURBID Pleural Fluid WBC 88 /uL Pleural Fluid RBC 3000 /uL Pleural Fluid pH 7.40 (7.3-7.4) Pleural Fluid Polynuclear WBCs % 12.9 % Pleural Fluid Mononuclear WBCs % 87.1 % Pleural Fluid Total Protein 3.6 g/dl Pleural Fluid LDH 70 IU Pleural Fluid Glucose 118 mg/dl Pleural Fluid Amylase 32 U/L Pleural Fluid Cholesterol 27 mg/dL White Blood Count 6.10 K/uL (4.8-10.8) Red Blood Count 3.58 M/uL (4.7-6.1) Hemoglobin 10.4 g/dL (14.0-18.0) Hematocrit 31.5 % (42-52) Mean Corpuscular Volume 88.0 fL (80-100) Mean Corpuscular Hemoglobin 29.1 pg (25-34) Mean Corpuscular Hemoglobin Concent 33.0 g/dl (32-36) Platelet Count 154 K/uL (130-400) Mean Platelet Volume 9.7 fL (7.4-10.4) Neutrophils (%) (Auto) 74.9 % Lymphocytes (%) (Auto) 12.1 % Monocytes (%) (Auto) 9.5 % Eosinophils (%) (Auto) 2.3 % Basophils (%) (Auto) 0.7 % Neutrophils # (Auto) 4.57 K/uL (1.4-6.5) Lymphocytes # (Auto) 0.74 K/uL (1.2-3.4) Monocytes # (Auto) 0.58 K/uL (0.11-0.59) Eosinophils # (Auto) 0.14 K/uL (0-0.5) Basophils # (Auto) 0.04 K/uL (0-0.2) RDW Standard Deviation 57.3 fL (36.4-46.3) RDW Coefficient of Variation 17.6 % (11.5-14.5) Immature Granulocyte % (Auto) 0.5 % Immature Granulocyte # (Auto) 0.03 K/uL (0.00-0.02) Prothrombin Time 26.5 SECONDS (9.0-12.0) Prothromb Time International Ratio 2.4 (0.9-1.1) Anion Gap 6.0 mmol/L (3-11) Est Creatinine Clear Calc Drug Dose 40.4 ml/min Estimated GFR () 45.4 Estimated GFR (Non- 39.1 BUN/Creatinine Ratio 30.2 (10-20) Calcium Level 8.9 mg/dl (8.5-10.1) Magnesium Level 1.7 mg/dl (1.8-2.4) Bedside Glucose 252 mg/dl (70-99) Date/Time Source Procedure Growth Status 04/30/17 09:29 Pleural Fluid (Thoracentesis) Right Acid Fast Stain - Final Resulted 04/30/17 09:29 Pleural Fluid (Thoracentesis) Right Mycobacterial Culture Pending Resulted Hemoglobin A1c Test 03/07/17 03:36 Range/Units Estimated Average Glucose 157 mg/dl Hemoglobin A1c 7.1 H 4.5-5.6 % Medical Emergencies . Who to Call and When: Call 911 or go to the Emergency Room if: * If at any time you feel your situation is an emergency * You have tightness or pain in your chest that does not go away with rest or Nitroglycerin * You are very short of breath even with rest . Non-Emergent Contact Non-Emergency issues call your: Primary Care Provider, Freezer Person Call Non-Emergent contact if: you have any medication questions . . "Provider Documentation" section prepared by David Swenson. . VTE Core Measure Inpt VTE Proph given/why not?: Warfarin (Coumadin)
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
[2017-05-02 13:16] VITALS: BP 99/50; PULSE 61; TEMP 36.4; O2SAT 98
== END 2017-05-02 14:25 | disposition home or self-care (01) | DRG 292 ==
LOC: C.EDB 12:44 → C.2E 17:13 → ENRESERV 17:22
PROVIDERS: ADMIT Internal Medicine; ATTEND Hospitalist
PROC: 0W993ZZ Drainage of Right Pleural Cavity, Percutaneous Approach (ICD-10-PCS; principal; 2017-04-30)
DX: I50.23 Acute on chronic systolic (congestive) heart failure (principal); E87.1 Hypo-osmolality and hyponatremia; J90 Pleural effusion, not elsewhere classified; I25.10 Atherosclerotic heart disease of native coronary artery without angina pectoris; E11.9 Type 2 diabetes mellitus without complications; E78.5 Hyperlipidemia, unspecified; E87.5 Hyperkalemia; I11.0 Hypertensive heart disease with heart failure; I48.91 Unspecified atrial fibrillation; I25.5 Ischemic cardiomyopathy; Z87.891 Personal history of nicotine dependence; Z79.82 Long term (current) use of aspirin; Z79.01 Long term (current) use of anticoagulants; Z82.49 Family history of ischemic heart disease and other diseases of the circulatory system; Z83.3 Family history of diabetes mellitus

== ENCOUNTER 2019-05-01 21:14 | Inpatient (IN) ==
[2019-05-01 21:59] LABS: Basophils # (auto) 0.01 K/uL (0-0.2); Basophils % (auto) 0.2 %; Eosinophils # (auto) 0.04 K/uL (0-0.5); Eosinophils % (auto) 0.7 %; Hematocrit (blood only) 29.4 % (42-52); Hemoglobin 10.4 g/dL (14.0-18.0); Immature Granulocytes # (auto) 0.04 K/uL (0.00-0.02); Immature Granulocytes % (auto) 0.7 %; Lymphocytes # (auto) 0.54 K/uL (1.2-3.4); Mean Corpuscular Hemoglobin 32.9 pg (25-34); Mean Corpuscular Hgb Conc 35.4 g/dL (32-36); Mean Platelet Volume 10.6 fL (7.4-10.4); Monocytes # (auto) 0.51 K/uL (0.11-0.59); Monocytes % (auto) 9.4 %; Neutrophils # (auto) 4.26 K/uL (1.4-6.5); Platelet Count 148 K/uL (130-400); RDW Coefficient of Variation 14.4 % (11.5-14.5); RDW Standard Deviation 48.9 fL (36.4-46.3); Red Blood Count 3.16 M/uL (4.7-6.1)
--- NOTE | 2019-05-01 22:08 | XRay Report ---
XR chest 1V portable CLINICAL HISTORY: 79 years-old Male presenting with Chest Pain. TECHNIQUE: Portable upright AP view of the chest was obtained. COMPARISON: 04/28/2017. FINDINGS: Left subclavian implanted cardiac defibrillator with leads to the right atrium and right ventricular apex. Median sternotomy wires and mediastinal surgical clips. Coronary artery stent or coronary arter y calcification noted. Several external leads overlie the thorax. Atherosclerosis of the aortic arch. Cardiac silhouette may be mildly enlarged. Heterogeneity of lung parenchyma with patchy nodular opac ities at the lung bases. Trace right pleural effusion may be present. No large pneumothorax. Degenera tive changes of the thoracic spine. Calcification in the region of the right shoulder is of uncertain etiology. Upper abdomen normal. IMPRESSION: 1. Nodular opacities at the lung bases. These are indeterminate. This could represent atelectasis, s carring, aspiration, or focal nodules. Follow-up recommended. 2. The presence of parenchymal heterogeneity could suggest underlying chronic lung disease. 3. Trace right pleural effusion. 4. Borderline cardiomegaly. Electronically signed by: Miguel Carranza M.D. 05/01/2019 10:07 PM
[2019-05-01 22:25] LABS: Albumin Globulin Ratio 0.7 (0.9-2); Albumin Level 2.6 gm/dl (3.4-5.0); BUN Creatinine Ratio 27.6 (10-20); Bilirubin,Total 0.7 mg/dl (0.2-1); Calcium 8.2 mg/dl (8.5-10.1); Creatinine Clr Calc Pharmacy 32.4 ml/min; Est GFR (African American) 38.1; Est GFR (Non-African American) 32.8; Globulin 3.8 gm/dl (2.5-4.0); Magnesium 1.7 mg/dl (1.8-2.4); Potassium 4.6 mmol/L (3.5-5.1); Total Protein 6.4 gm/dl (6.4-8.2); Troponin I 0.02 ng/ml (0-0.045)
[2019-05-01 22:30] LABS: INR 3.5 (0.9-1.1); Partial Thromboplastin Ratio 1.9; Prothrombin Time 32.6 Seconds (9.0-12.0)
[2019-05-01] MEDS ORDERED: MAGNESIUM SULFATE / D5W 1 GM/100 ML BAG IV ONE (22:39)
[2019-05-01] MEDS ORDERED: SODIUM CHLORIDE 0.9% 1000ML 500 ML IV ONE (22:39)
[2019-05-01 22:49] LABS: Partial Thromboplastin Time 51.6 Seconds (21.0-31.0)
--- NOTE | 2019-05-01 22:51 | Emergency Department Note ---
Entered by Devorah Navarrete acting as a scribe for History of Present Illness General Chief complaint: Cardiac Assessment Time Seen by Provider: 05/01/19 21:16 Source: patient History of Present Illness Onset (ago): hour(s) (prior to arrival) Location: chest (cardiac assessment) Pain Consistency: + other (episode) Exacerbated By: + other (pacemaker and defibrillator ) Associated symptoms: + denies other symptoms (abdominal pain), + shortness of breath and + other (tiredness); no nausea/vomiting The patient is a 79 year old M who presents to the Emergency Room with complaints of an episode of a cardiac assessment that occurred prior to arrival. The patient states that his family had company over today. He notes that after everyone left, he decided to watch some TV before going to sleep. He states that when he was sitting on his couch he heard a beeping sound. He adds that he realized that the beeping sound was coming from his medical bracelet for a pacemaker and a defibrillator. He states that the pacemaker and defibrillator were placed at [facility]. He denies doing anything out of the ordinary today. He notes that he is currently experiencing tiredness and shortness of breath. He denies that he is currently experiencing abdominal pain and nausea. Home Medications Home Medications Medication Instructions Recorded Confirmed Type amiodarone 200 mg PO BID 05/01/19 05/01/19 History aspirin 81 mg PO DAILY 05/01/19 05/01/19 History atorvastatin 40 mg PO DAILY 05/01/19 05/01/19 History cholecalciferol (vitamin D3) 2,000 unit PO DAILY 05/01/19 05/01/19 History [Vitamin D3] folic acid 0.4 mg PO DAILY 05/01/19 05/01/19 History glipizide 20 mg PO QAM 05/01/19 05/01/19 History iron,carbonyl-vitamin C [Vitron-C] 1 tab PO BID 05/01/19 05/01/19 History isosorbide mononitrate 60 mg PO DAILY 05/01/19 05/01/19 History magnesium chloride 128 mg PO BID 05/01/19 05/01/19 History metoprolol succinate 75 mg PO HS 05/01/19 05/01/19 History metoprolol succinate 100 mg PO QAM 05/01/19 05/01/19 History repaglinide 2 mg PO QDD 05/01/19 05/01/19 History repaglinide 4 mg PO DAILY@0800,1200 05/01/19 05/01/19 History torsemide 10 mg PO Q2D 05/01/19 05/01/19 History torsemide 20 mg PO Q2D 05/01/19 05/01/19 History warfarin 5 mg PO DAILY 05/01/19 05/01/19 History Allergies Allergy/AdvReac Type Severity Reaction Status Date / Time clopidogrel Allergy Unknown RASH,EDEMA Verified 05/01/19 21:54 Past Med/Surg History Medical History (Updated 05/01/19 @ 23:50 by Devorah Navarrete) Coronary artery disease (Chronic) "s/p CABG x 3 in 1996, stent to BRANDON in 2011" Diabetes mellitus, type II (Chronic) Diverticula of colon (Chronic) Dyslipidemia (Chronic) History of adenomatous polyp of colon (Chronic) History of DVT (deep vein thrombosis) (Chronic) History of pneumothorax (Chronic) Hyperkalemia (Acute) Hypertension (Chronic) Hyponatremia (Acute) Systolic CHF (Chronic) "2/2 Ischemic cardiomyopathy " V tach (Chronic) "02/2017. 2/2 Failed anti-tachycardia pacing. " On 03/06/17 20:08 Fabienne Miller wrote "02/2017. 2/2 Failed anti-tachycardia pacing. " Surgical History (Updated 05/01/19 @ 23:42 by Devorah Navarrete) H/O parathyroidectomy (Chronic) Status post coronary artery bypass grafting (Chronic) Status post coronary artery stent placement (Chronic) Status post placement of cardiac pacemaker (Chronic) Social History (Updated 05/01/19 @ 23:43 by Devorah Navarrete) Preferred Language: Portuguese Feels Safe at Home: Yes Smoking Status: Former smoker Review of Systems See HPI for pertinent positives & negatives. and A total of 10 systems reviewed and were otherwise negative Physical Exam Vital Signs Vital Signs - 24 hr 05/01/19 21:35 05/01/19 21:54 05/01/19 22:50 Temperature 36.6 C Temperature Source Oral Pulse Rate 60 60 Pulse Rate [Right Finger] 57 L Respiratory Rate 20 18 Respiratory Effort / Characteristics Non-Labored Respiratory Depth Normal Blood Pressure 111/58 L Blood Pressure [Right Arm] 126/57 L Blood Pressure Mean 75 Blood Pressure Mean [Right Arm] 80 Blood Pressure Position Lying Pulse Oximetry 100 100 100 Oxygen Delivery Method Room Air Room Air Room Air Sepsis Recent Fever Within 48 Hours No Sepsis Action Taken by Nursing No Action Required GENERAL: Patient is awake and alert. He is not anxious appearing. EYES: The conjunctivae are clear. The pupils are round and reactive. EARS, NOSE, MOUTH AND THROAT: The nose is without any evidence of any deformity. Mucous membranes are moist tongue is midline NECK: The neck is nontender and supple. RESPIRATORY: Normal respiratory effort is noted there is no evidence of wheezing rhonchi or rales CARDIOVASCULAR: Regular rate and rhythm noted there no murmurs rubs or gallops normal S1 normal S2 GASTROINTESTINAL: The abdomen is soft. Abdomen is nontender MUSCULOSKELETAL/EXTREMITIES: There is no evidence of gross deformity full range of motion is noted in the hips and shoulders SKIN: There is no obvious evidence of any rash. Pedal edema was noted bilaterally. NEUROLOGIC: Patient is awake and oriented to person place and situation. Course Course 2115: The patient was evaluated in room B5. A complete history and physical exam was performed. 2: I reviewed the patient's case with Dr. Christo Trinh, [facility]. He will evaluate the patient for further management. Administered Medications Discontinued Medications Sodium Chloride (Nss 1000ml) 500 mls @ 999 mls/hr IV .Q31M ONE Stop: 05/01/19 23:09 Last Infusion: 05/01/19 23:26 Dose: 0 mls/hr Documented by: [id number] Admin: 05/01/19 22:53 Dose: 999 mls/hr Documented by: [id number] Magnesium Sulfate/Dextrose (Magnesium Sulfate / D5w) 1 gm in 100 mls @ 100 mls/ hr IV ONE ONE Stop: 05/01/19 23:38 Last Infusion: 05/02/19 00:14 Dose: 0 mls/hr Documented by: [id number] Admin: 05/01/19 22:53 Dose: 100 mls/hr Documented by: [id number] Magnesium Sulfate/Dextrose (Magnesium Sulfate / D5w) 1 gm in 100 mls @ 100 mls/hr IV NOW STA Stop: 05/02/19 00:27 Last Admin: 05/01/19 23:42 Dose: 100 mls/hr Documented by: [id number] Insulin Glargine (Lantus Solostar Pen) 10 units SC NOW STA Stop: 05/01/19 23:24 Last Admin: 05/01/19 23:43 Dose: 10 units Documented by: [id number] Cosigned by: [id number] Medical Decision Making Differential Diagnosis Differential diagnosis: Etiologies such as premature contractions, electrolyte abnormality, cardiac dysrhythmia, thyroid dysfunction, pulmonary embolism, infection, gastrointestinal, as well as others were entertained. Medical Records Attestation: I reviewed the patient's medical records. Home Medications Current Medication List: was personally reviewed by me Laboratory Data Attestation: I reviewed the patient's lab results. Result diagrams: 05/01/19 21:48 05/01/19 21:48 Lab Results 05/01/19 05/01/19 05/01/19 Range/Units 21:48 21:48 21:48 WBC 5.40 (4.8-10.8) K/uL RBC 3.16 L (4.7-6.1) M/uL Hgb 10.4 L (14.0-18.0) g/dL Hct 29.4 L (42-52) % MCV 93.0 (80-100) fL MCH 32.9 (25-34) pg MCHC 35.4 (32-36) g/dL RDW Std Deviation 48.9 H (36.4-46.3) fL RDW Coeff of Ash 14.4 (11.5-14.5) % Plt Count 148 (130-400) K/uL MPV 10.6 H (7.4-10.4) fL Immature Gran % (Auto) 0.7 % Neut % (Auto) 79.0 % Lymph % (Auto) 10.0 % [place] % (Auto) 9.4 % Eos % (Auto) 0.7 % Baso % (Auto) 0.2 % Immature Gran # (Auto) 0.04 H (0.00-0.02) K/uL Neut # (Auto) 4.26 (1.4-6.5) K/uL Lymph # (Auto) 0.54 L (1.2-3.4) K/uL [place] # (Auto) 0.51 (0.11-0.59) K/uL Eos # (Auto) 0.04 (0-0.5) K/uL Baso # (Auto) 0.01 (0-0.2) K/uL PT 32.6 H (9.0-12.0) Seconds INR 3.5 H (0.9-1.1) APTT 51.6 H* (21.0-31.0) Seconds PTT Ratio 1.9 Sodium 121 L (136-145) mmol/L Potassium 4.6 (3.5-5.1) mmol/L Chloride 88 L (98-107) mmol/L Carbon Dioxide 26 (21-32) mmol/L Anion Gap 7.0 (3-11) BUN 53 H (7-18) mg/dl Creatinine 1.92 H (0.6-1.4) mg/dl Est Cr Clr Drug Dosing 32.4 ml/min Est GFR ( Amer) 38.1 Est GFR (Non-Af Amer) 32.8 BUN/Creatinine Ratio 27.6 H (10-20) Glucose 291 H (70-99) mg/dl POC Glucose (70-99) Osmolality (280-300) mOsm/kg Calcium 8.2 L (8.5-10.1) mg/dl Magnesium 1.7 L (1.8-2.4) mg/dl Total Bilirubin 0.7 (0.2-1) mg/dl AST 67 H (15-37) U/L ALT 88 H (12-78) U/L Alkaline Phosphatase 105 (45-117) U/L Troponin I 0.020 (0-0.045) ng/ml Total Protein 6.4 (6.4-8.2) gm/dl Albumin 2.6 L (3.4-5.0) gm/dl Globulin 3.8 (2.5-4.0) gm/dl Albumin/Globulin Ratio 0.7 L (0.9-2) Lipase 173 (73-393) U/L TSH 2.320 (0.300-4.500) uIu/ml 05/01/19 05/01/19 Range/Units 21:51 23:46 WBC (4.8-10.8) K/uL RBC (4.7-6.1) M/uL Hgb (14.0-18.0) g/dL Hct (42-52) % MCV (80-100) fL MCH (25-34) pg MCHC (32-36) g/dL RDW Std Deviation (36.4-46.3) fL RDW Coeff of Ash (11.5-14.5) % Plt Count (130-400) K/uL MPV (7.4-10.4) fL Immature Gran % (Auto) % Neut % (Auto) % Lymph % (Auto) % [place] % (Auto) % Eos % (Auto) % Baso % (Auto) % Immature Gran # (Auto) (0.00-0.02) K/uL Neut # (Auto) (1.4-6.5) K/uL Lymph # (Auto) (1.2-3.4) K/uL [place] # (Auto) (0.11-0.59) K/uL Eos # (Auto) (0-0.5) K/uL Baso # (Auto) (0-0.2) K/uL PT (9.0-12.0) Seconds INR (0.9-1.1) APTT (21.0-31.0) Seconds PTT Ratio Sodium (136-145) mmol/L Potassium (3.5-5.1) mmol/L Chloride (98-107) mmol/L Carbon Dioxide (21-32) mmol/L Anion Gap (3-11) BUN (7-18) mg/dl Creatinine (0.6-1.4) mg/dl Est Cr Clr Drug Dosing ml/min Est GFR ( Amer) Est GFR (Non-Af Amer) BUN/Creatinine Ratio (10-20) Glucose (70-99) mg/dl POC Glucose 297 H (70-99) Osmolality 285 (280-300) mOsm/kg Calcium (8.5-10.1) mg/dl Magnesium (1.8-2.4) mg/dl Total Bilirubin (0.2-1) mg/dl AST (15-37) U/L ALT (12-78) U/L Alkaline Phosphatase (45-117) U/L Troponin I (0-0.045) ng/ml Total Protein (6.4-8.2) gm/dl Albumin (3.4-5.0) gm/dl Globulin (2.5-4.0) gm/dl Albumin/Globulin Ratio (0.9-2) Lipase (73-393) U/L TSH (0.300-4.500) uIu/ml Imaging Data Radiologist's Impression: Radiology results as stated below per my review and the radiologist's interpretation: XR chest 1V portable CLINICAL HISTORY: 79 years-old Male presenting with Chest Pain. TECHNIQUE: Portable upright AP view of the chest was obtained. COMPARISON: 04/28/2017. FINDINGS: Left subclavian implanted cardiac defibrillator with leads to the right atrium and right ventricular apex. Median sternotomy wires and mediastinal surgical clips. Coronary artery stent or coronary artery calcification noted. Several external leads overlie the thorax. Atherosclerosis of the aortic arch. Cardiac silhouette may be mildly enlarged. Heterogeneity of lung parenchyma with patchy nodular opacities at the lung bases. Trace right pleural effusion may be present. No large pneumothorax. Degenerative changes of the thoracic spine. Calcification in the region of the right shoulder is of uncertain etiology. Upper abdomen normal. IMPRESSION: 1. Nodular opacities at the lung bases. These are indeterminate. This could represent atelectasis, scarring, aspiration, or focal nodules. Follow-up recommended. 2. The presence of parenchymal heterogeneity could suggest underlying chronic lung disease. 3. Trace right pleural effusion. 4. Borderline cardiomegaly. Electronically signed by: Miguel Carranza M.D. 05/01/2019 10:07 PM ECG Data Attestation: I personally reviewed and interpreted this ECG as follows: Indication: + palpitations Rate (beats per minute): 60 Rhythm: + other (atrial paced rhythm) ECG Intervals/blocks: + First degree AV block and + Left bundle branch block ECG Findings: + Other (no [place] beats) Comparison ECG Date: from (05/01/17) Change: no significant change Blood Pressure Blood Pressure Findings: Low blood pressure Blood Pressure Disposition: further management by hospitalist ZAIDA Marquez The patient is a 79-year-old male who presented to the emergency department for an evaluation of possible pacemaker malfunction. The patient heard a noise coming from his pacemaker. He did not have any specific complaints but he knows his pacemaker has been malfunctioning recently. The patient was found to have an atrial paced rhythm however there was a prolonged NH interval. We had the pacemaker interrogated and it does appear to be malfunctioning to some degree but still appears to be capturing just at a lower rate with significant impedance between the ventricular wire. The patient was also found to have hyponatremia. The patient was treated with a small fluid bolus. I discussed patient's laboratory and radiographic studies with him. Because of his symptoms I also discussed his case with the on-call [facility] hospitalist group. They have agreed to evaluate the patient in the emergency department for further management disposition. Impression & Plan Pacemaker malfunction, Hyponatremia, Hypomagnesemia Discharge Plan Visit Data Chief Complaint: Cardiac Assessment ED Provider: Lance Chan Discharge Problem: Pacemaker malfunction, Hyponatremia, Hypomagnesemia Patient Disposition: Admitted As Inpatient Forms Stand Alone Forms: My [facility] Prescriptions Prescriptions: No Action atorvastatin 40 mg tablet 40 mg PO DAILY RF: 0 repaglinide 2 mg tablet 4 mg PO DAILY@0800,1200 RF: 0 repaglinide 2 mg tablet 2 mg PO QDD RF: 0 torsemide 20 mg tablet 20 mg PO Q2D RF: 0 torsemide 20 mg tablet 10 mg PO Q2D RF: 0 amiodarone 200 mg tablet 200 mg PO BID RF: 0 metoprolol succinate 50 mg Tablet Extended Release 24 Hr 100 mg PO QAM RF: 0 metoprolol succinate 50 mg Tablet Extended Release 24 Hr 75 mg PO HS RF: 0 glipizide 10 mg tablet 20 mg PO QAM RF: 0 folic acid 400 mcg Tablet 0.4 mg PO DAILY RF: 0 aspirin 81 mg Tablet,Delayed Release (Dr/Ec) 81 mg PO DAILY RF: 0 isosorbide mononitrate 60 mg tablet extended release 24 hr 60 mg PO DAILY RF: 0 warfarin 5 mg tablet 5 mg PO DAILY RF: 0 cholecalciferol (vitamin D3) [Vitamin D3] 2,000 unit Tablet 2,000 unit PO DAILY RF: 0 magnesium chloride 64 mg Tablet,Delayed Release (Dr/Ec) 128 mg PO BID RF: 0 Vitron-C 65 mg iron- 125 mg Tablet,Delayed Release (Dr/Ec) 1 tab PO BID RF: 0 Referrals Referrals: Krystian Ellis DO [Primary Care Provider] - Discharge Problem: Pacemaker malfunction Qualifiers: Encounter type: initial encounter Qualified Code(s): T82.111A - Breakdown (mechanical) of cardiac pulse generator (battery), initial encounter The scribe's documentation has been prepared under my direction and personally reviewed by me in its entirety. I confirm that the note above accurately reflects all work, treatment, procedures, and medical decision making performed by me.
[2019-05-01] MEDS ORDERED: INSULIN GLARGINE SOLOSTAR 100 UNITS/ML 3 ML PEN SC STA (23:23)
[2019-05-01] MEDS ORDERED: MAGNESIUM SULFATE / D5W 1 GM/100 ML BAG IV STA (23:28)
[2019-05-02 00:11] LABS: Thyroid Stimulating Hormone 2.32 uIu/ml (0.300-4.500)
--- NOTE | 2019-05-02 01:23 | History & Physical Report ---
Date of Service May 02, 2019 Assessment & Plan (1) Hyponatremia: Acute on chronic hyponatremia ARF on CRI chronic systolic heart failure secondary to ischemic cardiomyopathy (EF 20-25%, TTE 2017), patient euvolemic to dry CAD status post CABG/stent Transient PPM beeping, rule out pacemaker dysfunction A. fib status post PPM on Coumadin, paced rhythm, INR slightly supratherapeutic hypertension, stable hyperlipidemia on statin Rx hyperparathyroidism status post surgery DM 2 on oral medications, well-controlled as of recent outpatient hemoglobin A1c of 7.1, April 2019 chronic anemia secondary to CKD, hemoglobin at baseline past tobacco abuse. PCU Pacemaker interrogation (ER provider already in touch with [employer] at the ER.) Cardiology consult RE transient PPM beeping Careful correction of sodium, hold additional IVF until repeat sodium level drawn, fluid restriction Check UA, monitor renal function Nephrology consult RE ARF on CRI, acute on chronic hyponatremia Hold home diuretic until creatinine at baseline and patient evaluated by Nephrology. Basal insulin, ISS BG goal [id number], carb count coverage DVT prophylaxis. Coumadin INR goal between 2 and 3 Full code Patient's requesting updates from providers. Ms. Angelita Bhagat, contact #[phone]. History of Present Illness Chief Complaint: Pacemaker beep Primary Care Provider: Krystain Ellis, History obtained from patient, family, and records. Medical history significant for chronic systolic heart failure secondary to ischemic cardiomyopathy (EF 20-25%, TTE 2017), CAD status post CABG/ stent,, A. fib status post PPM on Coumadin, SVT status post ablation, hypertension, hyperlipidemia, hyperparathyroidism status post surgery, DM 2 on oral medications, CRI (baseline creatinine 1.4-1.5), chronic hyponatremia, chronic anemia (baseline hemoglobin of 10), past tobacco abuse. Recent confinement April 2017 for decompensated heart failure and hyponatremia. Recommended fluid restriction of about 1200 mL/40 ounces as per patient's . Patient felt full after Thanksgiving lunch yesterday. When he sat down he experienced transient epigastric discomfort like GI upset followed by transient beeping of pacemaker. No actual chest pain, S OB. Patient brought by family to the emergency room. NSS given at the ER. 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 Allergies Allergy/AdvReac Type Severity Reaction Status Date / Time clopidogrel Allergy Unknown RASH,EDEMA Verified 05/01/19 21:54 Home Medications Home Medications Medication Instructions Recorded Confirmed Type amiodarone 200 mg PO BID 05/01/19 05/01/19 History aspirin 81 mg PO DAILY 05/01/19 05/01/19 History atorvastatin 40 mg PO DAILY 05/01/19 05/01/19 History cholecalciferol (vitamin D3) 2,000 unit PO DAILY 05/01/19 05/01/19 History [Vitamin D3] folic acid 0.4 mg PO DAILY 05/01/19 05/01/19 History glipizide 20 mg PO QAM 05/01/19 05/01/19 History iron,carbonyl-vitamin C [Vitron-C] 1 tab PO BID 05/01/19 05/01/19 History isosorbide mononitrate 60 mg PO DAILY 05/01/19 05/01/19 History magnesium chloride 128 mg PO BID 05/01/19 05/01/19 History metoprolol succinate 75 mg PO HS 05/01/19 05/01/19 History metoprolol succinate 100 mg PO QAM 05/01/19 05/01/19 History repaglinide 2 mg PO QDD 05/01/19 05/01/19 History repaglinide 4 mg PO DAILY@0800,1200 05/01/19 05/01/19 History torsemide 10 mg PO Q2D 05/01/19 05/01/19 History torsemide 20 mg PO Q2D 05/01/19 05/01/19 History warfarin 5 mg PO DAILY 05/01/19 05/01/19 History Past Med/Surg History Medical History (Updated 05/01/19 @ 23:50 by Devorah Navarrete) Coronary artery disease (Chronic) "s/p CABG x 3 in 1996, stent to BRANDON in 2011" Diabetes mellitus, type II (Chronic) Diverticula of colon (Chronic) Dyslipidemia (Chronic) History of adenomatous polyp of colon (Chronic) History of DVT (deep vein thrombosis) (Chronic) History of pneumothorax (Chronic) Hyperkalemia (Acute) Hypertension (Chronic) Hyponatremia (Acute) Systolic CHF (Chronic) "2/2 Ischemic cardiomyopathy " V tach (Chronic) "02/2017. 2/2 Failed anti-tachycardia pacing. " On 03/06/17 20:08 Fabienne Miller wrote "02/2017. 2/2 Failed anti-tachycardia pacing. " Surgical History (Updated 05/01/19 @ 23:42 by Devorah Navarrete) H/O parathyroidectomy (Chronic) Status post coronary artery bypass grafting (Chronic) Status post coronary artery stent placement (Chronic) Status post placement of cardiac pacemaker (Chronic) Social History (Updated 05/01/19 @ 23:43 by Devorah Navarrete) Preferred Language: Malay Communication Ability: Effective Beliefs That Will Affect Care: None Current Living Situation: Spouse Feels Safe at Home: Yes Safety Concerns: Feels Safe At This Time Smoking Status: Former smoker Hx Alcohol Use: No Hx Substance Use: No Review of Systems Review of Systems: As per HPI, all 10 systems reviewed, all other ROS negative Physical Exam Physical Exam: GENERAL: Comfortable, slightly dysarthric (chronic ), no respiratory distress SKIN: Pallor, warm HEENT: Pale palpebral conjunctivae, no ptosis, dry buccal mucosa NECK : Supple, no tenderness CHEST : Decreased breath sounds, occasional expiratory wheezes, no tenderness HEART : Diminished S1-S2, systolic murmur ABDOMEN: Some distention, nontender EXTREMITIES : No LE swelling/tenderness, no other conspicuous deformities noted NEUROLOGIC : Coherent, no facial asymmetry, no other gross focality Results & Data Vital Signs (Past 12 Hours) Vital Signs Temp Pulse Pulse Resp BP BP Pulse Ox 05/01/19 22:50 57 L 18 126/57 L 100 05/01/19 21:54 60 100 05/01/19 21:35 36.6 C 60 20 111/58 L 100 Laboratory Results Laboratory Results WBC 5.40 K/uL (4.8-10.8) 05/01/19 21:48 RBC 3.16 M/uL (4.7-6.1) L 05/01/19 21:48 Hgb 10.4 g/dL (14.0-18.0) L 05/01/19 21:48 Hct 29.4 % (42-52) L 05/01/19 21:48 MCV 93.0 fL (80-100) 05/01/19 21:48 MCH 32.9 pg (25-34) 05/01/19 21:48 MCHC 35.4 g/dL (32-36) 05/01/19 21:48 RDW Std Deviation 48.9 fL (36.4-46.3) H 05/01/19 21:48 RDW Coeff of Ash 14.4 % (11.5-14.5) 05/01/19 21:48 Plt Count 148 K/uL (130-400) 05/01/19 21:48 MPV 10.6 fL (7.4-10.4) H 05/01/19 21:48 Immature Gran % (Auto) 0.7 % 05/01/19 21:48 Neut % (Auto) 79.0 % 05/01/19 21:48 Lymph % (Auto) 10.0 % 05/01/19 21:48 [place] % (Auto) 9.4 % 05/01/19 21:48 Eos % (Auto) 0.7 % 05/01/19 21:48 Baso % (Auto) 0.2 % 05/01/19 21:48 Immature Gran # (Auto) 0.04 K/uL (0.00-0.02) H 05/01/19 21:48 Neut # (Auto) 4.26 K/uL (1.4-6.5) 05/01/19 21:48 Lymph # (Auto) 0.54 K/uL (1.2-3.4) L 05/01/19 21:48 [place] # (Auto) 0.51 K/uL (0.11-0.59) 05/01/19 21:48 Eos # (Auto) 0.04 K/uL (0-0.5) 05/01/19 21:48 Baso # (Auto) 0.01 K/uL (0-0.2) 05/01/19 21:48 PT 32.6 Seconds (9.0-12.0) H 05/01/19 21:48 INR 3.5 (0.9-1.1) H 05/01/19 21:48 APTT 51.6 Seconds (21.0-31.0) H* 05/01/19 21:48 PTT Ratio 1.9 05/01/19 21:48 Sodium 121 mmol/L (136-145) L 05/01/19 21:48 Potassium 4.6 mmol/L (3.5-5.1) 05/01/19 21:48 Chloride 88 mmol/L (98-107) L 05/01/19 21:48 Carbon Dioxide 26 mmol/L (21-32) 05/01/19 21:48 Anion Gap 7.0 (3-11) 05/01/19 21:48 BUN 53 mg/dl (7-18) H 05/01/19 21:48 Creatinine 1.92 mg/dl (0.6-1.4) H 05/01/19 21:48 Est Cr Clr Drug Dosing 32.4 ml/min 05/01/19 21:48 Est GFR ( Amer) 38.1 05/01/19 21:48 Est GFR (Non-Af Amer) 32.8 05/01/19 21:48 BUN/Creatinine Ratio 27.6 (10-20) H 05/01/19 21:48 Glucose 291 mg/dl (70-99) H 05/01/19 21:48 POC Glucose 297 (70-99) H 05/01/19 23:46 Osmolality 285 mOsm/kg (280-300) 05/01/19 21:51 Calcium 8.2 mg/dl (8.5-10.1) L 05/01/19 21:48 Magnesium 1.7 mg/dl (1.8-2.4) L 05/01/19 21:48 Total Bilirubin 0.7 mg/dl (0.2-1) 05/01/19 21:48 AST 67 U/L (15-37) H 05/01/19 21:48 ALT 88 U/L (12-78) H 05/01/19 21:48 Alkaline Phosphatase 105 U/L (45-117) 05/01/19 21:48 Troponin I 0.020 ng/ml (0-0.045) 05/01/19 21:48 Total Protein 6.4 gm/dl (6.4-8.2) 05/01/19 21:48 Albumin 2.6 gm/dl (3.4-5.0) L 05/01/19 21:48 Globulin 3.8 gm/dl (2.5-4.0) 05/01/19 21:48 Albumin/Globulin Ratio 0.7 (0.9-2) L 05/01/19 21:48 Lipase 173 U/L (73-393) 05/01/19 21:48 TSH 2.320 uIu/ml (0.300-4.500) 05/01/19 21:48 Diagnostic Findings Chest x-ray : 1. Nodular opacities at the lung bases. These are indeterminate. This could represent atelectasis, scarring, aspiration, or focal nodules. Follow-up recommended. 2. The presence of parenchymal heterogeneity could suggest underlying chronic lung disease. 3. Trace right pleural effusion. 4. Borderline cardiomegaly. EKG as per my interpretation : Rate 60, paced rhythm
[2019-05-02] MEDS ORDERED: GLUCOSE 40% GEL 15 GM TUBE PO PRN (02:19)
[2019-05-02] MEDS ORDERED: OXYCODONE HCL IR 5 MG TAB (IMMEDIATE RELEASE) PO PRN (02:19)
[2019-05-02] MEDS ORDERED: PROMETHAZINE HCL 12.5 MG in SODIUM CHLORIDE 0.9% 50 ML IV PRN (02:19)
[2019-05-02] MEDS ORDERED: ACETAMINOPHEN 325 MG TAB PO PRN (02:19)
[2019-05-02] MEDS ORDERED: GLUCAGON FOR INJ 1 MG VIAL SQ PRN (02:19)
[2019-05-02] MEDS ORDERED: DEXTROSE 50% 50 ML SYRINGE IV PRN (02:19)
[2019-05-02] MEDS ORDERED: GLUCOSE 10 TABS/TUBE PO PRN (02:19)
[2019-05-02] MEDS ORDERED: CARBOHYDRATES FOR HYPOGLYCEMIA PO PRN (02:19)
[2019-05-02] MEDS ORDERED: NITROGLYCERIN SL 0.4 MG/TAB TAB SL PRN (02:19)
[2019-05-02] MEDS: INSULIN ASPART 100 UNITS/ML 3 ML PEN SC SCH ×5 (02:49→20:54)
[2019-05-02 05:28] LABS: Basophils # (auto) 0.01 K/uL (0-0.2); Basophils % (auto) 0.2 %; Eosinophils # (auto) 0.05 K/uL (0-0.5); Hematocrit (blood only) 28.3 % (42-52); Hemoglobin 9.6 g/dL (14.0-18.0); Immature Granulocytes # (auto) 0.05 K/uL (0.00-0.02); Lymphocytes # (auto) 0.61 K/uL (1.2-3.4); Lymphocytes % (auto) 11.7 %; Mean Corpuscular Hemoglobin 31.8 pg (25-34); Mean Corpuscular Hgb Conc 33.9 g/dL (32-36); Mean Corpuscular Volume 93.7 fL (80-100); Monocytes # (auto) 0.55 K/uL (0.11-0.59); Monocytes % (auto) 10.5 %; Neutrophils # (auto) 3.95 K/uL (1.4-6.5); Neutrophils % (auto) 75.6 %; Platelet Count 139 K/uL (130-400); RDW Coefficient of Variation 14.4 % (11.5-14.5); RDW Standard Deviation 49.7 fL (36.4-46.3); Red Blood Count 3.02 M/uL (4.7-6.1); White Blood Count 5.22 K/uL (4.8-10.8)
[2019-05-02 05:51] LABS: Prothrombin Time 36.1 Seconds (9.0-12.0)
[2019-05-02 05:53] LABS: Albumin Level 2.4 gm/dl (3.4-5.0); BUN Creatinine Ratio 33.1 (10-20); Calcium 8.2 mg/dl (8.5-10.1); Creatinine Clr Calc Pharmacy 43.4 ml/min; Est GFR (African American) 55.3; Est GFR (Non-African American) 47.7; INR 3.9 (0.9-1.1); Magnesium 2.2 mg/dl (1.8-2.4); Potassium 4.5 mmol/L (3.5-5.1)
[2019-05-02 05:57] LABS: Albumin Globulin Ratio 0.7 (0.9-2); Bilirubin,Total 0.6 mg/dl (0.2-1); Globulin 3.4 gm/dl (2.5-4.0); Total Protein 5.8 gm/dl (6.4-8.2)
[2019-05-02 06:44] LABS: Appearance Urine Clear (Clear); Bilirubin Urine Negative (Negative); Blood Urine Negative (Negative); Color Urine Yellow; Glucose Urine UA Negative (Negative); Ketones Urine Negative (Negative); Leukocyte Esterase Urine Negative (Negative); Nitrite Urine Negative (Negative); Protein Urine Negative (Negative); Specific Gravity Urine 1.014 (1.000-1.030); Urobilinogen Urine Negative (Negative)
[2019-05-02] MEDS: MAGNESIUM CHLORIDE 64MG DELAYED REL TAB PO SCH ×2 (08:53→20:54)
[2019-05-02] MEDS: METOPROLOL SUCC 50MG EXT REL TAB PO SCH ×2 (08:54→20:54)
[2019-05-02] MEDS: ASPIRIN 81 MG ECTAB PO SCH (08:54)
[2019-05-02] MEDS: ISOSORBIDE MONO EXTENDED REL 60 MG TABCR PO SCH (08:54)
[2019-05-02] MEDS: AMIODARONE 200 MG TAB PO SCH ×2 (08:54→20:54)
[2019-05-02] MEDS ORDERED: TORSEMIDE 10 MG TAB PO SCH (09:30)
--- NOTE | 2019-05-02 09:51 | Nephrology Consultation ---
Date of Consultation May 02, 2019 Assessment & Plan (1) Hyponatremia: Patient admitted with hyponatremia of 121. His serum was 285 which is close to normal. His corrected sodium was close to 124 due to hyperglycemia. His sodium is now up to 128. Patient has CKD stage III unusual hyponatremia and CKD is related to volume overload. Recommend resuming his torsemide at 10 mg daily. His weight of correction is appropriate. -Maintain the fluid restriction of 40 ounces daily. -Monitor sodium daily. (2) CKD stage 3 due to type 2 diabetes mellitus: Patient with CKD stage III due to diabetes with baseline creatinine of 1.5. Admission creatinine was 1.8 which is higher than his baseline. Fluctuations in renal function likely hemodynamically mediated. -Monitor renal function with daily BMP. -Avoid nephrotoxins unless lifesaving. (3) Pacemaker malfunction: Patient admitted with pacemaker malfunction. He is being followed closely by cardiology. His blood pressure and heart rate are stable at the moment. History of Present Illness Reason for Consultation: Hyponatremia Requesting Physician: Gayathri Ann MD Attending Physician: David Swenson MD History of Present Illness This is 79-year-old male who was admitted on 05/01/2019 with pacemaker dysfunction now being evaluated for hyponatremia. He had a sodium of 121 on admission but normal osmolality of 285. Past medical history significant for chronic systolic heart failure secondary to ischemic cardiomyopathy (EF 20-25%, TTE 2017), CAD status post CABG/ stent, A. fib status post PPM on Coumadin, SVT status post ablation, hypertension, hyperlipidemia, hyperparathyroidism status post surgery, DM 2 on oral medications, CRI (baseline creatinine 1.4-1.5), chronic hyponatremia and chronic anemia (baseline hemoglobin of 10). He was hospitalized in 2017 with CHF exacerbation and hyponatremia. He was discharged on diuretics and fluid restriction of 40 ounces daily. He has apparently been increasing his fluid intake. Last night patient had beeps from the pacemaker and come to the emergency room. He awaits cardiology evaluation. No further episodes of pacemaker dysfunction. No shortness of breath or chest pain. No urinary symptoms. Sodium is better at 128 this morning. His creatinine was 1.8 on admission and now down to 1.4. They held his torsemide yesterday. at the bedside give additional history. Allergies Allergy/AdvReac Type Severity Reaction Status Date / Time clopidogrel Allergy Unknown RASH,EDEMA Verified 05/01/19 21:54 Home Medications Home Medications Medication Instructions Recorded Confirmed Type amiodarone 200 mg PO BID 05/01/19 05/01/19 History aspirin 81 mg PO DAILY 05/01/19 05/01/19 History atorvastatin 40 mg PO DAILY 05/01/19 05/01/19 History cholecalciferol (vitamin D3) 2,000 unit PO DAILY 05/01/19 05/01/19 History [Vitamin D3] folic acid 0.4 mg PO DAILY 05/01/19 05/01/19 History glipizide 20 mg PO QAM 05/01/19 05/01/19 History iron,carbonyl-vitamin C [Vitron-C] 1 tab PO BID 05/01/19 05/01/19 History isosorbide mononitrate 60 mg PO DAILY 05/01/19 05/01/19 History magnesium chloride 128 mg PO BID 05/01/19 05/01/19 History metoprolol succinate 75 mg PO HS 05/01/19 05/01/19 History metoprolol succinate 100 mg PO QAM 05/01/19 05/01/19 History repaglinide 2 mg PO QDD 05/01/19 05/01/19 History repaglinide 4 mg PO DAILY@0800,1200 05/01/19 05/01/19 History torsemide 10 mg PO Q2D 05/01/19 05/01/19 History torsemide 20 mg PO Q2D 05/01/19 05/01/19 History warfarin 5 mg PO DAILY 05/01/19 05/01/19 History Patient History Medical History (Updated 05/02/19 @ 09:49 by Hayder Lennon MD) Coronary artery disease (Chronic) "s/p CABG x 3 in 1996, stent to BRANDON in 2011" Diabetes mellitus, type II (Chronic) Diverticula of colon (Chronic) Dyslipidemia (Chronic) History of adenomatous polyp of colon (Chronic) History of DVT (deep vein thrombosis) (Chronic) History of pneumothorax (Chronic) Hyperkalemia (Acute) Hypertension (Chronic) Hyponatremia (Acute) Systolic CHF (Chronic) "2/2 Ischemic cardiomyopathy " V tach (Chronic) "02/2017. 2/2 Failed anti-tachycardia pacing. " On 03/06/17 20:08 Fabienne Miller wrote "02/2017. 2/2 Failed anti-tachycardia pacing. " Surgical History (Updated 05/01/19 @ 23:42 by Devorah Navarrete) H/O parathyroidectomy (Chronic) Status post coronary artery bypass grafting (Chronic) Status post coronary artery stent placement (Chronic) Status post placement of cardiac pacemaker (Chronic) Social History (Updated 05/01/19 @ 23:43 by Devorah Navarrete) Preferred Language: Nepali Communication Ability: Effective Beliefs That Will Affect Care: None Current Living Situation: Spouse Feels Safe at Home: Yes Safety Concerns: Feels Safe At This Time Smoking Status: Former smoker Hx Alcohol Use: No Hx Substance Use: No Review of Systems Review of Systems: All systems reviewed & are unremarkable except as noted in HPI & below Physical Exam Physical Exam: General exam: Appears comfortable, no acute distress HEENT: Pupils are equal and reactive to light Neck: No JVD, neck is supple trachea is midline Respiratory system: Clear breath sounds bilaterally. Gastrointestinal: Abdomen is soft, non distended, non tender, bowel sounds are present CVS: Regular rate and rhythm. No murmurs, rubs or gallops Musculoskeletal: No joint or muscle tenderness Extremities: Non tender, no edema, peripheral pulses are present Neuro: Oriented, no tremors, no focal neurological deficits Skin: No rashes Results & Data Vital Signs (Past 12 Hours) Vital Signs Temp Pulse Pulse Resp BP BP BP 05/02/19 07:21 36.2 C L 60 19 108/62 05/02/19 03:15 59 L 05/02/19 02:55 56 L 105/61 05/02/19 02:11 36.3 C L 60 16 96/56 L 05/02/19 01:46 60 15 108/55 L 05/02/19 01:00 59 L 15 109/54 L 05/02/19 00:00 59 L 16 122/57 L 05/01/19 23:28 60 15 116/58 L 05/01/19 22:50 57 L 18 126/57 L 05/01/19 21:54 60 Pulse Ox 05/02/19 07:21 99 05/02/19 03:15 05/02/19 02:55 05/02/19 02:11 100 05/02/19 01:46 99 05/02/19 01:00 98 05/02/19 00:00 99 05/01/19 23:28 100 05/01/19 22:50 100 05/01/19 21:54 100 Laboratory Results Laboratory Results - last 24 hr 05/01/19 05/01/19 05/01/19 21:48 21:48 21:48 WBC 5.40 RBC 3.16 L Hgb 10.4 L Hct 29.4 L MCV 93.0 MCH 32.9 MCHC 35.4 RDW Std Deviation 48.9 H RDW Coeff of Ash 14.4 Plt Count 148 MPV 10.6 H Immature Gran % (Auto) 0.7 Neut % (Auto) 79.0 Lymph % (Auto) 10.0 [place] % (Auto) 9.4 Eos % (Auto) 0.7 Baso % (Auto) 0.2 Immature Gran # (Auto) 0.04 H Neut # (Auto) 4.26 Lymph # (Auto) 0.54 L [place] # (Auto) 0.51 Eos # (Auto) 0.04 Baso # (Auto) 0.01 PT 32.6 H INR 3.5 H APTT 51.6 H* PTT Ratio 1.9 Sodium 121 L Potassium 4.6 Chloride 88 L Carbon Dioxide 26 Anion Gap 7.0 BUN 53 H Creatinine 1.92 H Est Cr Clr Drug Dosing 32.4 Est GFR ( Amer) 38.1 Est GFR (Non-Af Amer) 32.8 BUN/Creatinine Ratio 27.6 H Glucose 291 H POC Glucose Osmolality Calcium 8.2 L Magnesium 1.7 L Total Bilirubin 0.7 AST 67 H ALT 88 H Alkaline Phosphatase 105 Troponin I 0.020 Total Protein 6.4 Albumin 2.6 L Globulin 3.8 Albumin/Globulin Ratio 0.7 L Lipase 173 TSH 2.320 Urine Color Urine Appearance Urine pH Ur Specific [place] Urine Protein Urine Glucose (UA) Urine Ketones Urine Blood Urine Nitrite Urine Bilirubin Urine Urobilinogen Ur Leukocyte Esterase Urine Osmolality Ur Random Sodium 05/01/19 05/01/19 05/02/19 21:51 23:46 02:26 WBC RBC Hgb Hct MCV MCH MCHC RDW Std Deviation RDW Coeff of Ash Plt Count MPV Immature Gran % (Auto) Neut % (Auto) Lymph % (Auto) [place] % (Auto) Eos % (Auto) Baso % (Auto) Immature Gran # (Auto) Neut # (Auto) Lymph # (Auto) [place] # (Auto) Eos # (Auto) Baso # (Auto) PT INR APTT PTT Ratio Sodium Potassium Chloride Carbon Dioxide Anion Gap BUN Creatinine Est Cr Clr Drug Dosing Est GFR ( Amer) Est GFR (Non-Af Amer) BUN/Creatinine Ratio Glucose POC Glucose 297 H 242 H Osmolality 285 Calcium Magnesium Total Bilirubin AST ALT Alkaline Phosphatase Troponin I Total Protein Albumin Globulin Albumin/Globulin Ratio Lipase TSH Urine Color Urine Appearance Urine pH Ur Specific [place] Urine Protein Urine Glucose (UA) Urine Ketones Urine Blood Urine Nitrite Urine Bilirubin Urine Urobilinogen Ur Leukocyte Esterase Urine Osmolality Ur Random Sodium 05/02/19 05/02/19 05/02/19 05:16 05:16 05:16 WBC 5.22 RBC 3.02 L Hgb 9.6 L Hct 28.3 L MCV 93.7 MCH 31.8 MCHC 33.9 RDW Std Deviation 49.7 H RDW Coeff of Ash 14.4 Plt Count 139 MPV 10.0 Immature Gran % (Auto) 1.0 Neut % (Auto) 75.6 Lymph % (Auto) 11.7 [place] % (Auto) 10.5 Eos % (Auto) 1.0 Baso % (Auto) 0.2 Immature Gran # (Auto) 0.05 H Neut # (Auto) 3.95 Lymph # (Auto) 0.61 L [place] # (Auto) 0.55 Eos # (Auto) 0.05 Baso # (Auto) 0.01 PT 36.1 H INR 3.9 H APTT PTT Ratio Sodium 128 L D Potassium 4.5 Chloride 94 L Carbon Dioxide 29 Anion Gap 5.0 BUN 47 H Creatinine 1.41 H D Est Cr Clr Drug Dosing 43.4 Est GFR ( Amer) 55.3 Est GFR (Non-Af Amer) 47.7 BUN/Creatinine Ratio 33.1 H Glucose 101 H POC Glucose Osmolality Calcium 8.2 L Magnesium 2.2 Total Bilirubin 0.6 AST 53 H ALT 78 Alkaline Phosphatase 89 Troponin I Total Protein 5.8 L Albumin 2.4 L Globulin 3.4 Albumin/Globulin Ratio 0.7 L Lipase TSH Urine Color Urine Appearance Urine pH Ur Specific [place] Urine Protein Urine Glucose (UA) Urine Ketones Urine Blood Urine Nitrite Urine Bilirubin Urine Urobilinogen Ur Leukocyte Esterase Urine Osmolality Ur Random Sodium 05/02/19 05/02/19 05/02/19 05:30 05:30 05:30 WBC RBC Hgb Hct MCV MCH MCHC RDW Std Deviation RDW Coeff of Ash Plt Count MPV Immature Gran % (Auto) Neut % (Auto) Lymph % (Auto) [place] % (Auto) Eos % (Auto) Baso % (Auto) Immature Gran # (Auto) Neut # (Auto) Lymph # (Auto) [place] # (Auto) Eos # (Auto) Baso # (Auto) PT INR APTT PTT Ratio Sodium Potassium Chloride Carbon Dioxide Anion Gap BUN Creatinine Est Cr Clr Drug Dosing Est GFR ( Amer) Est GFR (Non-Af Amer) BUN/Creatinine Ratio Glucose POC Glucose Osmolality Calcium Magnesium Total Bilirubin AST ALT Alkaline Phosphatase Troponin I Total Protein Albumin Globulin Albumin/Globulin Ratio Lipase TSH Urine Color Yellow Urine Appearance Clear Urine pH 5.0 Ur Specific [place] 1.014 Urine Protein Negative Urine Glucose (UA) Negative Urine Ketones Negative Urine Blood Negative Urine Nitrite Negative Urine Bilirubin Negative Urine Urobilinogen Negative Ur Leukocyte Esterase Negative Urine Osmolality 237 L Ur Random Sodium 05/02/19 07:20 WBC RBC Hgb Hct MCV MCH MCHC RDW Std Deviation RDW Coeff of Ash Plt Count MPV Immature Gran % (Auto) Neut % (Auto) Lymph % (Auto) [place] % (Auto) Eos % (Auto) Baso % (Auto) Immature Gran # (Auto) Neut # (Auto) Lymph # (Auto) [place] # (Auto) Eos # (Auto) Baso # (Auto) PT INR APTT PTT Ratio Sodium Potassium Chloride Carbon Dioxide Anion Gap BUN Creatinine Est Cr Clr Drug Dosing Est GFR ( Amer) Est GFR (Non-Af Amer) BUN/Creatinine Ratio Glucose POC Glucose 83 Osmolality Calcium Magnesium Total Bilirubin AST ALT Alkaline Phosphatase Troponin I Total Protein Albumin Globulin Albumin/Globulin Ratio Lipase TSH Urine Color Urine Appearance Urine pH Ur Specific [place] Urine Protein Urine Glucose (UA) Urine Ketones Urine Blood Urine Nitrite Urine Bilirubin Urine Urobilinogen Ur Leukocyte Esterase Urine Osmolality Ur Random Sodium (1) Pacemaker malfunction Encounter type: initial encounter Qualified Code(s): T82.111A - Breakdown (mechanical) of cardiac pulse generator (battery), initial encounter
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
[2019-05-02 13:39] LABS: Albumin Level 2.3 gm/dl (3.4-5.0); Calcium 8.1 mg/dl (8.5-10.1); Creatinine Clr Calc Pharmacy 44.6 ml/min; Est GFR (African American) 57.3; Est GFR (Non-African American) 49.4; Potassium 4.4 mmol/L (3.5-5.1)
[2019-05-02 13:41] LABS: Albumin Globulin Ratio 0.7 (0.9-2); Bilirubin,Total 0.6 mg/dl (0.2-1); Globulin 3.4 gm/dl (2.5-4.0); Total Protein 5.7 gm/dl (6.4-8.2)
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
[2019-05-02] MEDS ORDERED: METOPROLOL SUCC 25MG EXT REL TAB PO SCH (21:00)
[2019-05-03 06:16] LABS: Basophils # (auto) 0.01 K/uL (0-0.2); Basophils % (auto) 0.2 %; Eosinophils # (auto) 0.04 K/uL (0-0.5); Eosinophils % (auto) 0.8 %; Hematocrit (blood only) 28.3 % (42-52); Hemoglobin 9.7 g/dL (14.0-18.0); Immature Granulocytes # (auto) 0.02 K/uL (0.00-0.02); Immature Granulocytes % (auto) 0.4 %; Lymphocytes # (auto) 0.49 K/uL (1.2-3.4); Lymphocytes % (auto) 9.6 %; Mean Corpuscular Hgb Conc 34.3 g/dL (32-36); Mean Corpuscular Volume 93.4 fL (80-100); Mean Platelet Volume 10.2 fL (7.4-10.4); Monocytes # (auto) 0.52 K/uL (0.11-0.59); Monocytes % (auto) 10.2 %; Neutrophils # (auto) 4.02 K/uL (1.4-6.5); Neutrophils % (auto) 78.8 %; Platelet Count 138 K/uL (130-400); RDW Standard Deviation 50.8 fL (36.4-46.3); Red Blood Count 3.03 M/uL (4.7-6.1)
[2019-05-03 06:27] LABS: INR 3.4 (0.9-1.1); Prothrombin Time 31.8 Seconds (9.0-12.0)
[2019-05-03 06:54] LABS: Albumin Level 2.3 gm/dl (3.4-5.0); BUN Creatinine Ratio 35.7 (10-20); Calcium 8.3 mg/dl (8.5-10.1); Creatinine Clr Calc Pharmacy 42.8 ml/min; Est GFR (African American) 54.8; Est GFR (Non-African American) 47.3; Potassium 4.6 mmol/L (3.5-5.1)
[2019-05-03 06:59] LABS: Albumin Globulin Ratio 0.6 (0.9-2); Bilirubin,Total 0.7 mg/dl (0.2-1); Globulin 3.6 gm/dl (2.5-4.0); Total Protein 5.9 gm/dl (6.4-8.2)
[2019-05-03] MEDS: INSULIN ASPART 100 UNITS/ML 3 ML PEN SC SCH (08:11)
[2019-05-03] MEDS: ASPIRIN 81 MG ECTAB PO SCH (08:12)
[2019-05-03] MEDS: MAGNESIUM CHLORIDE 64MG DELAYED REL TAB PO SCH (08:14)
[2019-05-03] MEDS: ISOSORBIDE MONO EXTENDED REL 60 MG TABCR PO SCH (08:14)
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
[2019-05-03] MEDS ORDERED: INSULIN GLARGINE SOLOSTAR 100 UNITS/ML 3 ML PEN SQ SCH (09:00)
[2019-05-03] MEDS: METOPROLOL SUCC 50MG EXT REL TAB PO SCH (09:04)
[2019-05-03] MEDS: AMIODARONE 200 MG TAB PO SCH (09:04)
[2019-05-03] MEDS ORDERED: TORSEMIDE 10 MG TAB PO SCH (10:00)
== END 2019-05-03 10:08 | disposition home or self-care (01) | DRG 309 ==
LOC: ED 21:14 → 2S 05-02 01:29 → SUATTDRO 05-02 01:29 → 2S 05-02 01:50